=== PATIENT | female | born 1965 | race Caucasian/White ===

== ENCOUNTER → 2016-09-01 | Outpatient (CLI) | payer OTHER ==
[~2016-09-01] MED LIST: ACET-1047 PO; ACET-1256 PO; ATOR-22 PO; CLOP1TAB15; CLOP1TAB15 PO; DFL50 PO; FOLI1TAB7 PO; GLIM2TAB2 PO; GLIP5TAB11 PO; LRT5 PO; MCTP EXT; METF500T PO; MRLP17X PO; MTR500 PO; NCDT21X TD; SENN-65 PO; ZNTT/150 PO
[2016-09-01 17:22] LABS: BASO % 0.6 %; BASO ABS # 0.06 K/uL (0-0.2); COMPLETE YES; EOS % 2.6 %; HEMATOCRIT 48.2 % (37-47); IG% 0.2 %; LYMPH % 37.5 %; LYMPH ABS # 3.86 K/uL (1.2-3.4); MEAN CELL VOLUME 101.9 fL (80-100); MEAN CORPUSCULAR HEMOGLOBIN 34.9 pg (25-34); MEAN CORPUSCULAR HGB CONC 34.2 g/dl (32-36); MONO % 4.6 %; NEUT % 54.5 %; PLATELET COUNT 287 K/uL (130-400); RED BLOOD COUNT 4.73 M/uL (4.2-5.4); WHITE BLOOD COUNT 10.29 K/uL (4.8-10.8)
[2016-09-01 17:44] LABS: ALT/SGPT 22 U/L (12-78); BLOOD UREA NITROGEN 5 mg/dl (7-18); CALCIUM 9.7 mg/dl (8.5-10.1); CARBON DIOXIDE 26 mmol/L (21-32); CHLORIDE 99 mmol/L (98-107); CHOLESTEROL 231 mg/dl (0-200); CREATININE 0.77 mg/dl (0.60-1.20); GLUCOSE 142 mg/dl (70-99); POTASSIUM 3.7 mmol/L (3.5-5.1); SODIUM 135 mmol/L (136-145)
[2016-09-01 17:47] LABS: ALB/GLOB RATIO 0.7 (0.9-2); ALKALINE PHOSPHATASE 154 U/L (45-117); AST/SGOT 26 U/L (15-37); CHOLESTEROL/HDL RATIO 5.5; HDL CHOLESTEROL 42 mg/dl; LDL CHOLESTEROL CALCULATED 149 mg/dl; TRIGLYCERIDES 198 mg/dl (0-150); VERY LOW DENSITY LIPOPROT CALC 40 mg/dl
[2016-09-02 07:44] LABS: ESTIMATED AVERAGE GLUCOSE 194 mg/dl; HA1C FLAG Normal (Normal)
== END | disposition home or self-care (01) ==
LOC: C.LAB1850 15:58
PROVIDERS: ATTEND Physician Assistant
DX: E11.9 Type 2 diabetes mellitus without complications (principal)

== ENCOUNTER 2016-10-28 14:24 | Inpatient (IN) | payer OTHER ==
[~2016-10-28] VITALS: Ht 167.6 cm; Wt 69.7 kg
[~2016-10-28 14:24] MED LIST changes: -ACET-1047 PO; -ACET-1256 PO; -ATOR-22 PO; -CLOP1TAB15 PO; -DFL50 PO; -FOLI1TAB7 PO; -GLIM2TAB2 PO; -GLIP5TAB11 PO; -MCTP EXT; -METF500T PO; -MRLP17X PO; -MTR500 PO; -SENN-65 PO; -ZNTT/150 PO
[2016-10-28] MEDS ORDERED: SODIUM CHLORIDE 0.9% 1000ML 1,000 ML IV SCH (15:33)
[2016-10-28] MEDS ORDERED: GLIM2TAB2 PO (15:37)
[2016-10-28] MEDS ORDERED: CLOP1TAB15 PO (15:37)
[2016-10-28] MEDS ORDERED: ACET-1256 PO (15:37)
[2016-10-28] MEDS ORDERED: ZNTT/150 PO (15:37)
[2016-10-28] MEDS ORDERED: HYDROCODONE/ACETAMOPHEN 5/325MG TAB PO STA ×2 (15:45→17:22)
--- NOTE | 2016-10-28 15:55 | DIAGNOSTIC IMAGING REPORT ---
CHEST ONE VIEW PORTABLE HISTORY: 51 years-old Female acute weakness COMPARISON: Chest radiograph 08/22/2012 TECHNIQUE: Portable upright AP view of the chest FINDINGS: Patient is slightly rotated to the left. Cardiomediastinal and hilar silhouettes are within normal limits. No pneumothorax, pleural effusion or focal airspace consolidation. The bones are grossly intact. IMPRESSION: No acute cardiopulmonary process. The above report was generated using voice recognition software. It may contain grammatical, syntax or spelling errors. Electronically signed by: Hudson Strange M.D. 10/28/2016 3:53 PM Dictated Date/Time: 10/28/2016 3:52 PM
--- NOTE | 2016-10-28 16:21 | EMERGENCY ROOM VISIT NOTE ---
History First contact with patient: 15:00 Chief Complaint: WEAKNESS Stated Complaint: FALL/ EVAL Nursing Triage Summary: increasing weakness over the last 2-3 weeks. she has had a very bad yeast infection, treated. has not been eating and drinking well due to not being able to get to the bathroom. and fell today. 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 History of Present Illness The patient is a 51 year old female who presents to the Emergency Room with complaints of "fall". The patient states that she has a history of CVA, 11 years ago. She states that over the past 2-3 weeks she has had increasing weakness, and not been eating well. Because she is unable to get up to the bathroom, she has been swelling herself. This has led to a yeast infection. She's been battling this with powder. She is also present with a male, identified as her boyfriend. This is also her health aide. She also has aphasia, but is able to comprehend. 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 She has a past medical history of diabetes. They state they have called the family doctor, [facility] have been directed here to the emergency department for potential admission so that she can care for her immediate health problems, and then follow-up for rehabilitation. She also requests that we remove the ring on her left ring finger is been stuck for the past 3 months. Review of Systems A complete 10-point Review of Systems was discussed with the patient, with pertinent positives and negatives listed in the History of Present Illness. All remaining Review of Systems questions can be considered negative unless otherwise specified. 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 Social History Smoking Status: Current Every Day Smoker Alcohol Use: heavy Drug Use: none Marital Status: Housing Status: lives with family Occupation Status: disabled Patient lives at home with boyfriend/crown and bridge dental lab technician. Current/Historical Medications Scheduled Clopidogrel (Plavix), 75 MG PO DAILY Glimepiride (Glimepiride), 2 MG PO DAILY Scheduled PRN Acetaminophen (Tylenol), 1,500 MG PO DAILY PRN for Pain Ranitidine (Zantac), 150 MG PO Q12 PRN for HEARTBURN Physical Exam Vital Signs Date Time Temp Pulse Resp B/P (MAP) Pulse Ox O2 Delivery O2 Flow Rate FiO2 10/28/16 18:30 62 16 145/81 10/28/16 17:27 64 18 158/84 10/28/16 15:47 99 Room Air 10/28/16 14:30 37.0 101 20 179/132 99 Room Air Physical Exam VITAL SIGNS - Vital signs and nursing notes were reviewed. Patient is afebrile , hypertensive at 139/132, nontachypneic cardiac and is saturating 99%. GENERAL -51-year-old female appearing her stated age who is in no acute distress. Patient does appear to be paralyzed on the right side. She communicates in partial sentences. Communicates well with provider and answers questions appropriately. SKIN - Without rashes. There is a well-healed surgical scar on the left medial knee. HEAD - NC/AT. EYES - Sclera anicteric. Palpebral conjunctiva pink and moist with no injection noted. EARS - No deformities of external structures noted on gross examination bilaterally. NOSE - Midline and without cyanosis. No epistaxis or purulent drainage noted. MOUTH/OROPHARYNX - Without perioral cyanosis. Buccal mucosa pink and moist and without leukoplakia. NECK - Neck with FROM. Supple to palpation. No lymphadenopathy noted. No nuchal rigidity. LUNGS - Chest wall symmetric without accessory muscle use, intercostals retractions, or central cyanosis. Normal vesicular breath sounds CTA B/L. No wheezes, rales, or rhonchi appreciated. CARDIAC - RRR with S1/S2. No murmur, rubs, or gallops appreciated. NEUROLOGIC - neurologic deficits appreciated upon the patient's right side. These appear to be chronic. PSYCH - A&O, and cooperates fully with examiner. Pt is very pleasant and interacts well with examiner. Medical Decision & Procedures ER Provider Diagnostic Interpretation: CHEST ONE VIEW PORTABLE HISTORY: 51 years-old Female acute weakness COMPARISON: Chest radiograph 08/22/2012 TECHNIQUE: Portable upright AP view of the chest FINDINGS: Patient is slightly rotated to the left. Cardiomediastinal and hilar silhouettes are within normal limits. No pneumothorax, pleural effusion or focal airspace consolidation. The bones are grossly intact. IMPRESSION: No acute cardiopulmonary process. The above report was generated using voice recognition software. It may contain grammatical, syntax or spelling errors. Electronically signed by: Hudson Strange M.D. 10/28/2016 3:53 PM Dictated Date/Time: 10/28/2016 3:52 PM HEAD WITHOUT CONTRAST (CT) CLINICAL HISTORY: 51 years-old Female presenting with Stroke, weakness for 2 to 3 weeks. TECHNIQUE: Multidetector CT imaging of the head was performed without the use of intravenous contrast. IV contrast: None. A dose lowering technique was used consistent with the principles of ALARA (as low as reasonably achievable). COMPARISON: 08/22/2012. CT DOSE (mGy.cm): The estimated cumulative dose is 537.48 mGy.cm. FINDINGS: Metallurgical Inspector topogram: Unremarkable. Proportional ventricular and sulcal prominence, likely age-related parenchymal volume loss. Periventricular and subcortical white matter hypoattenuation, nonspecific but likely indicative of chronic small vessel ischemic change. Old lacunar infarct noted in the right basal ganglia. Evidence of extensive chronic left MCA territory infarct unchanged in appearance as prior exam. No mass effect or midline shift. No extra-axial fluid collection. Paranasal sinuses and mastoid air cells clear. Calvarium intact. IMPRESSION: 1. No acute intracranial pathology. 2. Chronic left MCA territory infarct, old right basal ganglia infarct, and chronic small vessel ischemic change. Electronically signed by: Arcenio Todd M.D. 10/28/2016 4:54 PM Dictated Date/Time: 10/28/2016 4:51 PM Laboratory Results 10/28/16 16:10 Red Blood Count 4.88, Mean Corpuscular Volume 103.1, Mean Corpuscular Hemoglobin 34.4, Mean Corpuscular Hemoglobin Concent 33.4, Mean Platelet Volume 9.7, Neutrophils (%) (Auto) 59.8, Lymphocytes (%) (Auto) 32.5, Monocytes (%) ( Auto) 4.7, Eosinophils (%) (Auto) 2.3, Basophils (%) (Auto) 0.4, Neutrophils # ( Auto) 5.54, Lymphocytes # (Auto) 3.01, Monocytes # (Auto) 0.44, Eosinophils # ( Auto) 0.21, Basophils # (Auto) 0.04 10/28/16 16:10 Test 10/28/16 16:10 White Blood Count 9.27 K/uL (4.8-10.8) Red Blood Count 4.88 M/uL (4.2-5.4) Hemoglobin 16.8 g/dL (12.0-16.0) Hematocrit 50.3 % (37-47) Mean Corpuscular Volume 103.1 fL (80-100) Mean Corpuscular Hemoglobin 34.4 pg (25-34) Mean Corpuscular Hemoglobin Concent 33.4 g/dl (32-36) Platelet Count 412 K/uL (130-400) Mean Platelet Volume 9.7 fL (7.4-10.4) Neutrophils (%) (Auto) 59.8 % Lymphocytes (%) (Auto) 32.5 % Monocytes (%) (Auto) 4.7 % Eosinophils (%) (Auto) 2.3 % Basophils (%) (Auto) 0.4 % Neutrophils # (Auto) 5.54 K/uL (1.4-6.5) Lymphocytes # (Auto) 3.01 K/uL (1.2-3.4) Monocytes # (Auto) 0.44 K/uL (0.11-0.59) Eosinophils # (Auto) 0.21 K/uL (0-0.5) Basophils # (Auto) 0.04 K/uL (0-0.2) RDW Standard Deviation 52.0 fL (36.4-46.3) RDW Coefficient of Variation 13.9 % (11.5-14.5) Immature Granulocyte % (Auto) 0.3 % Immature Granulocyte # (Auto) 0.03 K/uL (0.00-0.02) Prothrombin Time 10.7 SECONDS (9.0-12.0) Prothromb Time International Ratio 1.0 (0.9-1.1) Activated Partial Thromboplast Time 27.8 SECONDS (21.0-31.0) Partial Thromboplastin Ratio 1.1 Anion Gap 9.0 mmol/L (3-11) Est Creatinine Clear Calc Drug Dose 78.8 ml/min Estimated GFR () 89.4 Estimated GFR (Non- 77.1 BUN/Creatinine Ratio 8.9 (10-20) Calcium Level 9.5 mg/dl (8.5-10.1) Total Creatine Kinase 40 U/L (26-192) Creatine Kinase MB < 0.5 ng/ml (0.5-3.6) Creatine Kinase MB Ratio (0-3.0) Troponin I < 0.015 ng/ml (0-0.045) Chemistry Specimen Hemolysis Medications Administered Medications (Trade) Dose Ordered Sig/Chato Route Start Time Stop Time Status Last Admin Dose Admin Sodium Chloride 1,000 ml @ 50 mls/hr Q20H IV 10/28/16 15:33 10/28/16 18:51 DC 10/28/16 17:32 50 MLS/HR Acetaminophen/ Hydrocodone Bitart ([place] 5/325 Tab) 1 tab NOW STAT PO 10/28/16 17:22 10/28/16 17:23 DC 10/28/16 17:35 1 TAB Acetaminophen/ Hydrocodone Bitart ([place] 5/325 Tab) 1 tab Q6H PRN PO 10/28/16 18:30 11/11/16 18:29 10/28/16 23:20 1 TAB Medical Decision Patient was seen and evaluated as above. After obtaining a thorough history and physical examination IV access was initiated, and the above workup was performed. Patient was at store today with essentially failure to thrive at home. Her crown and bridge dental lab technician notes he is doing everything he can for her, but feels as though he is unable to provide for her basic needs. She also has progressive weakness, 2 point were she cannot get to use the bathroom and is becoming incontinent because of such. She now has a yeast like infection around her genital region. There is no vaginal discharge. She requests that we cut her ring off, as she is unable to remove it and something for pain in regard to her left knee. She will be given [place]. CT of the head reveals old infarcts. Bedside EKG does appear to be worse compared to previous, but no evidence of an NE at this time. CBC reveals no leukocytosis, hemoglobin is high at 16. Coags unremarkable. Sodium low at 134, kidney function okay, troponin negative. Chest x-ray negative for acute process. At this time I believe the patient should be admitted to this facility to help with her failure to thrive, as well as to further management. Please refer to further documentation regarding her stay. In evaluation treatment this patient the following differential diagnoses were entertained: Failure to thrive, new CVA, infection, on others. Impression Primary Impression: Failure to thrive Departure Information Dispostion Admitted as an inpatient Condition POOR Referrals Pro,Ant Odell M.D. (PCP) Patient Instructions [facility]
[2016-10-28 16:22] LABS: BASO % 0.4 %; BASO ABS # 0.04 K/uL (0-0.2); COMPLETE YES; EOS % 2.3 %; HEMATOCRIT 50.3 % (37-47); IG% 0.3 %; LYMPH % 32.5 %; LYMPH ABS # 3.01 K/uL (1.2-3.4); MEAN CELL VOLUME 103.1 fL (80-100); MEAN CORPUSCULAR HEMOGLOBIN 34.4 pg (25-34); MEAN CORPUSCULAR HGB CONC 33.4 g/dl (32-36); MEAN PLATELET VOLUME 9.7 fL (7.4-10.4); MONO % 4.7 %; NEUT % 59.8 %; PLATELET COUNT 412 K/uL (130-400); RED BLOOD COUNT 4.88 M/uL (4.2-5.4); WHITE BLOOD COUNT 9.27 K/uL (4.8-10.8)
[2016-10-28 16:39] LABS: PARTIAL THROMBOPLASTIN RATIO 1.1; PROTHROMBIN TIME (PATIENT) 10.7 SECONDS (9.0-12.0)
[2016-10-28 16:42] LABS: BLOOD UREA NITROGEN 8 mg/dl (7-18); BUN/CREATININE RATIO 8.9 (10-20); CALCIUM 9.5 mg/dl (8.5-10.1); CARBON DIOXIDE 26 mmol/L (21-32); CHLORIDE 99 mmol/L (98-107); CREATININE 0.87 mg/dl (0.60-1.20); GLUCOSE 117 mg/dl (70-99); POTASSIUM 3.7 mmol/L (3.5-5.1); SODIUM 134 mmol/L (136-145)
--- NOTE | 2016-10-28 16:55 | DIAGNOSTIC IMAGING REPORT ---
HEAD WITHOUT CONTRAST (CT) CLINICAL HISTORY: 51 years-old Female presenting with Stroke, weakness for 2 to 3 weeks. TECHNIQUE: Multidetector CT imaging of the head was performed without the use of intravenous contrast. IV contrast: None. A dose lowering technique was used consistent with the principles of ALARA (as low as reasonably achievable). COMPARISON: 08/22/2012. CT DOSE (mGy.cm): The estimated cumulative dose is 537.48 mGy.cm. FINDINGS: Advertisement Distributor topogram: Unremarkable. Proportional ventricular and sulcal prominence, likely age-related parenchymal volume loss. Periventricular and subcortical white matter hypoattenuation, nonspecific but likely indicative of chronic small vessel ischemic change. Old lacunar infarct noted in the right basal ganglia. Evidence of extensive chronic left MCA territory infarct unchanged in appearance as prior exam. No mass effect or midline shift. No extra-axial fluid collection. Paranasal sinuses and mastoid air cells clear. Calvarium intact. IMPRESSION: 1. No acute intracranial pathology. 2. Chronic left MCA territory infarct, old right basal ganglia infarct, and chronic small vessel ischemic change. Electronically signed by: Arcenio Todd M.D. 10/28/2016 4:54 PM Dictated Date/Time: 10/28/2016 4:51 PM
[2016-10-28] MEDS ORDERED: RANITIDINE HCL 150 MG TAB PO PRN (18:30)
[2016-10-28] MEDS ORDERED: ONDANSETRON INJ 2 MG/ML 2 ML VIAL IV PRN (18:30)
[2016-10-28] MEDS ORDERED: ALUMINUM/MAGNESIUM/SIMETH (MAALOX MAX) 30 ML UDC PO PRN (18:30)
[2016-10-28] MEDS ORDERED: MAGNESIUM HYDROXIDE SUSP 30 ML UDC PO PRN (18:30)
--- NOTE | 2016-10-28 18:53 | History and Physical ---
History & Physical Date & Time of Service: Oct 28, 2016 at 18:36 Chief Complaint: Fall/ Eval Primary Care Physician: Ant Sprague M.D. History of Present Illness Source: patient, caregiver, clinic records, hospital records Patient is a pleasant 51 y/o female, with 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 Per cyber legal advisor/boyfriend, him and patient would like patient to go to [facility] for acute rehab. Patient has been there in the past with great success. The boyfriend has spoken to [facility], but they will not take patient with yeast infection. Patient has been battling vaginal yeast infection x2 months now- being treated with Nystatin powder. However, the patient is incontinent of urine and she has become so weak she cannot get up to change herself, worsening the infection. Engine Manager states she will lay in a wet diaper for hours. Patient just hasn't been feeling like being active lately, which has led to a progression of weakness, now at that point that she cannot get out of bed. Boyfriend/cyber legal advisor states he can no longer care for her at this point. At baseline, patient is able to change herself and bathe herself. She has been eating/drinking very little due to fear of urinating and worsening vaginal symptoms. Additionally, patient has chronic knee pain which has led to decreased mobility. Per cyber legal advisor, no one will operate on her knees due to her young age. +vaginal itchiness. Patient denies any fever, chills, sweats, lightheadedness, dizziness, vision changes, CP, palpitations, edema, SOB, wheezing, cough, abdominal pain, nausea, vomiting, diarrhea, urinary symptoms, melena, numbness/tingling, muscle/joint pain, anxiety/depression, active bleeding, or new skin discoloration/changes. Past Medical/Surgical History Medical Problems: CVA T2DM GERD Chronic knee pain h/o tobacco abuse Social History Smoking Status: Current Every Day Smoker Drug Use: none Marital Status: Housing status: lives with family Occupational Status: disabled Immunizations History of Influenza Vaccine: No History of Tetanus Vaccine?: UTD History of Pneumococcal: No History of Hepatitis B Vaccine: Unknown Multi-Drug Resistant Organisms History of MDRO: No Allergies Coded Allergies: No Known Allergies (Verified , 02/01/06) Home Medications Scheduled Clopidogrel (Plavix), 75 MG PO DAILY Glimepiride (Glimepiride), 2 MG PO DAILY Scheduled PRN Acetaminophen (Tylenol), 1,500 MG PO DAILY PRN for Pain Ranitidine (Zantac), 150 MG PO Q12 PRN for HEARTBURN Physical Exam Vital Signs Date Time Temp Pulse Resp B/P (MAP) Pulse Ox O2 Delivery O2 Flow Rate FiO2 10/28/16 17:27 64 18 158/84 10/28/16 15:47 99 Room Air 10/28/16 14:30 37.0 101 20 179/132 99 Room Air Diagnostics Laboratory Results Results Past 24 Hours Test 10/28/16 16:10 Range/Units White Blood Count 9.27 4.8-10.8 K/uL Red Blood Count 4.88 4.2-5.4 M/uL Hemoglobin 16.8 12.0-16.0 g/dL Hematocrit 50.3 37-47 % Mean Corpuscular Volume 103.1 80-100 fL Mean Corpuscular Hemoglobin 34.4 25-34 pg Mean Corpuscular Hemoglobin Concent 33.4 32-36 g/dl Platelet Count 412 130-400 K/uL Mean Platelet Volume 9.7 7.4-10.4 fL Neutrophils (%) (Auto) 59.8 % Lymphocytes (%) (Auto) 32.5 % Monocytes (%) (Auto) 4.7 % Eosinophils (%) (Auto) 2.3 % Basophils (%) (Auto) 0.4 % Neutrophils # (Auto) 5.54 1.4-6.5 K/uL Lymphocytes # (Auto) 3.01 1.2-3.4 K/uL Monocytes # (Auto) 0.44 0.11-0.59 K/uL Eosinophils # (Auto) 0.21 0-0.5 K/uL Basophils # (Auto) 0.04 0-0.2 K/uL RDW Standard Deviation 52.0 36.4-46.3 fL RDW Coefficient of Variation 13.9 11.5-14.5 % Immature Granulocyte % (Auto) 0.3 % Immature Granulocyte # (Auto) 0.03 0.00-0.02 K/uL Prothrombin Time 10.7 9.0-12.0 SECONDS Prothromb Time International Ratio 1.0 0.9-1.1 Activated Partial Thromboplast Time 27.8 21.0-31.0 SECONDS Partial Thromboplastin Ratio 1.1 Sodium Level 134 136-145 mmol/L Potassium Level 3.7 3.5-5.1 mmol/L Chloride Level 99 98-107 mmol/L Carbon Dioxide Level 26 21-32 mmol/L Anion Gap 9.0 3-11 mmol/L Blood Urea Nitrogen 8 7-18 mg/dl Creatinine 0.87 0.60-1.20 mg/dl Est Creatinine Clear Calc Drug Dose 78.8 ml/min Estimated GFR () 89.4 Estimated GFR (Non- 77.1 BUN/Creatinine Ratio 8.9 10-20 Random Glucose 117 70-99 mg/dl Calcium Level 9.5 8.5-10.1 mg/dl Total Creatine Kinase 40 26-192 U/L Creatine Kinase MB < 0.5 0.5-3.6 ng/ml Creatine Kinase MB Ratio 0-3.0 Troponin I < 0.015 0-0.045 ng/ml Chemistry Specimen Hemolysis Diagnostic Radiology HEAD WITHOUT CONTRAST (CT) CLINICAL HISTORY: 51 years-old Female presenting with Stroke, weakness for 2 to 3 weeks. TECHNIQUE: Multidetector CT imaging of the head was performed without the use of intravenous contrast. IV contrast: None. A dose lowering technique was used consistent with the principles of ALARA (as low as reasonably achievable). COMPARISON: 08/22/2012. CT DOSE (mGy.cm): The estimated cumulative dose is 537.48 mGy.cm. FINDINGS: Senior Research Scientist topogram: Unremarkable. Proportional ventricular and sulcal prominence, likely age-related parenchymal volume loss. Periventricular and subcortical white matter hypoattenuation, nonspecific but likely indicative of chronic small vessel ischemic change. Old lacunar infarct noted in the right basal ganglia. Evidence of extensive chronic left MCA territory infarct unchanged in appearance as prior exam. No mass effect or midline shift. No extra-axial fluid collection. Paranasal sinuses and mastoid air cells clear. Calvarium intact. IMPRESSION: 1. No acute intracranial pathology. 2. Chronic left MCA territory infarct, old right basal ganglia infarct, and chronic small vessel ischemic change. Electronically signed by: Arcenio Todd M.D. 10/28/2016 4:54 PM Dictated Date/Time: 10/28/2016 4:51 PM The status of this report is Signed. Draft = Not yet reviewed or approved by Radiologist. Signed = Reviewed and approved by Radiologist. CHEST ONE VIEW PORTABLE HISTORY: 51 years-old Female acute weakness COMPARISON: Chest radiograph 08/22/2012 TECHNIQUE: Portable upright AP view of the chest FINDINGS: Patient is slightly rotated to the left. Cardiomediastinal and hilar silhouettes are within normal limits. No pneumothorax, pleural effusion or focal airspace consolidation. The bones are grossly intact. IMPRESSION: No acute cardiopulmonary process. The above report was generated using voice recognition software. It may contain grammatical, syntax or spelling errors. Electronically signed by: Hudson Strange M.D. 10/28/2016 3:53 PM Dictated Date/Time: 10/28/2016 3:52 PM The status of this report is Signed. Draft = Not yet reviewed or approved by Radiologist. Signed = Reviewed and approved by Radiologist. EKG DARCI JACOBSON ID:[id number] 28-OCT-2016 15:58:14 [facility] Poor data quality, interpretation may be adversely affected Normal sinus rhythm Nonspecific T wave abnormality Abnormal ECG When compared with ECG of 01-FEB-2006 16:44, Nonspecific T wave abnormality, worse in Inferior leads Nonspecific T wave abnormality now evident in Lateral leads 25mm/s 10mm/mV 150Hz 8.0 SP2 12SL 241 [place]: 10 Referred by: Ant Sprague Unconfirmed Vent. 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 Progressive weakness: - Admit to med/surg - PT/OT - Patient/boyfriend hoping for placement at [facility] Vaginal yeast infection: - Continue Nystatin powder BID - Encouraged cleanliness and keeping area dry h/o CVA w/ residual right-sided paralysis and asphasia: Continue Plavix 75 mg daily T2DM: - Hold Glimepiride 2 mg daily - BSG ACHS and sliding insulin scale Tobacco abuse- smoke 1-1.5 ppd: - Smoking cessation counselling - Denies need for nicotine patch Chronic knee pain: [place] q6 PRN for management GERD: Zantac 150 mg BID DVT prophylaxis: Lovenox SQ Dispo: From home, lives w/ cyber legal advisor/boyfriend- PT/OT and social service consultation for hopeful placement to [facility] i personally examined pt and verified all gay points w T Murarik PAC weak. boyfriend notes taht due to pain from skin/yeast she was not eating in the hopes she wouldn't have BM then she got weaker from there. now can't take care of her notes that this has happened before similar situations and with nutrition support and PT/OT she's done better. notes [facility] "works miracles' but also notes that after one [facility] stay she was then transitioned to [facility] and they would not at all want to go back there. vitals noted nad breathing unlabored no pallor or icterus failure to thrive -suspect boyfriend's dx that poor PO intake led to worsenign decline and now she 's too weak to care for herself is correct -PT/OT -nutritional support -anticipate [facility] placement skin yeast infection -local skin care otherwise as above Level of Care Med/Surg Resuscitation Status FULL RESUSCITATION VTE Prophylaxis VTE Risk Assessment Done? Y/N: Yes Risk Level: Moderate Given or contraindicated: Enoxaparin (Lovenox)SQ, T.E.D. Stockings, SCD's
[2016-10-28 18:59] VITALS: BMI 26.4
[2016-10-28] MEDS ORDERED: GLUCAGON FOR INJ 1 MG VIAL SQ PRN (19:00)
[2016-10-28] MEDS ORDERED: GLUCOSE 40% GEL 15 GM TUBE PO PRN (19:00)
[2016-10-28] MEDS ORDERED: POLYETHYLENE (MIRALAX) 17 GM PACK PO PRN (19:00)
[2016-10-28] MEDS ORDERED: GLUCOSE 10 TABS/TUBE PO PRN (19:00)
[2016-10-28] MEDS ORDERED: DEXTROSE 50% 50 ML SYR IV PRN (19:00)
[2016-10-28 20:49] VITALS: BP 135/91; PULSE 88; TEMP 36.6; O2SAT 98
[2016-10-28] MEDS: INSULIN ASPART 100 UNITS/ML 3 ML PEN SC SCH (21:00)
[2016-10-28] MEDS: NYSTATIN POWDER 15GM BTL EXT SCH (21:44)
[2016-10-28 23:20] VITALS: BP 117/68; PULSE 77; TEMP 36.7; O2SAT 97
[2016-10-28] MEDS: HYDROCODONE/ACETAMOPHEN 5/325MG TAB PO PRN (23:20)
[2016-10-28] MEDS ORDERED: PNEUMOCOCCAL POLYSACCHARIDES 25 MCG/0.5 ML VIAL/SYR IM. ONE (23:30)
[2016-10-28] MEDS ORDERED: PNEUMOCOCCAL ADMINISTRATION CHARGE ONE (23:30)
[2016-10-28] MEDS ORDERED: IV FLUIDS COMPLETED PRN (23:30)
[2016-10-29] MEDS: ACETAMINOPHEN 325 MG TAB PO PRN ×2 (02:52→20:49)
[2016-10-29 06:21] LABS: HEMATOCRIT 41.7 % (37-47); MEAN CELL VOLUME 103.7 fL (80-100); MEAN CORPUSCULAR HEMOGLOBIN 35.1 pg (25-34); MEAN CORPUSCULAR HGB CONC 33.8 g/dl (32-36); MEAN PLATELET VOLUME 9.6 fL (7.4-10.4); PLATELET COUNT 353 K/uL (130-400); RED BLOOD COUNT 4.02 M/uL (4.2-5.4)
[2016-10-29 06:54] LABS: BUN/CREATININE RATIO 12.2 (10-20); CALCIUM 8.6 mg/dl (8.5-10.1); CREATININE 0.57 mg/dl (0.60-1.20); POTASSIUM 3.1 mmol/L (3.5-5.1)
[2016-10-29 07:19] VITALS: BP 126/87; PULSE 78; TEMP 36.5; O2SAT 97
[2016-10-29 07:45] VITALS: O2SAT 97
[2016-10-29] MEDS: NYSTATIN POWDER 15GM BTL EXT SCH ×2 (07:53→20:52)
[2016-10-29] MEDS: CLOPIDOGREL BISULFATE 75 MG TAB PO SCH (07:53)
[2016-10-29] MEDS: ENOXAPARIN 40 MG/0.4 ML SYR SQ SCH (07:55)
[2016-10-29] MEDS: HYDROCODONE/ACETAMOPHEN 5/325MG TAB PO PRN ×3 (08:00→23:32)
[2016-10-29] MEDS: INSULIN ASPART 100 UNITS/ML 3 ML PEN SC SCH ×4 (08:01→20:47)
[2016-10-29] MEDS ORDERED: BOOST VANILLA PO SCH ×2 (09:00)
[2016-10-29 14:07] VITALS: BP 126/80
[2016-10-29] MEDS ORDERED: NURSING VERBAL MED ORDER ONE (14:30)
[2016-10-29] MEDS ORDERED: MICONAZOLE NITRATE POWDER 43 GM EXT PRN (14:45)
[2016-10-29 16:00] VITALS: O2SAT 97
[2016-10-29 16:22] VITALS: BP 108/67; PULSE 75; TEMP 36.8; O2SAT 99
[2016-10-29 16:42] VITALS: Ht 167.6 cm; Wt 69.7 kg
[2016-10-29] MEDS: BOOST GLUCOSE CONTROL PO SCH (16:42)
[2016-10-29 23:37] VITALS: BP 113/73; PULSE 67; TEMP 36.7; O2SAT 96
--- NOTE | 2016-10-30 03:10 | Hospitalist Progress Note ---
Hospitalist Progress Note Date of Service Oct 29, 2016. Subjective Pt evaluation today including: conversation w/ patient patient with no complaints Objective Vital Signs Date Time Temp Pulse Resp B/P (MAP) Pulse Ox O2 Delivery O2 Flow Rate FiO2 10/30/16 00:00 Room Air 10/29/16 23:37 36.7 67 18 113/73 (86) 96 Room Air 10/29/16 16:22 36.8 75 20 108/67 (81) 99 Room Air 10/29/16 16:00 97 Room Air 10/29/16 07:45 97 Room Air 10/29/16 07:19 36.5 78 18 126/87 (100) 97 Room Air Physical Exam General Appearance: no apparent distress Eyes: normal inspection ENT: hearing grossly normal Neck: trachea midline Respiratory/Chest: lungs clear Cardiovascular: regular rate, rhythm Abdomen: normal bowel sounds Neurologic/Psychiatric: alert Laboratory Results Last 24 Hours Test 10/29/16 05:54 10/29/16 08:00 10/29/16 11:32 10/29/16 16:37 White Blood Count 8.20 K/uL Red Blood Count 4.02 M/uL Hemoglobin 14.1 g/dL Hematocrit 41.7 % Mean Corpuscular Volume 103.7 fL Mean Corpuscular Hemoglobin 35.1 pg Mean Corpuscular Hemoglobin Concent 33.8 g/dl RDW Standard Deviation 51.7 fL RDW Coefficient of Variation 13.7 % Platelet Count 353 K/uL Mean Platelet Volume 9.6 fL Sodium Level 136 mmol/L Potassium Level 3.1 mmol/L Chloride Level 104 mmol/L Carbon Dioxide Level 24 mmol/L Anion Gap 8.0 mmol/L Blood Urea Nitrogen 7 mg/dl Creatinine 0.57 mg/dl Est Creatinine Clear Calc Drug Dose 120.3 ml/min Estimated GFR () 124.4 Estimated GFR (Non- 107.3 BUN/Creatinine Ratio 12.2 Random Glucose 59 mg/dl Calcium Level 8.6 mg/dl Bedside Glucose 80 mg/dl 172 mg/dl 76 mg/dl Test 10/29/16 20:32 Bedside Glucose 102 mg/dl Assessment and Plan Patient is a pleasant 51 y/o female, with 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 1. Progressive weakness: - Admit to med/surg - PT/OT Working on possible str 2. Vaginal yeast infection: - Continue Nystatin powder BID - Encouraged cleanliness and keeping area dry 3. 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 T2DM: - Hold Glimepiride 2 mg daily - BSG ACHS and sliding insulin scale 5. Tobacco abuse- smoke 1-1.5 ppd: - Smoking cessation counselling - Denies need for nicotine patch 6. Chronic knee pain: [place] q6 PRN for management 7. GERD: Zantac 150 mg BID 8. DVT prophylaxis: Lovenox SQ Discharge planning: uncertain
[2016-10-30] MEDS: HYDROCODONE/ACETAMOPHEN 5/325MG TAB PO PRN ×3 (05:55→20:45)
[2016-10-30] MEDS: INSULIN ASPART 100 UNITS/ML 3 ML PEN SC SCH ×4 (06:30→20:45)
[2016-10-30 07:10] VITALS: BP 138/88; PULSE 63; TEMP 36.8; O2SAT 96
[2016-10-30] MEDS: BOOST GLUCOSE CONTROL PO SCH ×2 (08:00→12:00)
[2016-10-30] MEDS: NYSTATIN POWDER 15GM BTL EXT SCH ×2 (09:09→20:45)
[2016-10-30] MEDS: ENOXAPARIN 40 MG/0.4 ML SYR SQ SCH (09:10)
[2016-10-30] MEDS: CLOPIDOGREL BISULFATE 75 MG TAB PO SCH (09:10)
[2016-10-30 14:54] VITALS: BP 127/67; PULSE 68; TEMP 36.7; O2SAT 99
[2016-10-30 16:00] VITALS: O2SAT 99
[2016-10-30 23:04] VITALS: BP 119/76; PULSE 76; TEMP 36.6; O2SAT 96
--- NOTE | 2016-10-31 00:59 | Hospitalist Progress Note ---
Hospitalist Progress Note Date of Service Oct 30, 2016. Subjective Pt evaluation today including: conversation w/ patient patient with no complaints Objective Vital Signs Date Time Temp Pulse Resp B/P (MAP) Pulse Ox O2 Delivery O2 Flow Rate FiO2 10/30/16 00:00 Room Air 10/29/16 23:37 36.7 67 18 113/73 (86) 96 Room Air 10/29/16 16:22 36.8 75 20 108/67 (81) 99 Room Air 10/29/16 16:00 97 Room Air 10/29/16 07:45 97 Room Air 10/29/16 07:19 36.5 78 18 126/87 (100) 97 Room Air Physical Exam General Appearance: no apparent distress Eyes: normal inspection ENT: hearing grossly normal Neck: trachea midline Respiratory/Chest: lungs clear Cardiovascular: regular rate, rhythm Abdomen: normal bowel sounds Extremities: no calf tenderness Neurologic/Psychiatric: alert Laboratory Results Last 24 Hours Test 10/29/16 05:54 10/29/16 08:00 10/29/16 11:32 10/29/16 16:37 White Blood Count 8.20 K/uL Red Blood Count 4.02 M/uL Hemoglobin 14.1 g/dL Hematocrit 41.7 % Mean Corpuscular Volume 103.7 fL Mean Corpuscular Hemoglobin 35.1 pg Mean Corpuscular Hemoglobin Concent 33.8 g/dl RDW Standard Deviation 51.7 fL RDW Coefficient of Variation 13.7 % Platelet Count 353 K/uL Mean Platelet Volume 9.6 fL Sodium Level 136 mmol/L Potassium Level 3.1 mmol/L Chloride Level 104 mmol/L Carbon Dioxide Level 24 mmol/L Anion Gap 8.0 mmol/L Blood Urea Nitrogen 7 mg/dl Creatinine 0.57 mg/dl Est Creatinine Clear Calc Drug Dose 120.3 ml/min Estimated GFR () 124.4 Estimated GFR (Non- 107.3 BUN/Creatinine Ratio 12.2 Random Glucose 59 mg/dl Calcium Level 8.6 mg/dl Bedside Glucose 80 mg/dl 172 mg/dl 76 mg/dl Test 10/29/16 20:32 Bedside Glucose 102 mg/dl Assessment and Plan Patient is a pleasant 51 y/o female, with 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 1. Progressive weakness: - Admit to med/surg - PT/OT Working on possible str 2. Vaginal yeast infection: - Continue Nystatin powder BID - Encouraged cleanliness and keeping area dry 3. 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 T2DM: - Hold Glimepiride 2 mg daily - BSG ACHS and sliding insulin scale 5. Tobacco abuse- smoke 1-1.5 ppd: - Smoking cessation counselling - Denies need for nicotine patch discussed in detail the need to quit 6. Chronic knee pain: [place] q6 PRN for management 7. GERD: Zantac 150 mg BID 8. DVT prophylaxis: Lovenox SQ
[2016-10-31] MEDS: HYDROCODONE/ACETAMOPHEN 5/325MG TAB PO PRN ×3 (05:58→18:13)
[2016-10-31] MEDS: INSULIN ASPART 100 UNITS/ML 3 ML PEN SC SCH ×4 (06:30→21:00)
[2016-10-31 07:47] VITALS: BP 130/82; PULSE 64; TEMP 36.6; O2SAT 99
[2016-10-31] MEDS: BOOST GLUCOSE CONTROL PO SCH ×3 (07:54→18:11)
[2016-10-31 08:17] LABS: MEAN CELL VOLUME 105.7 fL (80-100); MEAN CORPUSCULAR HEMOGLOBIN 35.1 pg (25-34); MEAN CORPUSCULAR HGB CONC 33.3 g/dl (32-36); MEAN PLATELET VOLUME 9.6 fL (7.4-10.4); PLATELET COUNT 361 K/uL (130-400); RED BLOOD COUNT 4.07 M/uL (4.2-5.4); WHITE BLOOD COUNT 6.58 K/uL (4.8-10.8)
[2016-10-31] MEDS: CLOPIDOGREL BISULFATE 75 MG TAB PO SCH (08:22)
[2016-10-31] MEDS: ENOXAPARIN 40 MG/0.4 ML SYR SQ SCH (08:22)
[2016-10-31] MEDS: NYSTATIN POWDER 15GM BTL EXT SCH ×2 (08:22→21:08)
[2016-10-31 08:43] LABS: BUN/CREATININE RATIO 13.8 (10-20); CALCIUM 9.1 mg/dl (8.5-10.1); CREATININE 0.61 mg/dl (0.60-1.20); POTASSIUM 4.3 mmol/L (3.5-5.1)
[2016-10-31 15:57] VITALS: BP 131/84; PULSE 70; TEMP 36.6; O2SAT 97
[2016-10-31 23:47] VITALS: BP 128/82; PULSE 84; TEMP 36.5; O2SAT 96
[2016-11-01] MEDS: HYDROCODONE/ACETAMOPHEN 5/325MG TAB PO PRN ×4 (00:07→21:13)
--- NOTE | 2016-11-01 01:34 | Hospitalist Progress Note ---
Hospitalist Progress Note Date of Service Oct 31, 2016. Subjective Pt evaluation today including: conversation w/ patient Patient with no complaints today looking better encouraged to quit smoking Objective Vital Signs Date Time Temp Pulse Resp B/P (MAP) Pulse Ox O2 Delivery O2 Flow Rate FiO2 10/30/16 23:04 36.6 76 18 119/76 (90) 96 Room Air 10/30/16 16:00 99 Room Air 10/30/16 14:54 36.7 68 16 127/67 (87) 99 Room Air 10/30/16 08:00 Room Air 10/30/16 07:10 36.8 63 18 138/88 (105) 96 Room Air 10/30/16 04:00 Room Air Physical Exam Eyes: normal inspection ENT: hearing grossly normal Neck: supple Respiratory/Chest: lungs clear Cardiovascular: regular rate, rhythm Laboratory Results Last 24 Hours Test 10/30/16 07:29 10/30/16 11:11 10/30/16 16:27 10/30/16 20:10 Bedside Glucose 110 mg/dl 125 mg/dl 108 mg/dl 110 mg/dl Assessment and Plan Patient is a pleasant 51 y/o female, with 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 1. Progressive weakness: - Admit to med/surg - PT/OT Working on possible str 2. Vaginal yeast infection: - Continue Nystatin powder BID - Encouraged cleanliness and keeping area dry 3. 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 T2DM: - Hold Glimepiride 2 mg daily - BSG ACHS and sliding insulin scale 5. Tobacco abuse- smoke 1-1.5 ppd: - Smoking cessation counselling - Denies need for nicotine patch 6. Chronic knee pain: [place] q6 PRN for management 7. GERD: Zantac 150 mg BID 8. DVT prophylaxis: Lovenox SQ Discharge planning: senior living facility
[2016-11-01 07:59] VITALS: BP 139/90; PULSE 76; TEMP 36.7; O2SAT 100
[2016-11-01] MEDS: INSULIN ASPART 100 UNITS/ML 3 ML PEN SC SCH ×4 (07:59→21:00)
[2016-11-01] MEDS: NYSTATIN POWDER 15GM BTL EXT SCH ×2 (08:00→21:13)
[2016-11-01] MEDS: BOOST GLUCOSE CONTROL PO SCH ×3 (08:00→17:00)
[2016-11-01] MEDS: ENOXAPARIN 40 MG/0.4 ML SYR SQ SCH (08:01)
[2016-11-01] MEDS: CLOPIDOGREL BISULFATE 75 MG TAB PO SCH (08:01)
[2016-11-01 13:47] VITALS: BP 160/92; PULSE 85; O2SAT 96
[2016-11-01 14:48] VITALS: BP 132/81; PULSE 71; TEMP 36.9; O2SAT 97
--- NOTE | 2016-11-01 20:16 | Progress Note ---
Subjective Date of Service: Nov 01, 2016. Subjective Pt evaluation today including: conversation w/ patient, physical exam, chart review, lab review, review of inpatient medication list Review of Systems Constitutional: No see HPI, No fever, No chills, No sweats, No weight loss, No weakness, No fatigue, No problem reported Eyes: No see HPI, No worsening of vision, No eye pain, No redness, No discharge , No diplopia, No problem reported ENT: No see HPI, No hearing loss, No unusual epistaxis, No nasal symptoms, No sore throat, No tinnitus, No dental problems, No trouble swallowing, No problem reported Respiratory: No see HPI, No cough, No sputum, No wheezing, No shortness of breath, No dyspnea on exertion, No dyspnea at rest, No hemoptysis, No problem reported Cardiac: No see HPI, No chest pain, No orthopnea, No PND, No edema, No claudication, No palpitations, No problem reported Abdomen: + pain, No see HPI, No nausea, No vomiting, No diarrhea, No constipation, No GI bleeding, No problem reported Musculoskeletal: No see HPI, No joint pain, No muscle pain, No swelling, No calf pain, No problem reported Neurologic: No see HPI, No memory loss, No paralysis, No weakness, No numbness/ tingling, No vertigo, No balance problems, No problem reported Psychiatric: No see HPI, No depression symptoms, No anhedonism, No anxiety, No insomnia, No substance abuse, No problem reported Heme: No see HPI, No abnormal bleeding/bruising, No clotting problems, No swollen lymph nodes, No night sweats, No problem reported Endo: No see HPI, No fatigue, No excessive thirst, No excessive urination, No problem reported Skin: No see HPI, No rash, No itch, No new/changing skin lesions, No color change, No bleeding, No problem reported aphasia but was able to answer simple questions Objective Vital Signs Date Time Temp Pulse Resp B/P (MAP) Pulse Ox O2 Delivery O2 Flow Rate FiO2 11/01/16 16:00 Room Air 11/01/16 14:48 36.9 71 16 132/81 (98) 97 Room Air 11/01/16 13:47 85 96 11/01/16 07:59 36.7 76 18 139/90 (106) 100 Room Air 10/31/16 23:47 36.5 84 18 128/82 (97) 96 Room Air Physical Exam General Appearance: WD/WN, no apparent distress Eyes: normal inspection, PERRL ENT: normal ENT inspection, hearing grossly normal Neck: supple Respiratory/Chest: chest non-tender, lungs clear, normal breath sounds, no respiratory distress Cardiovascular: regular rate, rhythm, no edema, no gallop, no JVD, no murmur Abdomen: normal bowel sounds, soft, + tenderness Extremities: non-tender, no pedal edema 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 also had smelly vaginal discharge failed nystatin, constipation and abdominal pain. Progressive weakness: continue PT/OT consider correction placement Vaginitis , possible bacterial or resistant fungal fluconazole 150mg po Q 3 days X 3 doses flagyl 500mg po BID x 7 days Continue Nystatin powder BID Constipation; bisacodylt sup, miralax, sennakot h/o CVA w/ residual right-sided paralysis and asphasia: Continue Plavix 75 mg daily T2DM: continue sliding insulin scale Tobacco abuse- smoke 1-1.5 ppd: Smoking cessation counselling Chronic knee pain: [place] q6 PRN for management GERD: Zantac 150 mg BID DVT prophylaxis: Lovenox SQ [facility] discharge [facility]
[2016-11-01] MEDS: METRONIDAZOLE 500 MG TAB PO SCH (21:15)
[2016-11-01] MEDS: FLUCONAZOLE 50 MG TAB PO SCH (21:15)
[2016-11-01 23:41] VITALS: BP 99/64; PULSE 75; TEMP 36.6; O2SAT 98
[2016-11-02] MEDS: ACETAMINOPHEN 325 MG TAB PO PRN ×2 (00:13→09:16)
[2016-11-02] MEDS: HYDROCODONE/ACETAMOPHEN 5/325MG TAB PO PRN (05:18)
[2016-11-02 07:46] LABS: HEMATOCRIT 41.5 % (37-47); MEAN CELL VOLUME 104.5 fL (80-100); MEAN CORPUSCULAR HEMOGLOBIN 35.5 pg (25-34); MEAN PLATELET VOLUME 9.7 fL (7.4-10.4); PLATELET COUNT 333 K/uL (130-400); RED BLOOD COUNT 3.97 M/uL (4.2-5.4); WHITE BLOOD COUNT 5.41 K/uL (4.8-10.8)
[2016-11-02 08:09] VITALS: BP 117/80; PULSE 69; TEMP 36.5; O2SAT 96
[2016-11-02 08:22] LABS: ALB/GLOB RATIO 0.7 (0.9-2); BUN/CREATININE RATIO 15.6 (10-20); CALCIUM 9.1 mg/dl (8.5-10.1); CREATININE 0.57 mg/dl (0.60-1.20); MAGNESIUM 1.9 mg/dl (1.8-2.4)
[2016-11-02 08:23] LABS: POTASSIUM 3.4 mmol/L (3.5-5.1)
[2016-11-02] MEDS: INSULIN ASPART 100 UNITS/ML 3 ML PEN SC SCH ×2 (09:00→12:41)
[2016-11-02] MEDS: BOOST GLUCOSE CONTROL PO SCH ×2 (09:22→11:26)
[2016-11-02] MEDS: CLOPIDOGREL BISULFATE 75 MG TAB PO SCH (09:22)
[2016-11-02] MEDS: NYSTATIN POWDER 15GM BTL EXT SCH (09:22)
[2016-11-02] MEDS: METRONIDAZOLE 500 MG TAB PO SCH (09:23)
[2016-11-02] MEDS: FLUCONAZOLE 50 MG TAB PO SCH (09:23)
[2016-11-02] MEDS: ENOXAPARIN 40 MG/0.4 ML SYR SQ SCH (09:23)
[2016-11-02 09:37] LABS: CHOLESTEROL/HDL RATIO 5.7
[2016-11-02 09:38] LABS: ESTIMATED AVERAGE GLUCOSE 114 mg/dl; HA1C FLAG Normal (Normal)
[2016-11-02] MEDS ORDERED: AZITHROMYCIN 250 MG TAB PO STA (09:44)
[2016-11-02] MEDS ORDERED: CEFTRIAXONE SOD 350MG/ML 1 GM VIAL IM STA (09:44)
[2016-11-02] MEDS ORDERED: MCTP EXT (10:39)
[2016-11-02] MEDS ORDERED: GLIP5TAB11 PO (10:39)
[2016-11-02] MEDS ORDERED: MRLP17X PO (10:39)
[2016-11-02] MEDS ORDERED: MTR500 PO (10:39)
[2016-11-02] MEDS ORDERED: ACET-1047 PO (10:39)
[2016-11-02] MEDS ORDERED: METF500T PO (10:39)
[2016-11-02] MEDS ORDERED: DFL50 PO (10:39)
[2016-11-02 11:04] LABS: BASO % 0.7 %; BASO ABS # 0.04 K/uL (0-0.2); COMPLETE YES; EOS % 4.6 %; IG% 0.2 %; LYMPH % 52.1 %; LYMPH ABS # 2.82 K/uL (1.2-3.4); MONO % 7.2 %; NEUT % 35.2 %
[2016-11-02] MEDS ORDERED: FOLI1TAB7 PO (11:14)
[2016-11-02] MEDS ORDERED: ATOR-22 PO (11:14)
[2016-11-02] MEDS ORDERED: SENN-65 PO (11:14)
[2016-11-02] MEDS ORDERED: CEFTRIAXONE SOD IM 500 MG in SYRINGE 0 ML IM SCH (11:30)
[2016-11-02 13:25] VITALS: BP 117/80; PULSE 69; TEMP 36.5; O2SAT 96
--- NOTE | 2016-11-02 21:46 | Discharge Summary ---
Discharge Summary Date of Service Nov 02, 2016. Discharge Summary Admission Date: Nov 01, 2016 at 21:27 Discharge Date: Nov 02, 2016 [facility] Principal Diagnosis: severe vaginitis Problems/Secondary Diagnoses: History of CVA, diabetes mellitus currently controlled on glimepiride with hemoglobin A1c less than 6, dyslipidemia, constipation Immunizations: Have You Had Influenza Vaccine: No History of Tetanus Vaccine?: UTD History of Pneumococcal: No History of Hepatitis B Vaccine: Unknown Medication Reconciliation New Medications: Atorvastatin (Lipitor) 20 Mg Tab 1 TAB PO DAILY for 30 Days, #30 TAB 5 Refills Folic Acid (Folvite) 1 Mg Tab 1 TAB PO DAILY for 90 Days, #90 TAB 1 Refill Senna/Docusate Sod (Senokot S) 1 Tab Tab 1 TAB PO BID for 30 Days, #60 TAB Acetaminophen (Mapap) 325 Mg Tab 500 MG PO Q6H PRN for Pain or Fever, #30 TAB Fluconazole (Fluconazole) 50 Mg Tab 150 MG PO DIRECTED for 2 Days, #2 TAB every 3 days starting 11/04 Metronidazole (Metronidazole) 500 Mg Tab 500 MG PO BID for 7 Days, #14 TAB Miconazole Nitrate (Desenex Shake Powder) 43 Appln/43 Gm Powd 1 APPLN EXT BID PRN for Affected Skin Folds for 7 Days, #60 GM Polyethylene (Miralax) 17 Gm Pow 17 GM PO DAILY PRN for Constipation for 30 Days, #30 PKT Continued Medications: Clopidogrel (Plavix) 75 Mg Tab 75 MG PO DAILY Glimepiride (Glimepiride) 2 Mg Tab 2 MG PO DAILY Ranitidine (Zantac) 150 Mg Tab 150 MG PO Q12 PRN for HEARTBURN Discontinued Medications: Acetaminophen (Tylenol) 500 Mg Tab 1500 MG PO DAILY PRN for Pain Discharge Exam Review of Systems: Constitutional: No fever, No chills, No sweats, No weight loss, No weakness , No fatigue, No problem reported Eyes: No worsening of vision, No eye pain, No redness, No discharge, No diplopia, No problem reported ENT: No hearing loss, No unusual epistaxis, No nasal symptoms, No sore throat, No tinnitus, No dental problems, No trouble swallowing, No problem reported Respiratory: No cough, No sputum, No wheezing, No shortness of breath, No dyspnea on exertion, No dyspnea at rest, No hemoptysis, No problem reported Cardiovascular: No chest pain, No orthopnea, No PND, No edema, No claudication, No palpitations, No problem reported Abdomen: No pain, No nausea, No vomiting, No diarrhea, No constipation, No GI bleeding, No problem reported Musculoskeletal: No joint pain, No muscle pain, No swelling, No calf pain, No problem reported Neurologic: No memory loss, No paralysis, No weakness, No numbness/tingling , No vertigo, No balance problems, No problem reported Psychiatric: No depression symptoms, No anhedonism, No anxiety, No insomnia , No substance abuse, No problem reported Endocrine: No fatigue, No excessive thirst, No excessive urination, No problem reported Hematologic / Lymphatic: No abnormal bleeding/bruising, No clotting problems , No swollen lymph nodes, No night sweats, No problem reported Integumentary: No rash, No itch, No new/changing skin lesions, No color change, No bleeding, No problem reported Physical Exam: General Appearance: WD/WN, no apparent distress Eyes: normal inspection, EOMI ENT: normal ENT inspection, hearing grossly normal Neck: supple Respiratory/Chest: chest non-tender, lungs clear, normal breath sounds, no respiratory distress, no accessory muscle use Cardiovascular: regular rate, rhythm, no edema, no gallop, no JVD, no murmur , normal peripheral pulses Abdomen / GI: normal bowel sounds, non tender, soft, no organomegaly, no pulsatile mass, normal rectal exam Extremities: normal inspection, no calf tenderness, normal capillary refill , no pedal edema Neurologic/Psychiatric: + pertinent finding (moves all extremities but does have aphasia and lower extremity weakness as a baseline since cva) Skin: normal color, warm/dry, no rash Hospital Course 51 y/o female, with 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 also had smelly vaginal discharge failed nystatin, constipation and abdominal pain. for her Progressive weakness: She was seen by PT/OT There recommended [facility] placement For her severe Vaginitis , she failed to become a statin, possible bacterial or resistant fungal or sexually transmitted diseases, due to her aphasia obtaining history is very challenging She was given fluconazole 150mg po Q 3 days X 3 doses to cover any resistant fungal vaginitis Also was given flagyl 500mg po BID x 7 days for bacterial vaginosis and trichomonas Continued Nystatin powder BID GC/Chlamydia NAAT was sent, empirically she received ceftriaxone IM and 1 dose of azithromycin to cover both Currently appears stable for discharge shelter facility discharge Total Time Spent: Greater than 30 minutes This includes examination of the patient, discharge planning, medication reconciliation, and communication with other providers. Discharge Instructions Please refer to the electronic Patient Visit Report (Discharge Instructions) for additional information.
[2016-11-04 00:34] LABS: CHLAMYDIA TRACH RNA*** NOT DETECTED (NOT DETECTED); GC (NEIS GONORRHOEAE)RNA** NOT DETECTED (NOT DETECTED)
== END 2016-11-02 14:25 | DRG 758 ==
LOC: EDBD 14:24 → C.EDC 14:30 → C.MS2W 18:36 → ENRESERV 19:29 → OBSVTOIN 11-01 21:27
PROVIDERS: ADMIT Family Medicine; ATTEND Internal Medicine
DX: B37.3 Candidiasis of vulva and vagina (principal); I69.351 Hemiplegia and hemiparesis following cerebral infarction affecting right dominant side; R62.7 Adult failure to thrive; I69.320 Aphasia following cerebral infarction; E11.9 Type 2 diabetes mellitus without complications; I10 Essential (primary) hypertension; K21.9 Gastro-esophageal reflux disease without esophagitis; M25.569 Pain in unspecified knee; G89.29 Other chronic pain; K59.00 Constipation, unspecified; F17.200 Nicotine dependence, unspecified, uncomplicated; Z79.02 Long term (current) use of antithrombotics/antiplatelets; Z79.899 Other long term (current) drug therapy

== ENCOUNTER 2017-07-20 12:53 | Inpatient (IN) | payer OTHER ==
[~2017-07-20] VITALS: Ht 167.6 cm; Wt 63.5 kg
[~2017-07-20 12:53] MED LIST changes: +ACET-1047 PO; +ATOR-22 PO; -CLOP1TAB15; +CLOP1TAB15 PO; +DFL50 PO; +FOLI1TAB8 PO; +GLIM2TAB2 PO; -LRT5 PO; +MCTP EXT; +MRLP17X PO; +MTR500 PO; -NCDT21X TD; +RANI150T85 PO
[2017-07-20] MEDS ORDERED: SODIUM CHLORIDE 0.9% 500ML 500 ML IV STA (13:37)
--- NOTE | 2017-07-20 13:54 | DIAGNOSTIC IMAGING REPORT ---
CHEST ONE VIEW PORTABLE CLINICAL HISTORY: Acute change in mental status COMPARISON STUDY: 10/28/2016 FINDINGS: The cardiac and mediastinal contours are normal. There is no evidence of focal pulmonary consolidation. There is no evidence of failure. No pleural effusions are visualized.[ IMPRESSION: No active disease in the chest. Electronically signed by: Néstor Arango M.D. 07/20/2017 1:53 PM Dictated Date/Time: 07/20/2017 1:53 PM
[2017-07-20 14:47] LABS: BASO % 0.7 %; BASO ABS # 0.05 K/uL (0-0.2); EOS % 4.3 %; HEMATOCRIT 44.3 % (37-47); HEMOGLOBIN 15.7 g/dL (12.0-16.0); IG# 0.01 K/uL (0.00-0.02); LYMPH % 42.7 %; LYMPH ABS # 2.99 K/uL (1.2-3.4); MEAN CELL VOLUME 95.3 fL (80-100); MEAN CORPUSCULAR HEMOGLOBIN 33.8 pg (25-34); MEAN CORPUSCULAR HGB CONC 35.4 g/dl (32-36); MEAN PLATELET VOLUME 9.5 fL (7.4-10.4); MONO % 7.1 %; NEUT % 45.1 %; NEUT ABS # 3.16 K/uL (1.4-6.5); PLATELET COUNT 318 K/uL (130-400); RED CELL DISTRIBUTION WIDTH CV 12.8 % (11.5-14.5); RED CELL DISTRIBUTION WIDTH SD 44.4 fL (36.4-46.3); WHITE BLOOD COUNT 7.01 K/uL (4.8-10.8)
[2017-07-20 14:57] LABS: PTT PATIENT 26.9 SECONDS (21.0-31.0)
[2017-07-20 15:06] LABS: ALBUMIN 2.4 gm/dl (3.4-5.0); ALKALINE PHOSPHATASE 185 U/L (45-117); ALT/SGPT 20 U/L (12-78); AST/SGOT 35 U/L (15-37); BLOOD UREA NITROGEN 6 mg/dl (7-18); CALCIUM 8.7 mg/dl (8.5-10.1); CARBON DIOXIDE 26 mmol/L (21-32); CREATININE 0.64 mg/dl (0.60-1.20); GLUCOSE 73 mg/dl (70-99); POTASSIUM 2.7 mmol/L (3.5-5.1); SODIUM 135 mmol/L (136-145); TOTAL PROTEIN 7.1 gm/dl (6.4-8.2)
[2017-07-20] MEDS ORDERED: CEFTRIAXONE SOD INJ 1 GM ADDVIAL IV STA (15:13)
[2017-07-20] MEDS ORDERED: POTASSIUM CHLORIDE 10 MEQ TABCR PO STA (15:14)
[2017-07-20] MEDS ORDERED: RANITIDINE HCL 150 MG TAB PO PRN (17:15)
[2017-07-20] MEDS ORDERED: ONDANSETRON INJ 2 MG/ML 2 ML VIAL IV PRN (17:15)
[2017-07-20] MEDS ORDERED: ACETAMINOPHEN 325 MG TAB PO PRN (17:15)
[2017-07-20] MEDS ORDERED: POLYETHYLENE (MIRALAX) 17 GM PACK PO PRN (17:15)
[2017-07-20] MEDS ORDERED: ALUMINUM/MAGNESIUM/SIMETH (MAALOX MAX) 30 ML UDC PO PRN (17:15)
[2017-07-20] MEDS ORDERED: HydrALAZINE HCL 20 MG/ML VIAL IV. PRN (17:15)
[2017-07-20] MEDS ORDERED: LORAZEPAM 2 MG/ML 1 ML VIAL IV PRN (17:30)
--- NOTE | 2017-07-20 17:34 | History and Physical ---
History & Physical Date & Time of Service: July 20, 2017 at 17:17 Chief Complaint: Weakness Primary Care Physician: Ant Sprague M.D. 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 History is limited due to no family/ friends present and patient unable to provide much. Patient states she has been feeling fatigued and generally weak for the past couple of days. She notes she has been eating very little. Per ED record, she has been eating/drinking little because she is weak and cannot make it to the bathroom. She denies any urinary symptoms. Boyfriend stated he is unable to take patient home due to her weakness. Limited ROS: Denies any significant pain, chest pain, SOB, abdominal pain, urinary symptoms. 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 T2DM tobacco abuse GERD h/o alcohol use chronic knee pain Family History No pertinent family history Social History Smoking Status: Current Every Day Smoker Alcohol Use: per records, h/o abuse- unsure of how often/much Drug Use: none Marital Status: Housing status: lives with family Occupational Status: disabled Immunizations History of Influenza Vaccine: No History of Tetanus Vaccine?: UTD History of Pneumococcal: No History of Hepatitis B Vaccine: Unknown Allergies Coded Allergies: No Known Allergies (Verified , 02/01/06) Home Medications Scheduled Atorvastatin (Lipitor), 1 TAB PO DAILY Clopidogrel (Plavix), 75 MG PO DAILY Fluconazole (Fluconazole), 150 MG PO DIRECTED Folic Acid (Folvite), 1 TAB PO DAILY Glimepiride (Glimepiride), 2 MG PO DAILY Metronidazole (Metronidazole), 500 MG PO BID Scheduled PRN Acetaminophen (Mapap), 500 MG PO Q6H PRN for Pain or Fever Miconazole Nitrate (Desenex Shake Powder), 1 APPLN EXT BID PRN for Affected Skin Folds Polyethylene (Miralax), 17 GM PO DAILY PRN for Constipation Ranitidine (Zantac), 150 MG PO Q12 PRN for HEARTBURN Physical Exam Vital Signs Date Time Temp Pulse Resp B/P (MAP) Pulse Ox O2 Delivery O2 Flow Rate FiO2 07/20/17 16:01 141/114 07/20/17 15:31 158/119 07/20/17 15:28 103 16 100 07/20/17 15:23 106 27 100 07/20/17 15:01 148/103 07/20/17 14:53 94 18 99 07/20/17 14:31 147/98 07/20/17 14:23 102 17 98 07/20/17 14:18 94 18 100 07/20/17 14:13 110 24 100 07/20/17 14:08 99 16 100 07/20/17 14:03 104 29 100 07/20/17 14:01 140/107 07/20/17 13:58 99 15 100 07/20/17 13:53 103 11 100 07/20/17 13:48 101 22 99 07/20/17 13:43 107 25 100 07/20/17 13:38 103 22 100 07/20/17 13:33 106 17 99 07/20/17 13:31 143/97 07/20/17 13:28 112 15 100 07/20/17 13:23 103 16 100 07/20/17 13:18 108 07/20/17 13:16 115/91 07/20/17 13:04 36.1 106 18 159/103 98 Room Air General Appearance: no apparent distress Head: normocephalic, atraumatic Eyes: normal inspection, PERRL ENT: hearing grossly normal Neck: supple Respiratory/Chest: lungs clear, no respiratory distress, no accessory muscle use Cardiovascular: regular rate, rhythm Abdomen/GI: normal bowel sounds, non tender, soft Back: normal inspection, no CVA tenderness Extremities/Musculoskelatal: no calf tenderness, no pedal edema Neurologic/Psych: alert, + motor weakness (R-sided, chronic) Skin: normal color, warm/dry, no rash Diagnostics Laboratory Results Results Past 24 Hours Test 07/20/17 14:00 07/20/17 14:25 Range/Units Urine Color ORANGE Urine Appearance TURBID CLEAR Urine pH 7.0 4.5-7.5 Urine Specific [place] 1.018 1.000-1.030 Urine Protein NEG NEG Urine Glucose (UA) NEG NEG Urine Ketones TRACE NEG Urine Occult Blood NEG NEG Urine Nitrite POS NEG Urine Bilirubin NEG NEG Urine Urobilinogen NEG NEG Urine Leukocyte Esterase MODERATE NEG Urine WBC (Auto) 10-30 0-5 /hpf Urine RBC (Auto) 0-4 0-4 /hpf Urine Hyaline Casts (Auto) 1-5 0-5 /lpf Urine Epithelial Cells (Auto) 0-5 0-5 /lpf Urine Bacteria (Auto) 4+ NEG White Blood Count 7.01 4.8-10.8 K/uL Red Blood Count 4.65 4.2-5.4 M/uL Hemoglobin 15.7 12.0-16.0 g/dL Hematocrit 44.3 37-47 % Mean Corpuscular Volume 95.3 80-100 fL Mean Corpuscular Hemoglobin 33.8 25-34 pg Mean Corpuscular Hemoglobin Concent 35.4 32-36 g/dl Platelet Count 318 130-400 K/uL Mean Platelet Volume 9.5 7.4-10.4 fL Neutrophils (%) (Auto) 45.1 % Lymphocytes (%) (Auto) 42.7 % Monocytes (%) (Auto) 7.1 % Eosinophils (%) (Auto) 4.3 % Basophils (%) (Auto) 0.7 % Neutrophils # (Auto) 3.16 1.4-6.5 K/uL Lymphocytes # (Auto) 2.99 1.2-3.4 K/uL Monocytes # (Auto) 0.50 0.11-0.59 K/uL Eosinophils # (Auto) 0.30 0-0.5 K/uL Basophils # (Auto) 0.05 0-0.2 K/uL RDW Standard Deviation 44.4 36.4-46.3 fL RDW Coefficient of Variation 12.8 11.5-14.5 % Immature Granulocyte % (Auto) 0.1 % Immature Granulocyte # (Auto) 0.01 0.00-0.02 K/uL Prothrombin Time 10.0 9.0-12.0 SECONDS Prothromb Time International Ratio 1.0 0.9-1.1 Activated Partial Thromboplast Time 26.9 21.0-31.0 SECONDS Partial Thromboplastin Ratio 1.0 Sodium Level 135 136-145 mmol/L Potassium Level 2.7 3.5-5.1 mmol/L Chloride Level 100 98-107 mmol/L Carbon Dioxide Level 26 21-32 mmol/L Anion Gap 9.0 3-11 mmol/L Blood Urea Nitrogen 6 7-18 mg/dl Creatinine 0.64 0.60-1.20 mg/dl Est Creatinine Clear Calc Drug Dose 97.3 ml/min Estimated GFR () 119.7 Estimated GFR (Non- 103.3 BUN/Creatinine Ratio 9.0 10-20 Random Glucose 73 70-99 mg/dl Calcium Level 8.7 8.5-10.1 mg/dl Total Bilirubin 1.2 0.2-1 mg/dl Direct Bilirubin 0.5 0-0.2 mg/dl Aspartate Amino Transf (AST/SGOT) 35 15-37 U/L Alanine Aminotransferase (ALT/SGPT) 20 12-78 U/L Alkaline Phosphatase 185 45-117 U/L Troponin I < 0.015 0-0.045 ng/ml Total Protein 7.1 6.4-8.2 gm/dl Albumin 2.4 3.4-5.0 gm/dl Microbiology Results 07/20/17 Urine Culture, Received Pending Diagnostic Radiology CHEST ONE VIEW PORTABLE CLINICAL HISTORY: Acute change in mental status COMPARISON STUDY: 10/28/2016 FINDINGS: The cardiac and mediastinal contours are normal. There is no evidence of focal pulmonary consolidation. There is no evidence of failure. No pleural effusions are visualized.[ IMPRESSION: No active disease in the chest. Electronically signed by: Néstor Arango M.D. 07/20/2017 1:53 PM Dictated Date/Time: 07/20/2017 1:53 PM The status of this report is Signed. Draft = Not yet reviewed or approved by Radiologist. Signed = Reviewed and approved by Radiologist. EKG DARCI JACOBSON ID:[id number] 20-JUL-2017 14:09:30 [facility] Normal sinus rhythm Nonspecific T wave abnormality Abnormal ECG When compared with ECG of 28-OCT-2016 15:58, No significant change was found Confirmed by BRENDA SPARROW MD ([id number]) on 07/20/2017 5:14:46 PM 25mm/s 10mm/mV 150Hz 8.0 SP2 12SL 241 [place]: 0 Referred by: Referred Self Confirmed By: MD KYARA GUTIERREZ Vent. 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: Continue Plavix 75 mg daily T2DM: - Hold Glimepiride 2 mg daily while inpatient - BSG ACHS and ISS Tobacco abuse: - Smoking cessation counselling - Nicotine patch provided Alcohol abuse- unsure of how much/how often: - Continue Folic acid - Check b12/folate - Alcohol withdrawal protocol- IV Ativan PRN Chronic knee pain: Tylenol PRN GERD: Zantac 150 mg BID DVT prophylaxis: Lovenox SQ Code status: LEVEL I, FULL- as per past records- would discuss again w/ patient once family present Dispo: From home, lives w/ authorization representative/boyfriend- PT/OT and CM consulted Resident Physician Supervision Note: I was present with Stephan FERREIRA during the history and exam. I discussed the case with the PA and agree with the findings and plan as documented in the note. Any exceptions or clarifications are listed here: 51 y/o F Hx CVA w/residual right-sided paralysis and asphasia, DM II, tobacco abuse, possible ETOH abuse, GERD w/progressive weakness/fatigue - partner states he is unable to care for her in this state apparently. UA is (+) The pt is unable to voice complaints OE AAO - dysphasia is chronic S1,2 R CTA NT, ND No CCE R hemiparalysis is chronic P: Pt will be provided with IVF and Abx as this has happened in the pat - meaning a decrease in her functional status with infection It may be that she will need placement if there is no improvement Documented By: Souleymane Jeter Resuscitation Status LEVEL I, FULL VTE Prophylaxis Will order VTE Prophylaxis: Yes
[2017-07-20] MEDS ORDERED: GLUCOSE 40% GEL 15 GM TUBE PO PRN (18:00)
[2017-07-20] MEDS ORDERED: GLUCAGON FOR INJ 1 MG VIAL IM PRN (18:00)
[2017-07-20] MEDS ORDERED: DEXTROSE 50% 50 ML SYR IV PRN (18:00)
[2017-07-20] MEDS ORDERED: GLUCOSE 10 TABS/TUBE PO PRN (18:00)
[2017-07-20 18:25] VITALS: BP 155/97; PULSE 95; TEMP 36.5; O2SAT 99
--- NOTE | 2017-07-20 18:26 | EMERGENCY ROOM VISIT NOTE ---
History Report prepared by Nick: Luan Fallon Under the Supervision of: Dr. Wayne Dias D.O. First contact with patient: 13:30 Chief Complaint: OTHER COMPLAINT Stated Complaint: WEAKNESS History of Present Illness The patient is a 51 year old female who presents to the Emergency Room with complaints of worsening weakness over the past week. Per the patient's full- time caregiver, the patient has chronic left knee pain, but it has become so bad recently that she cannot walk. The patient does not want to use a diaper, so she has been refusing food. The patient's caregiver states that it was the hardest it has ever been to give her a shower yesterday, and he needs help taking care of her. The patient had a stroke 12 years ago which has left her unable to talk, but she is able to comprehend conversation. The patient denies any headaches, chest pain, or abdominal pain. Significant other notes that she has not been eating because she does not want to go the bathroom in her diaper. He thinks that this is the reason why she is so weak. Source of History: patient, caregiver Onset: Over past week Position: other (global) Symptom Intensity: refusing food and drink because does not want to use diaper Quality: other (weakness) Timing: worsening Associated Symptoms: + fatigue, No headache, No chest pain, No abdominal pain Note: Associated symptoms: Left knee pain worsening. Review of Systems See HPI for pertinent positives & negatives. A total of 10 systems reviewed and were otherwise negative. Past Medical & Surgical Medical Problems: (1) ALCOHOL ABUSE-UNSPEC (2) CEREBRAL ART OCCLUSION NOS W CEREBRAL INFARCTION (3) DEFICIENCY ANEMIA NOS (4) DIAB RONNY WO COMPL, TYPE II OR UNSPEC TYPE, NOT UNCNTRLD (5) Failure to thrive (6) HYPERTENSION NOS (7) PERSONAL HX OF TIA,& CEREBRAL INFARCTION W/OUT RES DEFICITS (8) UNSPEC HEMIPLEGIA & HEMIPARESIS UNSPEC SIDE (9) UTI (urinary tract infection) (10) Vaginitis (11) Weakness Family History No pertinent family history Social History Smoking Status: Unknown if Ever Smoked Alcohol Use: heavy Drug Use: none Marital Status: Housing Status: lives with family Occupation Status: disabled Current/Historical Medications Scheduled Atorvastatin (Lipitor), 1 TAB PO DAILY Clopidogrel (Plavix), 75 MG PO DAILY Fluconazole (Fluconazole), 150 MG PO DIRECTED Folic Acid (Folvite), 1 TAB PO DAILY Glimepiride (Glimepiride), 2 MG PO DAILY Metronidazole (Metronidazole), 500 MG PO BID Scheduled PRN Acetaminophen (Mapap), 500 MG PO Q6H PRN for Pain or Fever Miconazole Nitrate (Desenex Shake Powder), 1 APPLN EXT BID PRN for Affected Skin Folds Polyethylene (Miralax), 17 GM PO DAILY PRN for Constipation Ranitidine (Zantac), 150 MG PO Q12 PRN for HEARTBURN Allergies Coded Allergies: No Known Allergies (Verified , 02/01/06) Physical Exam Vital Signs Date Time Temp Pulse Resp B/P (MAP) Pulse Ox O2 Delivery O2 Flow Rate FiO2 07/20/17 17:56 36.1 89 18 130/86 100 07/20/17 17:31 89 130/86 100 07/20/17 17:01 149/113 07/20/17 16:30 90 18 150/98 100 07/20/17 16:01 141/114 07/20/17 15:31 158/119 07/20/17 15:28 103 16 100 07/20/17 15:23 106 27 100 07/20/17 15:01 148/103 07/20/17 14:53 94 18 99 07/20/17 14:31 147/98 07/20/17 14:23 102 17 98 07/20/17 14:18 94 18 100 07/20/17 14:13 110 24 100 07/20/17 14:08 99 16 100 07/20/17 14:03 104 29 100 07/20/17 14:01 140/107 07/20/17 13:58 99 15 100 07/20/17 13:53 103 11 100 07/20/17 13:48 101 22 99 07/20/17 13:43 107 25 100 07/20/17 13:38 103 22 100 07/20/17 13:33 106 17 99 07/20/17 13:31 143/97 07/20/17 13:28 112 15 100 07/20/17 13:23 103 16 100 07/20/17 13:18 108 07/20/17 13:16 115/91 07/20/17 13:04 36.1 106 18 159/103 98 Room Air Physical Exam GENERAL: Sitting up in bed, shaking head yes and no, disheveled, nontoxic. EYE EXAM: normal conjunctiva. PERRL and EOM's intact. OROPHARYNX: no exudate, no erythema, lips, buccal mucosa, and tongue normal and mucous membranes are moist NECK: supple, no nuchal rigidity, no adenopathy, non-tender LUNGS: Clear to auscultation. Normal chest wall mechanics HEART: no murmurs, S1 normal and S2 normal ABDOMEN: abdomen soft, non-tender, normo-active bowel sounds, no masses, no rebound or guarding. BACK: Back is symmetrical on inspection and there is no deformity, no midline tenderness, no CVA tenderness. SKIN: no rashes and no bruising UPPER EXTREMITIES: upper extremities are grossly normal. LOWER EXTREMITIES: Multiple old incisions over bilateral knees, no erythema or swelling. NEURO EXAM: Able to answer yes or no questions. Right upper extremity with contracture. No focal weakness in the lower extremities. Medical Decision & Procedures ER Provider Diagnostic Interpretation: X-ray results as stated below per my review and the radiologist's interpretation : CHEST ONE VIEW PORTABLE CLINICAL HISTORY: Acute change in mental status COMPARISON STUDY: 10/28/2016 FINDINGS: The cardiac and mediastinal contours are normal. There is no evidence of focal pulmonary consolidation. There is no evidence of failure. No pleural effusions are visualized.[ IMPRESSION: No active disease in the chest. Electronically signed by: Néstor Arango M.D. 07/20/2017 1:53 PM Dictated Date/Time: 07/20/2017 1:53 PM Laboratory Results 07/20/17 14:25 Red Blood Count 4.65, Mean Corpuscular Volume 95.3, Mean Corpuscular Hemoglobin 33.8, Mean Corpuscular Hemoglobin Concent 35.4, Mean Platelet Volume 9.5, Neutrophils (%) (Auto) 45.1, Lymphocytes (%) (Auto) 42.7, Monocytes (%) (Auto) 7.1, Eosinophils (%) (Auto) 4.3, Basophils (%) (Auto) 0.7, Neutrophils # (Auto) 3.16, Lymphocytes # (Auto) 2.99, Monocytes # (Auto) 0.50, Eosinophils # (Auto) 0.30, Basophils # (Auto) 0.05 07/20/17 14:25 Test 07/20/17 14:00 07/20/17 14:25 Urine Color ORANGE Urine Appearance TURBID (CLEAR) Urine pH 7.0 (4.5-7.5) Urine Specific [place] 1.018 (1.000-1.030) Urine Protein NEG (NEG) Urine Glucose (UA) NEG (NEG) Urine Ketones TRACE (NEG) Urine Occult Blood NEG (NEG) Urine Nitrite POS (NEG) Urine Bilirubin NEG (NEG) Urine Urobilinogen NEG (NEG) Urine Leukocyte Esterase MODERATE (NEG) Urine WBC (Auto) 10-30 /hpf (0-5) Urine RBC (Auto) 0-4 /hpf (0-4) Urine Hyaline Casts (Auto) 1-5 /lpf (0-5) Urine Epithelial Cells (Auto) 0-5 /lpf (0-5) Urine Bacteria (Auto) 4+ (NEG) White Blood Count 7.01 K/uL (4.8-10.8) Red Blood Count 4.65 M/uL (4.2-5.4) Hemoglobin 15.7 g/dL (12.0-16.0) Hematocrit 44.3 % (37-47) Mean Corpuscular Volume 95.3 fL (80-100) Mean Corpuscular Hemoglobin 33.8 pg (25-34) Mean Corpuscular Hemoglobin Concent 35.4 g/dl (32-36) Platelet Count 318 K/uL (130-400) Mean Platelet Volume 9.5 fL (7.4-10.4) Neutrophils (%) (Auto) 45.1 % Lymphocytes (%) (Auto) 42.7 % Monocytes (%) (Auto) 7.1 % Eosinophils (%) (Auto) 4.3 % Basophils (%) (Auto) 0.7 % Neutrophils # (Auto) 3.16 K/uL (1.4-6.5) Lymphocytes # (Auto) 2.99 K/uL (1.2-3.4) Monocytes # (Auto) 0.50 K/uL (0.11-0.59) Eosinophils # (Auto) 0.30 K/uL (0-0.5) Basophils # (Auto) 0.05 K/uL (0-0.2) RDW Standard Deviation 44.4 fL (36.4-46.3) RDW Coefficient of Variation 12.8 % (11.5-14.5) Immature Granulocyte % (Auto) 0.1 % Immature Granulocyte # (Auto) 0.01 K/uL (0.00-0.02) Prothrombin Time 10.0 SECONDS (9.0-12.0) Prothromb Time International Ratio 1.0 (0.9-1.1) Activated Partial Thromboplast Time 26.9 SECONDS (21.0-31.0) Partial Thromboplastin Ratio 1.0 Anion Gap 9.0 mmol/L (3-11) Est Creatinine Clear Calc Drug Dose 97.3 ml/min Estimated GFR () 119.7 Estimated GFR (Non- 103.3 BUN/Creatinine Ratio 9.0 (10-20) Calcium Level 8.7 mg/dl (8.5-10.1) Total Bilirubin 1.2 mg/dl (0.2-1) Direct Bilirubin 0.5 mg/dl (0-0.2) Aspartate Amino Transf (AST/SGOT) 35 U/L (15-37) Alanine Aminotransferase (ALT/SGPT) 20 U/L (12-78) Alkaline Phosphatase 185 U/L (45-117) Troponin I < 0.015 ng/ml (0-0.045) Total Protein 7.1 gm/dl (6.4-8.2) Albumin 2.4 gm/dl (3.4-5.0) Laboratory results per my review. Medications Administered Medications (Trade) Dose Ordered Sig/[place] Route Start Time Stop Time Status Last Admin Dose Admin Sodium Chloride 500 ml @ 999 mls/hr Q31M STAT IV 07/20/17 13:37 07/20/17 14:07 DC 07/20/17 13:37 999 MLS/HR Ceftriaxone Sodium (Rocephin Inj) 1 gm NOW STAT IV 07/20/17 15:13 07/20/17 15:14 DC 07/20/17 15:33 1 GM Potassium Chloride (Klor-Con M10) 40 meq NOW STAT PO 07/20/17 15:14 07/20/17 15:15 DC 07/20/17 15:34 40 MEQ ECG Per My Interpretation Indication: weakness Rate (beats per minute): 95 Rhythm: sinus rhythm Findings: no ectopy, other (normal axis) ED Course ED COURSE: Vital signs were reviewed and showed tachycardic vitals. The patients medical record was reviewed The above diagnostic studies were performed and reviewed. ED treatments and interventions as stated above. 1331: The patient was evaluated in room B7. A complete history and physical examination was performed. 1337: NSS 500 ml @ 999 mls/hr IV. 1513: Rocephin Inj 1 gm IV. 1514: Klor-Con M10 40 meq PO. 1515: Upon reevaluation, the patient is resting. I discussed my findings with the patient and she understands and agrees with the treatment plan. Based on the patients age, coexisting illnesses, exam and lab findings the decision to treat as an inpatient was made. The patient remained stable while under my care. The patient will be evaluated for further management. 1600: I talked to Froylan, the patient's significant other. He says that he can't take care of her at home. 1633: I reviewed the patient's case with Dr. Corona BERNAL evaporator operator molasses. He will evaluate the patient for further management. Medical Decision Differential Diagnosis includes but is not limited to dehydration, stroke, anemia, hypoglycemia, hyponatremia, hypernatremia, urinary tract infection, pneumonia, bronchitis, sepsis, gastroenteritis, additional abdominal pathology, metabolic abnormalities and infections. Patient is a 51-year-old female that presents the ER with past medical history of a stroke for diffuse weakness as she is not eating or drinking. Significant other notes that he is unable to care for her at home anymore and she is too weak. CBC was unremarkable. BMP with a potassium of 2.7. LFTs bilirubin were fairly unremarkable. Troponin was negative. UA does show UTI. She was given IV Rocephin and fluids. Discussed case with internal medicine and they will observe her overnight. She was also given oral potassium Medication Reconcilliation Current Medication List: was personally reviewed by me Blood Pressure Screening Patient's blood pressure: Normal blood pressure Consults Time Called: 1630 Consulting Physician: Dr. Corona BERNAL evaporator operator molasses Returned Call: [phone] I reviewed the patient's case with Dr. Corona BERNAL evaporator operator molasses. He will evaluate the patient for further management. Impression Primary Impression: UTI (urinary tract infection) Additional Impression: Weakness Scribe Attestation The scribe's documentation has been prepared under my direction and personally reviewed by me in its entirety. I confirm that the note above accurately reflects all work, treatment, procedures, and medical decision making performed by me. Departure Information Dispostion Being Evaluated By Hospitalist Referrals Pro,Ant Odell M.D. (PCP) Patient Instructions My [facility] Problem Qualifiers Primary Impression: UTI (urinary tract infection) Urinary tract infection type: acute cystitis Hematuria presence: without hematuria Qualified Codes: N30.00 - Acute cystitis without hematuria
[2017-07-20 19:00] VITALS: BP 155/97; PULSE 95; TEMP 36.5; O2SAT 99; BMI 22.6
[2017-07-20] MEDS: NSS + 20MEQ KCL 1000ML 1,000 ML IV SCH (19:40)
[2017-07-20] MEDS: INSULIN ASPART 100 UNITS/ML 3 ML PEN SC SCH (21:00)
[2017-07-20] MEDS: ENOXAPARIN 40 MG/0.4 ML SYR SQ SCH (21:13)
[2017-07-20 23:45] VITALS: BP 118/79; PULSE 99; TEMP 36.5; O2SAT 98
[2017-07-21 06:59] VITALS: BP 111/73; PULSE 99; TEMP 36.5; O2SAT 97
[2017-07-21 07:30] LABS: CALCIUM 7.6 mg/dl (8.5-10.1); CREATININE 0.53 mg/dl (0.60-1.20); POTASSIUM 3.9 mmol/L (3.5-5.1)
--- NOTE | 2017-07-21 08:28 | Hospitalist Progress Note ---
Hospitalist Progress Note Date of Service July 21, 2017. (Lauren Turner PA-C) Subjective Pt evaluation today including: conversation w/ patient, physical exam, chart review, lab review, review of studies Pain: None PO Intake: Fair Voiding: no voiding problems The patient was seen and examined this morning. Pt has difficulty with ROS and explanations due to expressive aphasia. Overall no acute complaints, doing well, no pain. Repeats herself and continues to say " you know, yea" repetitively. She can say small sentences with boyfriend present. RE-Visted at 13:30: Boyfriend, Froylan, present at bedside. They are looking for short term rehab to have her physical strength increased. Pt notes increased weakness over the past few weeks. He notes she is very noncompliant with leg brace in the past for foot drop, and does not do therapy regimen on her own. They also think that she has decreased strength due to poor appetite. Pt has lost 15lbs since her last admission here October 2016. They have recently tried ensure supplementation at home but pt does not like them. She is agreeable to trial of boost. Pt also chronically has L sided knee pain from osteoarthritis, and since her stroke affecting the R side, she is unable to walk at all. Normally she is able to participated in ADLs such as dressing, feeding, pivot transfer however was not able to in the past 2 days. ROS: As above. (Lauren Turner PA-C) Objective Vital Signs Date Time Temp Pulse Resp B/P (MAP) Pulse Ox O2 Delivery O2 Flow Rate FiO2 07/21/17 06:59 36.5 99 20 111/73 (86) 97 Room Air 07/21/17 00:00 Room Air 07/20/17 23:45 36.5 99 20 118/79 (92) 98 Room Air 07/20/17 19:00 36.5 95 20 155/97 99 Room Air 07/20/17 18:25 36.5 95 20 155/97 (116) 99 Room Air 07/20/17 17:56 36.1 89 18 130/86 100 07/20/17 17:31 89 130/86 100 07/20/17 17:01 149/113 07/20/17 16:30 90 18 150/98 100 07/20/17 16:01 141/114 07/20/17 15:31 158/119 07/20/17 15:28 103 16 100 07/20/17 15:23 106 27 100 07/20/17 15:01 148/103 07/20/17 14:53 94 18 99 07/20/17 14:31 147/98 07/20/17 14:23 102 17 98 07/20/17 14:18 94 18 100 07/20/17 14:13 110 24 100 07/20/17 14:08 99 16 100 07/20/17 14:03 104 29 100 07/20/17 14:01 140/107 07/20/17 13:58 99 15 100 07/20/17 13:53 103 11 100 07/20/17 13:48 101 22 99 07/20/17 13:43 107 25 100 07/20/17 13:38 103 22 100 07/20/17 13:33 106 17 99 07/20/17 13:31 143/97 07/20/17 13:28 112 15 100 07/20/17 13:23 103 16 100 07/20/17 13:18 108 07/20/17 13:16 115/91 07/20/17 13:04 36.1 106 18 159/103 98 Room Air (Lauren Turner PA-C) Physical Exam General Appearance: WD/WN, no apparent distress, + pertinent finding (smells of smoke) Eyes: PERRL, EOMI ENT: hearing grossly normal, + pertinent finding (poor dentition, multiple missing teeth, pharynx normal, MMM) Neck: supple, no JVD Respiratory/Chest: lungs clear, no respiratory distress, no accessory muscle use Cardiovascular: regular rate, rhythm, no murmur Abdomen: normal bowel sounds, non tender, soft Extremities: non-tender, no pedal edema, no calf tenderness, + pertinent finding (L knee edema, + surgical scar present. + excoriation over inner thighs and buttocks) Neurologic/Psychiatric: alert, normal mood/affect, oriented x 3, + pertinent finding (R sided motor weakness) Skin: normal color, warm/dry, + rash (inner thighs bilaterally) (Lauren Turner PA-C) Laboratory Results Last 24 Hours Test 07/20/17 14:00 07/20/17 14:25 07/20/17 20:56 07/21/17 06:40 Urine Color ORANGE Urine Appearance TURBID Urine pH 7.0 Urine Specific [place] 1.018 Urine Protein NEG Urine Glucose (UA) NEG Urine Ketones TRACE Urine Occult Blood NEG Urine Nitrite POS Urine Bilirubin NEG Urine Urobilinogen NEG Urine Leukocyte Esterase MODERATE Urine WBC (Auto) 10-30 /hpf Urine RBC (Auto) 0-4 /hpf Urine Hyaline Casts (Auto) 1-5 /lpf Urine Epithelial Cells (Auto) 0-5 /lpf Urine Bacteria (Auto) 4+ White Blood Count 7.01 K/uL Red Blood Count 4.65 M/uL Hemoglobin 15.7 g/dL Hematocrit 44.3 % Mean Corpuscular Volume 95.3 fL Mean Corpuscular Hemoglobin 33.8 pg Mean Corpuscular Hemoglobin Concent 35.4 g/dl Platelet Count 318 K/uL Mean Platelet Volume 9.5 fL Neutrophils (%) (Auto) 45.1 % Lymphocytes (%) (Auto) 42.7 % Monocytes (%) (Auto) 7.1 % Eosinophils (%) (Auto) 4.3 % Basophils (%) (Auto) 0.7 % Neutrophils # (Auto) 3.16 K/uL Lymphocytes # (Auto) 2.99 K/uL Monocytes # (Auto) 0.50 K/uL Eosinophils # (Auto) 0.30 K/uL Basophils # (Auto) 0.05 K/uL RDW Standard Deviation 44.4 fL RDW Coefficient of Variation 12.8 % Immature Granulocyte % (Auto) 0.1 % Immature Granulocyte # (Auto) 0.01 K/uL Prothrombin Time 10.0 SECONDS Prothromb Time International Ratio 1.0 Activated Partial Thromboplast Time 26.9 SECONDS Partial Thromboplastin Ratio 1.0 Sodium Level 135 mmol/L 141 mmol/L Potassium Level 2.7 mmol/L 3.9 mmol/L Chloride Level 100 mmol/L 111 mmol/L Carbon Dioxide Level 26 mmol/L 23 mmol/L Anion Gap 9.0 mmol/L 7.0 mmol/L Blood Urea Nitrogen 6 mg/dl 5 mg/dl Creatinine 0.64 mg/dl 0.53 mg/dl Est Creatinine Clear Calc Drug Dose 97.3 ml/min 117.5 ml/min Estimated GFR () 119.7 127.4 Estimated GFR (Non- 103.3 109.9 BUN/Creatinine Ratio 9.0 10.0 Random Glucose 73 mg/dl 68 mg/dl Calcium Level 8.7 mg/dl 7.6 mg/dl Total Bilirubin 1.2 mg/dl Direct Bilirubin 0.5 mg/dl Aspartate Amino Transf (AST/SGOT) 35 U/L Alanine Aminotransferase (ALT/SGPT) 20 U/L Alkaline Phosphatase 185 U/L Troponin I < 0.015 ng/ml Total Protein 7.1 gm/dl Albumin 2.4 gm/dl Bedside Glucose 91 mg/dl Vitamin B12 Level 681 pg/mL Folate 10.73 ng/mL Test 07/21/17 07:34 Bedside Glucose 76 mg/dl (Lauren Turner, ROQUE) Assessment and Plan Patient is a pleasant 51 y/o female, with 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 UTI/ Metabolic encephalopathy Generalized weakness/fatigue - IV Rocephin pending UCx - will follow - Gentle IVF hydration - PT/OT consulted - CM to assist with discharge planning regarding possible placement - family interested in short term PT/OT placement with goal to return home. Hypokalemia: resolved - K+ 3.9 this morning - IVF + KCL supplement provided - Follow PRP and replace PRN HTN: IV Hydralazine PRN h/o CVA w/ residual right-sided paralysis and expressive asphasia: Spastic RLE Ambulatory dysfunction - Continue Plavix 75 mg daily - PT/OT evals - Pt is requesting rehab T2DM: - Hold Glimepiride 2 mg daily while inpatient - Check A1C with am labs - BSG ACHS and ISS - Start boost glucose control Severe Protein Malnutrition Failure to thrive? - Weight loss of 15 lbs in past 8 months. Albumin 2.4 upon admission - B12 and folate wnl - Will start boost supplementation as above Tobacco abuse: - Smoking cessation counselling - patient has smoked 1.5 ppd for > 20 years. Pts significant other smells strongly of smoke at bedside. - Nicotine patch dose increased to 21mcg Alcohol abuse/ dependence - Pt drinks 1/4 to 1/2 a 5th of peppermint schnapps daily when available to her. Per boyfriend, her last drink was 10 days ago. She has had many years of alcohol abuse but has been unresponsive to counseling or treatment as an outpatient. - Folic acid, b12 WNL : continue supplementation with history - Withdrawal protocol initially ordered, unlikely that she will need it if hx is correct. Monitor. - Appears alk phos and bilirubin initially elevated - follow LFTs tomorrow morning. INR stable at 1.0. Likely has a component of liver disease. Chronic L knee pain: - Multiple surgeries in the past, ~ 5. Notes worse pending weather being raining , like it has been for a week. - Will scheduled Tylenol 650 mg Q4wa - would avoid narcotics at this time unless severe pain. GERD: Zantac 150 mg BID DVT prophylaxis: Lovenox SQ Code status: LEVEL I, FULL- as per past records- would discuss again w/ patient once family present Dispo: From home, lives w/ block hand/boyfriend, PT/OT for rehab, and CM consulted (Lauren Turner, PADago) PA Physician Supervision Note: I interviewed and examined the patient. Discussed with Lauren Turner PAC and agree with findings and plan as documented in the note. Any exceptions or clarifications are listed here: None This patient is awake alert she does have limited speech given her previous CVA and right-sided hemiparesis. She is here for consideration of acute or subacute rehab as she recently has had a decline in her performance. She is supported as an outpatient by her boyfriend of many years she does have a problem with alcohol use daily but has quit over 10 days ago Temperature 36 5 pulse 99 respiration rate 20 BP 111/93 O2 sat 97% she is awake alert and alert she responds appropriately to questioning her heart is regular without murmurs her lungs are clear Patient had initially presented with clinical dehydration and diminished interaction however she is return of her baseline after hydration will now attempt to have her place for rehabilitation we are currently treating urinary tract infection present on admission but formal sensitivities have not returned Documented By: Chris Cole (Chris Cole M.D.)
[2017-07-21] MEDS: INSULIN ASPART 100 UNITS/ML 3 ML PEN SC SCH ×4 (08:29→21:00)
[2017-07-21] MEDS: NSS + 20MEQ KCL 1000ML 1,000 ML IV SCH ×2 (08:30→20:25)
[2017-07-21] MEDS: ATORVASTATIN 20 MG TAB PO SCH (08:31)
[2017-07-21] MEDS: CLOPIDOGREL BISULFATE 75 MG TAB PO SCH (08:31)
[2017-07-21] MEDS ORDERED: NICOTINE 7 MG/24 HR TDSY TD SCH (09:00)
[2017-07-21 14:01] VITALS: Ht 167.6 cm; Wt 63.5 kg
[2017-07-21 14:32] VITALS: BP 117/90; PULSE 91; TEMP 36.8; O2SAT 100
[2017-07-21] MEDS: ACETAMINOPHEN 325 MG TAB PO SCH ×2 (14:54→20:24)
[2017-07-21] MEDS ORDERED: CEFTRIAXONE SOD INJ 1 GM in DEXTROSE 5% ADD-VANTAGE 50ML 50 ML IV SCH (16:00)
[2017-07-21] MEDS: BOOST GLUCOSE CONTROL PO SCH (17:00)
[2017-07-21] MEDS ORDERED: BOOST GLUCOSE CONTROL PO SCH (21:00)
[2017-07-21] MEDS: NYSTATIN POWDER 15GM BTL EXT SCH (22:01)
[2017-07-21] MEDS: ENOXAPARIN 40 MG/0.4 ML SYR SQ SCH (22:01)
[2017-07-22 01:26] VITALS: BP 144/96; PULSE 86; TEMP 36.6; O2SAT 97
[2017-07-22 06:11] LABS: HEMATOCRIT 38.1 % (37-47); HEMOGLOBIN 12.8 g/dL (12.0-16.0); MEAN CELL VOLUME 99.2 fL (80-100); MEAN CORPUSCULAR HEMOGLOBIN 33.3 pg (25-34); MEAN CORPUSCULAR HGB CONC 33.6 g/dl (32-36); MEAN PLATELET VOLUME 9.5 fL (7.4-10.4); PLATELET COUNT 267 K/uL (130-400); RED CELL DISTRIBUTION WIDTH CV 13.1 % (11.5-14.5); RED CELL DISTRIBUTION WIDTH SD 47.4 fL (36.4-46.3); WHITE BLOOD COUNT 4.37 K/uL (4.8-10.8)
[2017-07-22 06:34] LABS: ALBUMIN 1.7 gm/dl (3.4-5.0); CALCIUM 7.7 mg/dl (8.5-10.1); CREATININE 0.6 mg/dl (0.60-1.20); POTASSIUM 4.6 mmol/L (3.5-5.1); TOTAL PROTEIN 5.4 gm/dl (6.4-8.2)
[2017-07-22 07:04] VITALS: BP 142/98; PULSE 86; TEMP 36.6; O2SAT 99
--- NOTE | 2017-07-22 08:27 | Progress Note ---
Subjective Date of Service: July 22, 2017. Subjective pt is looking better each day, she is denied stay by insurance not clear what that means to plans for rehab? Pt has some increased knee pain not relieved by tylenol. Review of Systems Constitutional: + weakness, No fever, No chills, No fatigue Respiratory: No cough, No shortness of breath Cardiac: No chest pain, No orthopnea, No edema Abdomen: No pain, No nausea Neurologic: + memory loss, + paralysis, + weakness, + balance problems Psychiatric: No depression symptoms, No anhedonism Objective Vital Signs Date Time Temp Pulse Resp B/P (MAP) Pulse Ox O2 Delivery O2 Flow Rate FiO2 07/22/17 07:04 36.6 86 18 142/98 (113) 99 Room Air 07/22/17 01:26 36.6 86 20 144/96 (112) 97 Room Air 07/22/17 00:45 Room Air 07/21/17 16:00 Room Air 07/21/17 14:32 36.8 91 20 117/90 (99) 100 07/21/17 09:07 Room Air Physical Exam General Appearance: + mild distress, + thin Eyes: normal inspection, sclerae normal Respiratory/Chest: chest non-tender, lungs clear, normal breath sounds Cardiovascular: regular rate, rhythm, no murmur Abdomen: normal bowel sounds, non tender, soft Extremities: no pedal edema, no calf tenderness Neurologic/Psychiatric: alert, oriented x 3, + pertinent finding (right sided weakness and some speech issues that is her baseline) Laboratory Results Last 24 Hours Test 07/21/17 11:25 07/21/17 16:39 07/21/17 20:19 07/22/17 05:35 Bedside Glucose 100 mg/dl 90 mg/dl 87 mg/dl White Blood Count 4.37 K/uL Red Blood Count 3.84 M/uL Hemoglobin 12.8 g/dL Hematocrit 38.1 % Mean Corpuscular Volume 99.2 fL Mean Corpuscular Hemoglobin 33.3 pg Mean Corpuscular Hemoglobin Concent 33.6 g/dl RDW Standard Deviation 47.4 fL RDW Coefficient of Variation 13.1 % Platelet Count 267 K/uL Mean Platelet Volume 9.5 fL Sodium Level 142 mmol/L Potassium Level 4.6 mmol/L Chloride Level 114 mmol/L Carbon Dioxide Level 21 mmol/L Anion Gap 7.0 mmol/L Blood Urea Nitrogen 5 mg/dl Creatinine 0.60 mg/dl Est Creatinine Clear Calc Drug Dose 103.8 ml/min Estimated GFR () 122.3 Estimated GFR (Non- 105.5 BUN/Creatinine Ratio 7.8 Random Glucose 80 mg/dl Calcium Level 7.7 mg/dl Total Bilirubin 0.7 mg/dl Direct Bilirubin 0.3 mg/dl Aspartate Amino Transf (AST/SGOT) 34 U/L Alanine Aminotransferase (ALT/SGPT) 18 U/L Alkaline Phosphatase 126 U/L Total Protein 5.4 gm/dl Albumin 1.7 gm/dl Test 07/22/17 07:35 Bedside Glucose 82 mg/dl Assessment and Plan Patient is a pleasant 51 y/o female, with 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 UTI/ Metabolic encephalopathy, E Coli kelley sensitive - IV Rocephin transition to po cipro - PT/OT consulted - CM to assist with discharge planning regarding possible placement - family interested in short term PT/OT placement with goal to return home. Hypokalemia: resolved HTN: control secondary risk prevention h/o CVA w/ residual right-sided paralysis and expressive asphasia: Spastic RLE, Ambulatory dysfunction - Continue Plavix 75 mg daily - PT/OT evals - Pt is requesting rehab T2DM: initially held Glimepiride will restart - Check A1C with am labs - BSG ACHS and ISS - Start boost glucose control Severe Protein Malnutrition boost supplementation as above Tobacco abuse:- Smoking cessation counselling - patient has smoked 1.5 ppd for > 20 years. - Nicotine patch 21mcg Alcohol abuse/ dependence, stopped more than a week before admission, should be past withdrawal Chronic L knee pain: - Multiple surgeries in the past, scheduled Tylenol 650 mg Q4wa, adding voltaren gel to try to help GERD: Zantac 150 mg BID DVT prophylaxis: Lovenox SQ Code status: LEVEL I, FULL- Dispo: From home, lives w/ salesforce specialist/boyfriend, PT/OT for rehab, and CM consulted
[2017-07-22] MEDS: BOOST GLUCOSE CONTROL PO SCH ×2 (08:58→17:00)
[2017-07-22] MEDS: INSULIN ASPART 100 UNITS/ML 3 ML PEN SC SCH ×4 (08:58→20:50)
[2017-07-22] MEDS: ACETAMINOPHEN 325 MG TAB PO SCH ×4 (09:04→20:49)
[2017-07-22] MEDS: ATORVASTATIN 20 MG TAB PO SCH (09:04)
[2017-07-22] MEDS: THIAMINE HCL 100 MG TAB PO SCH (09:05)
[2017-07-22] MEDS: CLOPIDOGREL BISULFATE 75 MG TAB PO SCH (09:05)
[2017-07-22] MEDS: CEROVITE ADV FORMULA TAB PO SCH (09:05)
[2017-07-22] MEDS: NICOTINE 21 MG/24 HR TDSY TD SCH (09:07)
[2017-07-22] MEDS: NYSTATIN POWDER 15GM BTL EXT SCH ×2 (09:15→20:52)
[2017-07-22] MEDS: GLIMEPIRIDE 2 MG TAB PO SCH (09:52)
[2017-07-22] MEDS: FoLIC ACID TAB 400 MCG TAB PO SCH (09:52)
[2017-07-22] MEDS: CIPROFLOXACIN 500 MG TAB PO SCH ×2 (09:52→20:51)
[2017-07-22 12:57] LABS: HEMOGLOBIN A1C < 4.0 % (4.5-5.6)
[2017-07-22 14:40] VITALS: BP 160/113; PULSE 86; TEMP 36.4; O2SAT 100
[2017-07-22] MEDS: DICLOFENAC SOD 1% GEL 100 GM TUBE EXT SCH ×2 (15:56→23:33)
[2017-07-22] MEDS: CARBOHYDRATES FOR HYPOGLYCEMIA PO PRN ×4 (16:21→17:18)
[2017-07-22] MEDS: ENOXAPARIN 40 MG/0.4 ML SYR SQ SCH (20:51)
[2017-07-22 22:56] VITALS: BP 150/100; PULSE 93; TEMP 36.6; O2SAT 99
[2017-07-23] MEDS ORDERED: LOPERAMIDE HCL 2 MG CAP PO STA (00:03)
[2017-07-23 07:33] VITALS: BP 128/95; PULSE 93; TEMP 36.5; O2SAT 100
[2017-07-23] MEDS: CARBOHYDRATES FOR HYPOGLYCEMIA PO PRN (07:48)
[2017-07-23] MEDS: CEROVITE ADV FORMULA TAB PO SCH (07:49)
[2017-07-23] MEDS: CLOPIDOGREL BISULFATE 75 MG TAB PO SCH (07:49)
[2017-07-23] MEDS: FoLIC ACID TAB 400 MCG TAB PO SCH (07:49)
[2017-07-23] MEDS: CIPROFLOXACIN 500 MG TAB PO SCH ×2 (07:49→20:41)
[2017-07-23] MEDS: ATORVASTATIN 20 MG TAB PO SCH (07:49)
[2017-07-23] MEDS: THIAMINE HCL 100 MG TAB PO SCH (07:49)
[2017-07-23] MEDS: ACETAMINOPHEN 325 MG TAB PO SCH ×5 (07:50→23:20)
[2017-07-23] MEDS: GLIMEPIRIDE 2 MG TAB PO SCH (07:51)
[2017-07-23] MEDS: BOOST GLUCOSE CONTROL PO SCH ×2 (07:51→16:54)
[2017-07-23] MEDS: NICOTINE 21 MG/24 HR TDSY TD SCH (07:51)
[2017-07-23] MEDS: INSULIN ASPART 100 UNITS/ML 3 ML PEN SC SCH ×4 (08:15→20:07)
[2017-07-23] MEDS: NYSTATIN POWDER 15GM BTL EXT SCH ×2 (09:00→20:41)
[2017-07-23] MEDS: DICLOFENAC SOD 1% GEL 100 GM TUBE EXT SCH ×2 (10:00→17:50)
--- NOTE | 2017-07-23 13:00 | Progress Note ---
Subjective Date of Service: July 23, 2017. Subjective pt has no further complaints of knee pain, she is improved with voltaren, disposition continues to move toward rehab Review of Systems Constitutional: No fever, No chills, No weakness Respiratory: No cough, No sputum, No wheezing Abdomen: No pain, No nausea, No vomiting Neurologic: No memory loss, No paralysis, No weakness Psychiatric: No depression symptoms, No anhedonism, No anxiety Objective Vital Signs Date Time Temp Pulse Resp B/P (MAP) Pulse Ox O2 Delivery O2 Flow Rate FiO2 07/23/17 08:58 Room Air 07/23/17 07:33 36.5 93 16 128/95 (106) 100 Room Air 07/23/17 00:00 Room Air 07/22/17 22:56 36.6 93 16 150/100 (117) 99 Room Air 07/22/17 20:00 Room Air 07/22/17 16:00 Room Air 07/22/17 14:40 36.4 86 20 160/113 (129) 100 Physical Exam General Appearance: WD/WN, + mild distress Eyes: normal inspection, sclerae normal Neck: supple, no JVD Respiratory/Chest: chest non-tender, lungs clear, normal breath sounds Cardiovascular: regular rate, rhythm, no murmur Abdomen: non tender, soft Extremities: no pedal edema, no calf tenderness Laboratory Results Last 24 Hours Test 07/22/17 16:17 07/22/17 16:34 07/22/17 16:56 07/22/17 17:16 Bedside Glucose 55 mg/dl 56 mg/dl 66 mg/dl 67 mg/dl Test 07/22/17 17:39 07/22/17 19:53 07/22/17 20:27 07/22/17 20:57 Bedside Glucose 75 mg/dl 59 mg/dl 54 mg/dl 187 mg/dl Test 07/23/17 07:41 07/23/17 07:42 07/23/17 08:10 07/23/17 11:26 Bedside Glucose 62 mg/dl 59 mg/dl 82 mg/dl 64 mg/dl Test 07/23/17 11:27 Bedside Glucose 67 mg/dl Assessment and Plan Patient is a pleasant 51 y/o female, with 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 UTI/ Metabolic encephalopathy, E Coli kelley sensitive - po cipro, PT/OT consulted - CM to assist with discharge planning regarding possible placement - family interested in short term PT/OT placement with goal to return home. Hypokalemia: resolved HTN: control secondary risk prevention h/o CVA w/ residual right-sided paralysis and expressive asphasia: Spastic RLE, Ambulatory dysfunction - Continue Plavix 75 mg daily - PT/OT evals - Pt is requesting rehab T2DM: initially held Glimepiride did restart and did have lower glucose will stop again and limit diet - Start boost glucose control Severe Protein Malnutrition boost supplementation as above Tobacco abuse:- Smoking cessation counselling - patient has smoked 1.5 ppd for > 20 years. - Nicotine patch 21mcg Alcohol abuse/ dependence, stopped more than a week before admission, should be past withdrawal Chronic L knee pain: - Multiple surgeries in the past, scheduled Tylenol 650 mg Q4wa, adding voltaren gel to try to help GERD: Zantac 150 mg BID DVT prophylaxis: Lovenox SQ Code status: LEVEL I, FULL- Dispo: From home, lives w/ insulation blower/boyfriend, PT/OT for rehab, and CM consulted
[2017-07-23 15:42] VITALS: BP 125/84; PULSE 82; TEMP 36.5; O2SAT 100
[2017-07-23] MEDS: ENOXAPARIN 40 MG/0.4 ML SYR SQ SCH (20:41)
[2017-07-23 23:21] VITALS: BP 145/99; PULSE 65; TEMP 36.3; O2SAT 98
[2017-07-24] MEDS: DICLOFENAC SOD 1% GEL 100 GM TUBE EXT SCH ×2 (00:04→08:10)
[2017-07-24 07:16] VITALS: BP 107/81; PULSE 96; TEMP 36.8; O2SAT 98
[2017-07-24 07:38] LABS: HEMATOCRIT 42.1 % (37-47); HEMOGLOBIN 14.4 g/dL (12.0-16.0); MEAN CELL VOLUME 98.6 fL (80-100); MEAN CORPUSCULAR HEMOGLOBIN 33.7 pg (25-34); MEAN CORPUSCULAR HGB CONC 34.2 g/dl (32-36); MEAN PLATELET VOLUME 9.4 fL (7.4-10.4); PLATELET COUNT 297 K/uL (130-400); RED CELL DISTRIBUTION WIDTH CV 13.1 % (11.5-14.5); RED CELL DISTRIBUTION WIDTH SD 46.9 fL (36.4-46.3); WHITE BLOOD COUNT 4.56 K/uL (4.8-10.8)
[2017-07-24] MEDS: INSULIN ASPART 100 UNITS/ML 3 ML PEN SC SCH ×2 (08:08→11:44)
[2017-07-24] MEDS: CLOPIDOGREL BISULFATE 75 MG TAB PO SCH (08:11)
[2017-07-24] MEDS: FoLIC ACID TAB 400 MCG TAB PO SCH (08:11)
[2017-07-24] MEDS: BOOST GLUCOSE CONTROL PO SCH (08:11)
[2017-07-24] MEDS: ATORVASTATIN 20 MG TAB PO SCH (08:11)
[2017-07-24] MEDS: THIAMINE HCL 100 MG TAB PO SCH (08:12)
[2017-07-24] MEDS: CEROVITE ADV FORMULA TAB PO SCH (08:12)
[2017-07-24] MEDS: CIPROFLOXACIN 500 MG TAB PO SCH (08:13)
[2017-07-24] MEDS: NYSTATIN POWDER 15GM BTL EXT SCH (08:14)
[2017-07-24] MEDS: ACETAMINOPHEN 325 MG TAB PO SCH ×2 (08:14→11:43)
[2017-07-24 08:15] LABS: CALCIUM 8.6 mg/dl (8.5-10.1); CREATININE 0.59 mg/dl (0.60-1.20)
[2017-07-24] MEDS: NICOTINE 21 MG/24 HR TDSY TD SCH (08:21)
[2017-07-24] MEDS ORDERED: NICO21DI4 TD (10:23)
[2017-07-24] MEDS ORDERED: CPR500 PO (10:23)
[2017-07-24] MEDS ORDERED: ACET-1256 PO (10:23)
[2017-07-24] MEDS ORDERED: CLB100 PO (10:23)
[2017-07-24] MEDS ORDERED: NVLGIPEN SC (10:23)
--- NOTE | 2017-07-24 10:26 | Discharge Instructions ---
Discharge Instructions Date of Service July 24, 2017. Admission Reason for Admission: Uti, Weakness Discharge Discharge Diagnosis / Problem: uti poa with encephalopathy Discharge Goals Goal(s): Diagnostic testing, Therapeutic intervention Activity Recommendations Activity Level: Assistance Required Therapies: Physical Therapy, Occupational Therapy, Speech Therapy . 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 UTI/ Metabolic encephalopathy, E Coli kelley sensitive - po cipro, PT/OT consulted placement with goal to return home. Hypokalemia: resolved HTN: control secondary risk prevention h/o CVA w/ residual right-sided paralysis and expressive asphasia: Spastic RLE, Ambulatory dysfunction - Continue Plavix 75 mg daily, statin T2DM: initially held Glimepiride did restart and did have lower glucose will stop again and limit diet have ssi for incase but pt may not need meds if follows diet boost glucose control Severe Protein Malnutrition boost supplementation as above Tobacco abuse:- Smoking cessation counselling - patient has smoked 1.5 ppd for > 20 years. - Nicotine patch 21mcg Alcohol abuse/ dependence, stopped more than a week before admission, should be past withdrawal Chronic L knee pain: - Multiple surgeries in the past, scheduled Tylenol and adding celebrex, voltaren gel with minimal affect GERD: Zantac 150 mg BID Code status: LEVEL I, FULL- Dispo: From home, lives w/ telesales representative/boyfriend, PT/OT for rehab, Boyfriend wants her to eventually return home Current Hospital Diet Patient's current hospital diet: Diabetes Type 2 Diet Discharge Diet Recommended Diet: Diabetes Type 2 Diet Pending Studies Studies pending at discharge: no Laboratory Results Hemoglobin A1c Test 07/22/17 05:35 Range/Units Estimated Average Glucose 68 mg/dl Hemoglobin A1c < 4.0 L 4.5-5.6 % Medical Emergencies . Who to Call and When: Medical Emergencies: If at any time you feel your situation is an emergency, please call 911 immediately. . Non-Emergent Contact Non-Emergency issues call your: Primary Care Provider Call Non-Emergent contact if: temperature is above 101 . . "Provider Documentation" section prepared by Chris Cole. . Core Measure Problem Core Measures: None
--- NOTE | 2017-07-24 10:27 | Discharge Summary ---
Discharge Summary Date of Service July 24, 2017. Discharge Summary Admission Date: July 20, 2017 at 17:17 Discharge Date: July 24, 2017 Discharge Disposition: Rehab Principal Diagnosis: metabolic encephalopathy from uti poa, previous stroke with hemiparesis Immunizations: Have You Had Influenza Vaccine: No History of Tetanus Vaccine?: UTD History of Pneumococcal: No History of Hepatitis B Vaccine: Unknown Medication Reconciliation New Medications: Acetaminophen (Tylenol) 500 Mg Tab 1000 MG PO TID, #90 TAB Celecoxib (Celebrex) 100 Mg Cap 1 CAP PO BID for 30 Days, #60 CAP 3 Refills Ciprofloxacin (Ciprofloxacin HCl) 500 Mg Tab 500 MG PO BID, #10 TAB Insulin Aspart (Novolog Flexpen) 100 Units/Ml Inj 0 UNITS SC ACHS, #1 PEN Nicotine (Nicoderm Cq) 21 Mg/24 Hr Dis 1 PATCH TD QAM, #14 PATCH Continued Medications: Atorvastatin (Lipitor) 20 Mg Tab 1 TAB PO DAILY for 30 Days, #30 TAB 5 Refills Clopidogrel (Plavix) 75 Mg Tab 75 MG PO DAILY Folic Acid (Folvite) 1 Mg Tab 1 TAB PO DAILY for 90 Days, #90 TAB 1 Refill Miconazole Nitrate (Desenex Shake Powder) 43 Appln/43 Gm Powd 1 APPLN EXT BID PRN for Affected Skin Folds for 7 Days, #60 GM Polyethylene (Miralax) 17 Gm Pow 17 GM PO DAILY PRN for Constipation for 30 Days, #30 PKT Ranitidine (Zantac) 150 Mg Tab 150 MG PO Q12 PRN for HEARTBURN Discontinued Medications: Acetaminophen (Mapap) 325 Mg Tab 500 MG PO Q6H PRN for Pain or Fever, #30 TAB Fluconazole (Fluconazole) 50 Mg Tab 150 MG PO DIRECTED for 2 Days, #2 TAB every 3 days starting 11/04 Glimepiride (Glimepiride) 2 Mg Tab 2 MG PO DAILY Metronidazole (Metronidazole) 500 Mg Tab 500 MG PO BID for 7 Days, #14 TAB Discharge Exam Review of Systems: Constitutional: + weakness, + fatigue, No fever, No chills Abdomen: No pain, No nausea, No vomiting Physical Exam: General Appearance: WD/WN, + mild distress Respiratory/Chest: chest non-tender, lungs clear, normal breath sounds Cardiovascular: regular rate, rhythm, no murmur Hospital Course Patient is a pleasant 51 y/o female, with 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 UTI/ Metabolic encephalopathy, E Coli kelley sensitive - po cipro, PT/OT consulted placement with goal to return home. Hypokalemia: resolved HTN: control secondary risk prevention h/o CVA w/ residual right-sided paralysis and expressive asphasia: Spastic RLE, Ambulatory dysfunction - Continue Plavix 75 mg daily, statin T2DM: initially held Glimepiride did restart and did have lower glucose will stop again and limit diet have ssi for incase but pt may not need meds if follows diet boost glucose control Severe Protein Malnutrition boost supplementation as above Tobacco abuse:- Smoking cessation counselling - patient has smoked 1.5 ppd for > 20 years. - Nicotine patch 21mcg Alcohol abuse/ dependence, stopped more than a week before admission, should be past withdrawal Chronic L knee pain: - Multiple surgeries in the past, scheduled Tylenol and adding celebrex, voltaren gel with minimal affect GERD: Zantac 150 mg BID Code status: LEVEL I, FULL- Dispo: From home, lives w/ fpga engineer/boyfriend, PT/OT for rehab, Boyfriend wants her to eventually return home Total Time Spent: Greater than 30 minutes This includes examination of the patient, discharge planning, medication reconciliation, and communication with other providers. Discharge Instructions Please refer to the electronic Patient Visit Report (Discharge Instructions) for additional information.
[2017-07-24 11:25] VITALS: BP 107/81; PULSE 96; TEMP 36.8; O2SAT 98
== END 2017-07-24 13:00 | DRG 689 ==
LOC: C.EDB 12:53 → EDBD 12:53 → C.MS2W 17:17 → ENRESERV 17:32
PROVIDERS: ADMIT Internal Medicine; ATTEND Internal Medicine
DX: N39.0 Urinary tract infection, site not specified (principal); G93.41 Metabolic encephalopathy; E43 Unspecified severe protein-calorie malnutrition; I69.351 Hemiplegia and hemiparesis following cerebral infarction affecting right dominant side; I69.320 Aphasia following cerebral infarction; B96.20 Unspecified Escherichia coli [E. coli] as the cause of diseases classified elsewhere; E11.9 Type 2 diabetes mellitus without complications; I10 Essential (primary) hypertension; E87.6 Hypokalemia; K21.9 Gastro-esophageal reflux disease without esophagitis; M25.562 Pain in left knee; G89.29 Other chronic pain; E86.0 Dehydration; Z68.22 Body mass index [BMI] 22.0-22.9, adult; Z79.02 Long term (current) use of antithrombotics/antiplatelets; Z79.899 Other long term (current) drug therapy

== ENCOUNTER 2018-08-07 21:52 | Inpatient (IN) ==
--- OUTSIDE RECORDS SUMMARY | 2018-08-07 21:57 | External Medical Summary | Continuity of Care Document ---
:1965 Author Name Viry Garcia, Provider Address Unavailable Unavailable , Care Team Providers Name Role Phone Gita Bustamante PA-C Unavailable [email or web address] Cass Sprague M.D. Unavailable [email or web address] Romain NEVAREZ Unavailable [email or web address] PRO Radha, W Unavailable Unavailable Unavailable Unavailable Unavailable Problems Hypokalemia (276.8) (E87.6) Rash (782.1) (R21) Vaginal candidiasis (112.1) (B37.3) Vitamin B12 deficiency (266.2) (E53.8) Anemia (285.9) (D64.9) Type 2 diabetes mellitus (250.00) (E11.9) Urine frequency (788.41) (R35.0) Skin lesion (709.9) (L98.9) Alcohol abuse (305.00) (F10.10) Febrile (780.60) (R50.9) Hematuria (599.70) (R31.9) History of tobacco use (V15.82) (Z87.891) Lump or mass in breast (611.72) (N63.0) Screening for thyroid disorder (V77.0) (Z13.29) Hemiplegia of dominant side, late effect of cerebrovascular disease (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 11) (I69.920) Ataxic gait (781.2) (R26.0) Hyperlipidemia (272.4) (E78.5) Joint pain, knee (719.46) (M25.569) Dyspepsia (536.8) (R10.13) Ingrowing toenail (703.0) (L60.0) Dysuria (788.1) (R30.0) Acquired deformity of clavicle (738.8) (M95.8) Nicotine dependence (305.1) (F17.200) Allergies and Adverse Reactions No Known Drug Allergies (Allergy) Medications Clopidogrel Bisulfate 75 MG Oral Tablet; TAKE 1 TABLET DAILY. Radha Sprague Quantity: 30 Refills: 5 methylPREDNISolone 4 MG Oral Tablet Therapy Pack; 1 pa ck as directed ROQUE Hoyos Start: 21-Feb-2018 Quantity: 1 21 Tablet Pack Refills: 0 Nystatin-Triamcinolone 127747-2.1 UNIT/G M-% External Cream; APPLY SPARINGLY TO AFFECTED AREA(S) 3 TIMES A DAY Radha Sprague Start: 29-Nov-2017 Quantity: 1 60 GM Tube Refills: 3 Mupirocin 2 % External Ointment; APPLY S PARINGLY TO AFFECTED AREA(S) TWICE DAILY Radha Sprague Start: 11-Aug-2017 Quantity: 1 22 GM Tube Refills: 3 Tolterodine Tartrate 2 MG Oral Tablet; TAKE 1 TABLET A T BEDTIME. Radha Sprague Start: 21-Mar-2017 Quantity: 30 Refills: 1 Nystatin 580411 UNIT/GM External Powder; APPLY TOPICALLY TO AFFECTED AREA 2 TIMES DAILY to affected area ROQUE Hoyos Start: 11-Aug-2016 Quantity: 1 60 GM Bottle Refills: 1 Potassium Chloride Lore ER 20 MEQ Oral T ablet Extended Release; TAKE 1 TABLET BY MOUTH TWICE DAILY ROQUE Hoyos Start: 02-Mar-2018 Quantity: 180 Refills: 0 hydrOXYzine HCl - 25 MG Oral Tablet; TAKE 1 TABLET Every 6 h ours PRN Start: 15-Feb-2018 Refills: 0 Benadryl Itch Stopping 1-0.1 % External Cream; APPLY SPARINGLY TO AFFECTED AREA(S) 3 TIMES A DAY Start: 15-Feb-2018 Refills: 0 28.3 GM Tube Folic Acid 1 MG Oral Tablet; Take 1 tablet daily with breakfast ROQUE Hoyos Start: 24-Nov-2016 Quantity: 90 Refills: 3 Prevail Breezers Medium; Use 2 pulls up dailys as need ed for incontinence. ROQUE Bustamante Gita ACa Start: 25-Dec-2012 Quantity: 180 Refills: 0 raNITIdine HCl - 150 MG Oral Tablet; Jose A e one (1) tablet(s) EVERY 12 HOURS asneeded. Radha Sprague Start: 30-Nov-2011 Quantity: 60 Refills: 5 Procedures History of Hysterectomy Status: Complete d History of Knee Surgery Status: Complete d History of Oral Surgery Tooth Extraction Status: Completed Immunizations Immunizations not documented Family History natural daughter Family history of Cholecystectomy Status: Active Social History - Smoking Status Smoker. current status unknown Plan of Treatment Planned Observations Planned Goals not documented Results No Known Results Results not documented Encounters Appointment; Jacinta Hoyos PA-C 21-Feb-2018 13:00 Encounter Diagnosis: Problem not documented Appointment; Ant Sprague M.D. 10-Aug-2017 16:00 Encounter Diagnosis: Problem not documented Appointment; Ant Sprague M.D. 21-Mar-2017 16:30 Encounter Diagnosis: Problem not documented Appointment; Jacinta Hoyos PA-C 01-Dec-2016 14:00 Encounter Diagnosis: Problem not documented Appointment; Jacinta Hoyos PA-C 01-Sep-2016 15:30 Encounter Diagnosis: Problem not documented Appointment; Jacinta Hoyos PA-C 11-Aug-2016 15:15 Encounter Diagnosis: Problem not documented
[2018-08-07] MEDS ORDERED: SODIUM CHLORIDE 0.9% 500 ML IV SCH (22:30)
[2018-08-07 23:47] LABS: Basophils # (auto) 0.02 K/uL (0-0.2); Basophils % (auto) 0.2 %; Eosinophils # (auto) 0.12 K/uL (0-0.5); Eosinophils % (auto) 1.4 %; Hematocrit (blood only) 38.3 % (37-47); Hemoglobin 13.5 g/dL (12.0-16.0); Immature Granulocytes # (auto) 0.01 K/uL (0.00-0.02); Immature Granulocytes % (auto) 0.1 %; Lymphocytes # (auto) 3.77 K/uL (1.2-3.4); Mean Corpuscular Hgb Conc 35.2 g/dL (32-36); Mean Corpuscular Volume 93.4 fL (80-100); Mean Platelet Volume 8.9 fL (7.4-10.4); Monocytes # (auto) 0.54 K/uL (0.11-0.59); Monocytes % (auto) 6.3 %; Platelet Count 332 K/uL (130-400); RDW Coefficient of Variation 14.4 % (11.5-14.5); RDW Standard Deviation 47.3 fL (36.4-46.3); White Blood Count 8.56 K/uL (4.8-10.8)
[2018-08-07 23:52] LABS: Appearance Urine Cloudy (Clear); Bacteria Urine Automated 3+ (Negative); Bilirubin Urine Negative (Negative); Blood Urine Negative (Negative); Color Urine Orange; Epithelial Cell Urine Auto 20-30 /lpf (0-5); Glucose Urine UA Negative (Negative); Ketones Urine Negative (Negative); Leukocyte Esterase Urine 2+ (Negative); Nitrite Urine Positive (Negative); Protein Urine Negative (Negative); RBC Urine Automated 0-4 /hpf (0-4); Urobilinogen Urine Negative (Negative); pH Urine 5.5 (4.5-7.5)
[2018-08-07 23:56] LABS: INR 1.1 (0.9-1.1); Prothrombin Time 10.8 Seconds (9.0-12.0)
[2018-08-08 00:26] LABS: Alanine Aminotransferase 20 U/L (12-78); Albumin Globulin Ratio 0.7 (0.9-2); Albumin Level 2.2 gm/dl (3.4-5.0); Alkaline Phosphatase 158 U/L (45-117); Aspartate Aminotransferase 32 U/L (15-37); BUN Creatinine Ratio 22.6 (10-20); Bilirubin Direct 0.4 mg/dl (0-0.2); Bilirubin,Total 0.9 mg/dl (0.2-1); Blood Urea Nitrogen 9 mg/dl (7-18); Calcium 8.2 mg/dl (8.5-10.1); Carbon Dioxide 33 mmol/L (21-32); Chloride 97 mmol/L (98-107); Creatinine Clr Calc Pharmacy 117.7 ml/min; Est GFR (African American) 138.8; Est GFR (Non-African American) 119.8; Globulin 3.2 gm/dl (2.5-4.0); Glucose 91 mg/dl (70-99); Magnesium 1.5 mg/dl (1.8-2.4); Phosphorus 2.9 mg/dl (2.5-4.9); Potassium 2.2 mmol/L (3.5-5.1); Sodium 139 mmol/L (136-145); Total Protein 5.4 gm/dl (6.4-8.2); Troponin I < 0.015 ng/ml (0-0.045)
[2018-08-08] MEDS ORDERED: OPTIRAY 320 125ml IV PRN (01:26)
[2018-08-08] MEDS ORDERED: POTASSIUM CHLORIDE / WTR 10 MEQ/100 ML PLCT IV STA ×2 (01:31→03:21)
[2018-08-08] MEDS ORDERED: POTASSIUM CHLORIDE PWD 20 MEQ PACK PO STA (01:31)
[2018-08-08] MEDS ORDERED: cefTRIAXone SODIUM 1,000 MG/50 ML BAG IV STA (01:34)
[2018-08-08] MEDS ORDERED: ACETAMINOPHEN 500 MG TAB ONE (02:11)
[2018-08-08] MEDS: MAGNESIUM SULFATE / D5W 1 GM/100 ML BAG IV SCH ×2 (02:16→03:17)
[2018-08-08] MEDS ORDERED: ACETAMINOPHEN 500 MG TAB PO STA (02:22)
--- NOTE | 2018-08-08 03:00 | Emergency Department Note ---
Entered by Portia Nelson acting as a scribe for Preet Butts MD History of Present Illness General Chief complaint: Weakness Time Seen by Provider: 08/07/18 22:26 Source: patient and other (significant other) Limitations: no limitations History of Present Illness Onset (ago): day(s) 2 Location: upper extremity (left) Pain Consistency: + constant Maximum Pain Intensity: 6 Quality: + other (weakness) Associated symptoms: + loss of appetite and + rash The patient is a 52 year old female who presents to the ED complaining of constant weakness in the left upper extremity that began 2 days ago. Her si gnificant other, at bedside, reports that she has been dropping objects and has "no control of the left arm." The patient's significant other complains that she has a rash on her buttocks and decreased appetite. The significant other notes that she had a stroke a few years ago, and "her entire right side doesn't work since that episode." Home Medications Home Medications Medication Instructions Recorded Confirmed Type clopidogrel 75 mg PO DAILY 11/18/17 08/07/18 History nystatin 1 applic TOPICAL BID 11/18/17 08/07/18 History ranitidine HCl 150 mg PO BID 11/18/17 08/07/18 History triamcinolone acetonide 1 applic EXT TID #15 g 02/08/18 08/07/18 Rx Allergies Allergy/AdvReac Type Severity Reaction Status Date / Time No Known Allergies Allergy Unknown Verified 08/07/18 23:16 Past Med/Surg History Medical History GERD (gastroesophageal reflux disease) CVA (cerebral vascular accident) Expressive aphasia Family History Other No pertinent family history in first degree relatives Social History Preferred Language: Guinean Communication Ability: Effective Communication Ability Comment: expressive aphasia, 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 and A total of 10 systems reviewed and were otherwise negative Physical Exam Vital Signs Vital Signs - 24 hr 08/07/18 23:41 08/08/18 01:19 08/08/18 02:30 Pulse Rate [Apical] 96 H 86 92 H Respiratory Rate 18 18 18 Respiratory Effort / Characteristics Non-Labored Spontaneous Non-Labored Spontaneous Non-Labored Spontaneous Respiratory Depth Normal Normal Normal Respiratory Pattern Regular Regular Regular Blood Pressure [Left Arm] 119/91 109/92 139/82 Blood Pressure Mean [Left Arm] 100 97 101 Blood Pressure Position [Left Arm] Sitting Lying Sitting Pulse Oximetry 100 99 99 Oxygen Delivery Method Room Air Room Air Room Air GENERAL: Awake, alert, chronically ill-appearing, in no distress. HENT: Normocephalic, atraumatic. Oropharynx with dry mucous membranes and otherwise unremarkable. EYES: Normal conjunctiva. Sclera non-icteric. NECK: Supple. No nuchal rigidity. FROM. No JVD. RESPIRATORY: CTAB. CARDIAC: Regular rate, normal rhythm. Extremities warm and well perfused. Pulses equal. ABDOMEN: Soft, non-distended. No tenderness to palpation. No rebound or guarding. No masses. RECTAL: Deferred. MUSCULOSKELETAL: Chest examination reveals no tenderness. The back is symmetrical on inspection without obvious abnormality. There is no CVA tenderness to palpation. No joint edema. LOWER EXTREMITIES: Calves are equal size bilaterally and non-tender. No edema. No discoloration. NEURO: Nonverbal at baseline. 3/5 strength in the right upper and lower extremities. 4/5 strength in the left upper and left lower extremities. SKIN: No jaundice noted. Diffuse beefy red moist erythematous rash bilateral buttocks and perianal region. Course 2334: The patient was evaluated in room A11B. A complete history and physical exam was performed. 0134: I spoke with Dr. Ana Yap, [facility] hospitalist, about the patients case. She will further evaluate the patient. Administered Medications Clopidogrel Bisulfate (Plavix) 75 mg PO DAILY MACHO Stop: 09/07/18 08:59 Last Admin: 08/08/18 09:14 Dose: 75 mg Documented by: [id number] Enoxaparin Sodium (Lovenox) 40 mg SQ Q24H MACHO Stop: 09/07/18 08:59 Last Admin: 08/08/18 09:13 Dose: 40 mg Documented by: [id number] Folic Acid (Folvite) 1 mg PO QAM [facility]ACHO Stop: 09/07/18 13:59 Last Admin: 08/08/18 13:57 Dose: 1 mg Documented by: [id number] Potassium Chloride/Sodium Chloride (Normal Saline W/20 Meq Kcl) 20 meq in 1,000 mls @ 75 mls/hr IV .[id number] MACHO Stop: 08/09/18 03:19 Last Admin: 08/08/18 13:58 Dose: 75 mls/hr Documented by: [id number] Lactobacillus Acidophilus (Floranex) 4 tab PO TIDM [facility]ACHO Stop: 09/07/18 16:59 Last Admin: 08/08/18 18:17 Dose: 4 tab Documented by: [id number] Nystatin (Mycostatin) 1 appln EXT BID [facility] Stop: 09/07/18 08:59 Last Admin: 08/08/18 20:51 Dose: 1 appln Documented by: [id number] Admin: 08/08/18 09:14 Dose: 1 appln Documented by: [id number] Potassium Chloride (Klor-Con M10) 10 meq PO BID MACHO Stop: 09/07/18 13:59 Last Admin: 08/08/18 20:51 Dose: 10 meq Documented by: [id number] Admin: 08/08/18 13:57 Dose: 10 meq Documented by: [id number] Ranitidine HCl (Zantac) 150 mg PO BID [facility] Stop: 09/07/18 08:59 Last Admin: 08/08/18 20:51 Dose: 150 mg Documented by: [id number] Admin: 08/08/18 09:14 Dose: 150 mg Documented by: [id number] Triamcinolone Acetonide (Kenalog 0.1%) 1 appln EXT TID [facility] Stop: 09/07/18 08:59 Last Admin: 08/08/18 20:52 Dose: 1 appln Documented by: [id number] Admin: 08/08/18 13:57 Dose: 1 appln Documented by: [id number] Admin: 08/08/18 09:13 Dose: 1 appln Documented by: [id number] Discontinued Medications Acetaminophen (Tylenol) Confirm Administered Dose 1,000 mg .ROUTE .STK-MED ONE Stop: 08/08/18 02:12 Last Admin: 08/08/18 02:15 Dose: 1,000 mg Documented by: [id number] Acetaminophen (Tylenol) 1,000 mg PO NOW STA Stop: 08/08/18 02:23 Last Admin: 08/08/18 02:23 Dose: Not Given Documented by: [id number] Sodium Chloride (Nss) 500 mls @ 999 mls/hr IV .Q31M [facility]ACHO Stop: 08/07/18 23:00 Last Infusion: 08/08/18 00:10 Dose: 0 mls/hr Documented by: [id number] Admin: 08/07/18 23:39 Dose: 999 mls/hr Documented by: [id number] Potassium Chloride (K Kev / Wtr) 10 meq in 100 mls @ 100 mls/hr IV NOW STA Stop: 08/08/18 02:30 Last Infusion: 08/08/18 03:17 Dose: 0 mls/hr Documented by: [id number] Admin: 08/08/18 02:17 Dose: 100 mls/hr Documented by: [id number] Magnesium Sulfate/Dextrose (Magnesium Sulfate / D5w) 1 gm in 100 mls @ 100 mls/hr IV Q1H [facility]ACHO Stop: 08/08/18 03:44 Last Infusion: 08/08/18 04:26 Dose: 0 mls/hr Documented by: [id number] Admin: 08/08/18 03:17 Dose: 100 mls/hr Documented by: [id number] Infusion: 08/08/18 03:17 Dose: 0 mls/hr Documented by: [id number] Admin: 08/08/18 02:16 Dose: 100 mls/hr Documented by: [id number] Ceftriaxone Sodium (Rocephin) 1,000 mg in 50 mls @ 100 mls/hr IV NOW STA Stop: 08/08/18 02:03 Last Infusion: 08/08/18 02:14 Dose: 0 mls/hr Documented by: [id number] Admin: 08/08/18 01:44 Dose: 100 mls/hr Documented by: [id number] Potassium Chloride (K Kev / Wtr) 10 meq in 100 mls @ 100 mls/hr IV NOW STA Stop: 08/08/18 04:20 Last Infusion: 08/08/18 04:40 Dose: 0 mls/hr Documented by: [id number] Admin: 08/08/18 03:22 Dose: 100 mls/hr Documented by: [id number] Magnesium Sulfate/Dextrose (Magnesium Sulfate / D5w) 1 gm in 100 mls @ 100 mls/hr IV ONE ONE Stop: 08/08/18 05:29 Last Infusion: 08/08/18 05:50 Dose: 0 mls/hr Documented by: [id number] Admin: 08/08/18 04:38 Dose: 100 mls/hr Documented by: [id number] Ioversol (Optiray 320 125ml) 125 ml IV ONCE PRN PRN Reason: Interaction Checking Stop: 08/12/18 01:25 Last Admin: 08/08/18 01:26 Dose: 117 ml Documented by: [id number] Potassium Chloride (Klor-Con Pwd) 40 meq PO NOW STA Stop: 08/08/18 01:32 Last Admin: 08/08/18 02:04 Dose: 40 meq Documented by: [id number] Potassium Chloride (Klor-Con M20) 60 meq PO ONE ONE Stop: 08/08/18 04:31 Last Admin: 08/08/18 04:39 Dose: 60 meq Documented by: [id number] Medical Decision Making Differential Diagnosis Differential includes acute coronary syndrome, myocardial infarction, CVA, TIA, anemia, infection, pneumonia, UTI, pyelonephritis, poor nutrition, dehydration, electrolyte disturbance,hypoglycemia. Medical Records Attestation: I reviewed the patient's medical records. Home Medications Current Medication List: was personally reviewed by me Laboratory Data Attestation: I reviewed the patient's lab results. Result diagrams: 08/07/18 23:27 08/08/18 11:30 Lab Results 08/07/18 08/07/18 08/07/18 Range/Units 23:05 23:27 23:27 WBC 8.56 (4.8-10.8) K/uL RBC 4.10 L (4.2-5.4) M/uL Hgb 13.5 (12.0-16.0) g/dL Hct 38.3 (37-47) % MCV 93.4 (80-100) fL MCH 32.9 (25-34) pg MCHC 35.2 (32-36) g/dL RDW Std Deviation 47.3 H (36.4-46.3) fL RDW Coeff of Reece 14.4 (11.5-14.5) % Plt Count 332 (130-400) K/uL MPV 8.9 (7.4-10.4) fL Immature Gran % (Auto) 0.1 % Neut % (Auto) 48.0 % Lymph % (Auto) 44.0 % Pitkin % (Auto) 6.3 % Eos % (Auto) 1.4 % Baso % (Auto) 0.2 % Immature Gran # (Auto) 0.01 (0.00-0.02) K/uL Neut # (Auto) 4.10 (1.4-6.5) K/uL Lymph # (Auto) 3.77 H (1.2-3.4) K/uL Pitkin # (Auto) 0.54 (0.11-0.59) K/uL Eos # (Auto) 0.12 (0-0.5) K/uL Baso # (Auto) 0.02 (0-0.2) K/uL PT (9.0-12.0) Seconds INR (0.9-1.1) Sodium 139 (136-145) mmol/L Potassium 2.2 L* (3.5-5.1) mmol/L Chloride 97 L (98-107) mmol/L Carbon Dioxide 33 H (21-32) mmol/L Anion Gap 8.0 (3-11) BUN 9 (7-18) mg/dl Creatinine 0.40 L (0.6-1.2) mg/dl Est Cr Clr Drug Dosing 117.7 ml/min Est GFR ( Amer) 138.8 Est GFR (Non-Af Amer) 119.8 BUN/Creatinine Ratio 22.6 H (10-20) Glucose 91 (70-99) mg/dl Calcium 8.2 L (8.5-10.1) mg/dl Phosphorus 2.9 (2.5-4.9) mg/dl Magnesium 1.5 L (1.8-2.4) mg/dl Total Bilirubin 0.9 (0.2-1) mg/dl Direct Bilirubin 0.4 H (0-0.2) mg/dl AST 32 (15-37) U/L ALT 20 (12-78) U/L Alkaline Phosphatase 158 H (45-117) U/L Troponin I < 0.015 (0-0.045) ng/ml Total Protein 5.4 L (6.4-8.2) gm/dl Albumin 2.2 L (3.4-5.0) gm/dl Globulin 3.2 (2.5-4.0) gm/dl Albumin/Globulin Ratio 0.7 L (0.9-2) Lipase 96 (73-393) U/L TSH 3.300 (0.300-4.500) uIu/ml Urine Color [place] Urine Appearance Cloudy A (Clear) Urine pH 5.5 (4.5-7.5) Ur Specific [place] 1.010 (1.000-1.030) Urine Protein Negative (Negative) Urine Glucose (UA) Negative (Negative) Urine Ketones Negative (Negative) Urine Blood Negative (Negative) Urine Nitrite Positive A (Negative) Urine Bilirubin Negative (Negative) Urine Urobilinogen Negative (Negative) Ur Leukocyte Esterase 2+ H (Negative) Urine WBC (Auto) 10-30 H (0-5) /hpf Urine RBC (Auto) 0-4 (0-4) /hpf U Hyaline Cast (Auto) 1-5 (0-5) /lpf U Epithel Cells (Auto) 20-30 H (0-5) /lpf Urine Bacteria (Auto) 3+ H (Negative) 08/07/18 Range/Units 23:27 WBC (4.8-10.8) K/uL RBC (4.2-5.4) M/uL Hgb (12.0-16.0) g/dL Hct (37-47) % MCV (80-100) fL MCH (25-34) pg MCHC (32-36) g/dL RDW Std Deviation (36.4-46.3) fL RDW Coeff of Reece (11.5-14.5) % Plt Count (130-400) K/uL MPV (7.4-10.4) fL Immature Gran % (Auto) % Neut % (Auto) % Lymph % (Auto) % [place]kin % (Auto) % Eos % (Auto) % Baso % (Auto) % Immature Gran # (Auto) (0.00-0.02) K/uL Neut # (Auto) (1.4-6.5) K/uL Lymph # (Auto) (1.2-3.4) K/uL Pitkin # (Auto) (0.11-0.59) K/uL Eos # (Auto) (0-0.5) K/uL Baso # (Auto) (0-0.2) K/uL PT 10.8 (9.0-12.0) Seconds INR 1.1 (0.9-1.1) Sodium (136-145) mmol/L Potassium (3.5-5.1) mmol/L Chloride (98-107) mmol/L Carbon Dioxide (21-32) mmol/L Anion Gap (3-11) BUN (7-18) mg/dl Creatinine (0.6-1.2) mg/dl Est Cr Clr Drug Dosing ml/min Est GFR ( Amer) Est GFR (Non-Af Amer) BUN/Creatinine Ratio (10-20) Glucose (70-99) mg/dl Calcium (8.5-10.1) mg/dl Phosphorus (2.5-4.9) mg/dl Magnesium (1.8-2.4) mg/dl Total Bilirubin (0.2-1) mg/dl Direct Bilirubin (0-0.2) mg/dl AST (15-37) U/L ALT (12-78) U/L Alkaline Phosphatase (45-117) U/L Troponin I (0-0.045) ng/ml Total Protein (6.4-8.2) gm/dl Albumin (3.4-5.0) gm/dl Globulin (2.5-4.0) gm/dl Albumin/Globulin Ratio (0.9-2) Lipase (73-393) U/L TSH (0.300-4.500) uIu/ml Urine Color Urine Appearance (Clear) Urine pH (4.5-7.5) Ur Specific [place] (1.000-1.030) Urine Protein (Negative) Urine Glucose (UA) (Negative) Urine Ketones (Negative) Urine Blood (Negative) Urine Nitrite (Negative) Urine Bilirubin (Negative) Urine Urobilinogen (Negative) Ur Leukocyte Esterase (Negative) Urine WBC (Auto) (0-5) /hpf Urine RBC (Auto) (0-4) /hpf U Hyaline Cast (Auto) (0-5) /lpf U Epithel Cells (Auto) (0-5) /lpf Urine Bacteria (Auto) (Negative) Imaging Data Attestation: I personally reviewed and interpreted this imaging study as follows: My Impression: XR CHEST 1V: Normal mediastinum. No focal infiltrates. Radiologist's Impression: Radiology results as stated below per my review and the radiologist's interpretation: CTA HEAD: There appears to be occlusion of the anterior M2 branch of the left MCA, probably chronic, given the chronic left MCA territorial infarction. There is no other arterial stenosis or occlusion. Radiologist: Alton Loo MD Study ready at 01:33 and initial results transmitted at 01:41. CTA Neck: Negative. Radiologist: Alton Loo MD Study ready at 01:33 and initial results transmitted at 01:37. CT HEAD: Large chronic left MCA infarction. No acute findings. Radiologist: Alton Loo MD Study ready at 01:29 and initial results transmitted at 01:30. ECG Data Attestation: I personally reviewed and interpreted this ECG as follows: Indication: weakness Rate (beats per minute): 98 Rhythm: normal sinus Findings: + other (rightward axis, non specific ST and T wave abnormalities, no over acute ischemia) Blood Pressure Blood Pressure Findings: Normal blood pressure Blood Pressure Disposition: did not require urgent referral MDM Narrative The patient is a pleasant 52 y/o woman with a pmhx of large left MCA stroke with residual deficits including nonverbal and right-sided weakness who presents to the emergency department accompanied by her partner concerned from worsening generalized weakness and new weakness of her LUE per HPI. On arrival the patient is chronically-ill and cachectic appearing in NAD, AFVSS. Patient appears clinically dry. She has 4/5 of LUE and LLE extremity , whch the patient's partner reports is new but is unsure when this began. Diffuse beefy red moist erythematous rash bilateral buttocks and perianal region. EKG without evidence of acute ischemia. CXR negative. WBC, H/H, platelets wnl. Chemistry without acidosis. Potassium 2.2 and Magnesium 1.5, with repletion provided. Otherwise, LFTs and electrolytes unremarkable. UA c/w UTI with nitrite+, LE 2+ 10-20 WBC and 3+ bacteria. Tx initiated with CTX. CTA head and neck per preliminary [facility] report shows old left MCA CVA but no new acute findings. Case was discussed with Dr. Yap, [facility] hospitalist, who will evaluate the patient for admission. Impression & Plan UTI (urinary tract infection), Hypokalemia, Hypomagnesemia Discharge Plan Visit Data *Final* Discharge Date/Time: 08/08/18 03:32 Chief Complaint: Weakness ED Provider: Preet Butts Discharge Problem: UTI (urinary tract infection), Hypokalemia, Hypomagnesemia Patient Disposition: Admitted As Inpatient Discharge Instructions Interventions: ED Discharge Assessment Last Done: 08/08/18 03:32 Discharge Problem: UTI (urinary tract infection) Qualifiers: Urinary tract infection type: site unspecified Hematuria presence: without hematuria Qualified Code(s): N39.0 - Urinary tract infection, site not specified The scribe's documentation has been prepared under my direction and personally reviewed by me in its entirety. I confirm that the note above accurately reflects all work, treatment, procedures, and medical decision making performed by me.
--- NOTE | 2018-08-08 03:04 | History & Physical Report ---
Date of Service August 08, 2018 Assessment & Plan (1) Weakness: In setting of UTI and electrolyte abnormalities. Patient with baseline deficit from prior stroke -Correct electrolytes as below -Ceftriaxone daily for UTI -Encourage PO intake -PT/OT evaluation -Case management consult for possible placement needs Present on Admission?: Yes (2) UTI (urinary tract infection): Afebrile, hemodynamically stable -Follow culutres -Ceftriaxone 1gm IV daily Present on Admission?: Yes (3) Hypokalemia: K=2.2, may very well be contributing to weakness. Administered 50mEq K in ER. -KDur 60mEq -Repeat BMP in AM Present on Admission?: Yes (4) Hypomagnesemia: Mg-1.5 -Magnesium sulfate 2gm IV -Repeat Mg in AM Present on Admission?: Yes (5) GERD (gastroesophageal reflux disease): Chronic. Stable --Continue Ranitidine Present on Admission?: Yes (6) History of CVA (cerebrovascular accident): Chronic. Stable deficit. Imaging negative -Continue Plavix daily Present on Admission?: Yes (7) Fungal dermatitis: Nystatin ointment BID F/E/N - NSS at 80mL/hr x 1, monitor electrolytes after repletion, Heart healthy diet with aspiration precautions Ppx - Lovenox Code - Full Dispo - Admit to medical floor History of Present Illness Chief Complaint: weakness, ftt Primary Care Provider: Ant Sprague MD Nazia Boyce is a 52yo C female with remote history of CVA with right sided weakness and expressive aphasia presenting with failure to thrive, increased weakness. On arrival to the ER she was found to be afebrile, hemodynamically stable, electrolyte abnormalities to include hypokalemia (K=2.2) and hypomagnesemia (Mg=1.5). Patient with significant expressive aphasia and does not offer much in way of history. She denies pain, SOB. ER Course: Tylenol, Ceftriaxone, magnesium 1gm, KCL 50Meq, NSS 500mL Allergies Allergy/AdvReac Type Severity Reaction Status Date / Time No Known Allergies Allergy Unknown Verified 08/07/18 23:16 Home Medications Home Medications Medication Instructions Recorded Confirmed Type clopidogrel 75 mg PO DAILY 11/18/17 08/07/18 History nystatin 1 applic TOPICAL BID 11/18/17 08/07/18 History ranitidine HCl 150 mg PO BID 11/18/17 08/07/18 History triamcinolone acetonide 1 applic EXT TID #15 g 02/08/18 08/07/18 Rx Past Med/Surg History Medical History GERD (gastroesophageal reflux disease) CVA (cerebral vascular accident) Expressive aphasia Family History Other No pertinent family history in first degree relatives Social History Preferred Language: Kinyarwanda Communication Ability: Impaired Beliefs That Will Affect Care: None Current Living Situation: Significant Other Feels Safe at Home: Yes Smoking Status: Current every day smoker Tobacco Type: cigarettes Cigarettes Per Day: 30 Second Hand Exposure: No Hx Alcohol Use: Yes Hx Substance Use: No Review of Systems Review of Systems: All systems reviewed & are unremarkable except as noted in HPI & below Difficult to obtain accurate ROS due to patient's aphasia Physical Exam Physical Exam: General: patient resting comfortably, NAD, non-toxic in appearance Skin: warm, dry, intact, +fungal rash HEENT: NC/AT, PERRL, EOMI, anicteric sclera, conjunctiva without injection, external ear normal to inspection and nontender, nares patent, dry mucus membranes, dentition intact, no oropharyngeal lesions, neck supple, trachea midline, no LAD, no thyromegaly, no JVD Heart: +S1/S2, regular, no m/r/g Lungs: equal air entry bilaterally, no rales/rhonchi, wheezing throughout Abd: +BS, soft, NT/ND, no masses/organomegaly/ascites Ext: warm, 2+ pulses in UE/LE bilaterally, no clubbing/cyanosis or edema Neuro: expressive aphasia ,weakness in RUE/RLE Results & Data Vital Signs (Past 12 Hours) Vital Signs Temp Pulse Pulse Resp BP BP Pulse Ox 08/08/18 02:30 92 H 18 139/82 99 08/08/18 01:19 86 18 109/92 99 08/07/18 23:41 96 H 18 119/91 100 08/07/18 21:53 36.5 C 103 H 22 129/95 97 Laboratory Results Lab Results 08/07/18 08/07/1819 Range/Units 23:05 23:27 23:27 WBC 8.56 (4.8-10.8) K/uL RBC 4.10 L (4.2-5.4) M/uL Hgb 13.5 (12.0-16.0) g/dL Hct 38.3 (37-47) % MCV 93.4 (80-100) fL MCH 32.9 (25-34) pg MCHC 35.2 (32-36) g/dL RDW Std Deviation 47.3 H (36.4-46.3) fL RDW Coeff of Reece 14.4 (11.5-14.5) % Plt Count 332 (130-400) K/uL MPV 8.9 (7.4-10.4) fL Immature Gran % (Auto) 0.1 % Neut % (Auto) 48.0 % Lymph % (Auto) 44.0 % [place] % (Auto) 6.3 % Eos % (Auto) 1.4 % Baso % (Auto) 0.2 % Immature Gran # (Auto) 0.01 (0.00-0.02) K/uL Neut # (Auto) 4.10 (1.4-6.5) K/uL Lymph # (Auto) 3.77 H (1.2-3.4) K/uL [place] # (Auto) 0.54 (0.11-0.59) K/uL Eos # (Auto) 0.12 (0-0.5) K/uL Baso # (Auto) 0.02 (0-0.2) K/uL PT (9.0-12.0) Seconds INR (0.9-1.1) Sodium 139 (136-145) mmol/L Potassium 2.2 L* (3.5-5.1) mmol/L Chloride 97 L (98-107) mmol/L Carbon Dioxide 33 H (21-32) mmol/L Anion Gap 8.0 (3-11) BUN 9 (7-18) mg/dl Creatinine 0.40 L (0.6-1.2) mg/dl Est Cr Clr Drug Dosing 117.7 ml/min Est GFR ( Amer) 138.8 Est GFR (Non-Af Amer) 119.8 BUN/Creatinine Ratio 22.6 H (10-20) Glucose 91 (70-99) mg/dl Calcium 8.2 L (8.5-10.1) mg/dl Phosphorus 2.9 (2.5-4.9) mg/dl Magnesium 1.5 L (1.8-2.4) mg/dl Total Bilirubin 0.9 (0.2-1) mg/dl Direct Bilirubin 0.4 H (0-0.2) mg/dl AST 32 (15-37) U/L ALT 20 (12-78) U/L Alkaline Phosphatase 158 H (45-117) U/L Troponin I < 0.015 (0-0.045) ng/ml Total Protein 5.4 L (6.4-8.2) gm/dl Albumin 2.2 L (3.4-5.0) gm/dl Globulin 3.2 (2.5-4.0) gm/dl Albumin/Globulin Ratio 0.7 L (0.9-2) Lipase 96 (73-393) U/L TSH 3.300 (0.300-4.500) uIu/ml Urine Color [place] Urine Appearance Cloudy A (Clear) Urine pH 5.5 (4.5-7.5) Ur Specific [place] 1.010 (1.000-1.030) Urine Protein Negative (Negative) Urine Glucose (UA) Negative (Negative) Urine Ketones Negative (Negative) Urine Blood Negative (Negative) Urine Nitrite Positive A (Negative) Urine Bilirubin Negative (Negative) Urine Urobilinogen Negative (Negative) Ur Leukocyte Esterase 2+ H (Negative) Urine WBC (Auto) 10-30 H (0-5) /hpf Urine RBC (Auto) 0-4 (0-4) /hpf U Hyaline Cast (Auto) 1-5 (0-5) /lpf U Epithel Cells (Auto) 20-30 H (0-5) /lpf Urine Bacteria (Auto) 3+ H (Negative) 08/07/18 Range/Units 23:27 WBC (4.8-10.8) K/uL RBC (4.2-5.4) M/uL Hgb (12.0-16.0) g/dL Hct (37-47) % MCV (80-100) fL MCH (25-34) pg MCHC (32-36) g/dL RDW Std Deviation (36.4-46.3) fL RDW Coeff of Reece (11.5-14.5) % Plt Count (130-400) K/uL MPV (7.4-10.4) fL Immature Gran % (Auto) % Neut % (Auto) % Lymph % (Auto) % [place] % (Auto) % Eos % (Auto) % Baso % (Auto) % Immature Gran # (Auto) (0.00-0.02) K/uL Neut # (Auto) (1.4-6.5) K/uL Lymph # (Auto) (1.2-3.4) K/uL [place] # (Auto) (0.11-0.59) K/uL Eos # (Auto) (0-0.5) K/uL Baso # (Auto) (0-0.2) K/uL PT 10.8 (9.0-12.0) Seconds INR 1.1 (0.9-1.1) Sodium (136-145) mmol/L Potassium (3.5-5.1) mmol/L Chloride (98-107) mmol/L Carbon Dioxide (21-32) mmol/L Anion Gap (3-11) BUN (7-18) mg/dl Creatinine (0.6-1.2) mg/dl Est Cr Clr Drug Dosing ml/min Est GFR ( Amer) Est GFR (Non-Af Amer) BUN/Creatinine Ratio (10-20) Glucose (70-99) mg/dl Calcium (8.5-10.1) mg/dl Phosphorus (2.5-4.9) mg/dl Magnesium (1.8-2.4) mg/dl Total Bilirubin (0.2-1) mg/dl Direct Bilirubin (0-0.2) mg/dl AST (15-37) U/L ALT (12-78) U/L Alkaline Phosphatase (45-117) U/L Troponin I (0-0.045) ng/ml Total Protein (6.4-8.2) gm/dl Albumin (3.4-5.0) gm/dl Globulin (2.5-4.0) gm/dl Albumin/Globulin Ratio (0.9-2) Lipase (73-393) U/L TSH (0.300-4.500) uIu/ml Urine Color Urine Appearance (Clear) Urine pH (4.5-7.5) Ur Specific [place] (1.000-1.030) Urine Protein (Negative) Urine Glucose (UA) (Negative) Urine Ketones (Negative) Urine Blood (Negative) Urine Nitrite (Negative) Urine Bilirubin (Negative) Urine Urobilinogen (Negative) Ur Leukocyte Esterase (Negative) Urine WBC (Auto) (0-5) /hpf Urine RBC (Auto) (0-4) /hpf U Hyaline Cast (Auto) (0-5) /lpf U Epithel Cells (Auto) (0-5) /lpf Urine Bacteria (Auto) (Negative) Diagnostic Findings CTA Neck - negative per STAT-rad CTA Head - occlusion of anterior M2 branch of the left MCA, probably chronic, given the chronic left MCA territorial infarction. There is no other arterial stenosis or occlusion CT Head - large chronic left MCA infarction. No acute findings ECG Additional Comments: The study shows NSR at 98, right axis, ST-T wave abnormalities Code Status & VTE Plan Code Status FULL Critical Care Time Critical Care Time: No (1) UTI (urinary tract infection) Hematuria presence: without hematuria Urinary tract infection type: site unspecified Qualified Code(s): N39.0 - Urinary tract infection, site not specified (2) GERD (gastroesophageal reflux disease) Esophagitis presence: esophagitis presence not specified Qualified Code(s): K21.9 - Gastro-esophageal reflux disease without esophagitis
[2018-08-08] MEDS ORDERED: DOCUSATE SODIUM 100 MG CAP PO PRN (04:03)
[2018-08-08] MEDS ORDERED: ONDANSETRON INJ 2 MG/ML 2 ML VIAL IV PRN (04:03)
[2018-08-08] MEDS ORDERED: POTASSIUM CHLORIDE 20 MEQ TABCR PO ONE (04:30)
[2018-08-08] MEDS ORDERED: MAGNESIUM SULFATE / D5W 1 GM/100 ML BAG IV ONE (04:30)
[2018-08-08 04:50] LABS: Magnesium 2.9 mg/dl (1.8-2.4)
--- NOTE | 2018-08-08 06:46 | CT Scan Report ---
CT head/brain wo con CLINICAL HISTORY: 52 years-old Female with new left sided. Acute left-sided headache TECHNIQUE: Multiple axial CT images of the head were obtained without contrast. A dose lowering tech nique was utilized adhering to the principles of ALARA. COMPARISON: CTA head neck of same day, head CT 10/28/2016. FINDINGS: No acute intracranial hemorrhage, midline shift, intracranial mass, hydrocephalus, acute territorial ischemia or abnormal extra-axial collection. Encephalomalacia related to large left MCA distribution infarct redemonstrated with ex vacuo left lateral ventriculomegaly. Mild background age-related invol utional changes. The calvarium is intact. The paranasal sinuses, mastoid air cells, and middle ear cavities are clear . IMPRESSION: 1. No acute intracranial abnormality. 2. Encephalomalacia related to large left MCA distribution infarct redemonstrated. The above report was generated using voice recognition software. It may contain grammatical, syntax o r spelling errors. Electronically signed by: Hudson Strange M.D. 08/08/2018 6:44 AM
--- NOTE | 2018-08-08 06:53 | XRay Report ---
XR chest 1V portable CLINICAL HISTORY: 52 years-old Female presenting with Chest Pain, history of prior stroke. TECHNIQUE: Portable upright AP view of the chest was obtained. COMPARISON: 07/20/2017. FINDINGS: Cardiomediastinal silhouette normal. No focal opacity. No large effusion or pneumothorax. Several old lower right rib fractures suggested. Osteopenia may be present. Upper abdomen normal. IMPRESSION: 1. No acute cardiopulmonary disease. Electronically signed by: Arcenio Todd M.D. 08/08/2018 6:52 AM
--- NOTE | 2018-08-08 07:32 | CT Scan Report ---
CT ANGIOGRAM OF THE NECK CLINICAL HISTORY: Left-sided weakness. COMPARISON STUDY: MR angiogram of the neck dated 03/24/2006. TECHNIQUE: Following the IV administration of 117 of Optiray 320, CT angiogram of the neck was perfor med from the aortic arch to the skull base. Images are reviewed in the axial, sagittal, and coronal p lanes. 3-D MIPS images are created and assessed. IV contrast was administered without complication. A ll measurements were calculated based on NASCET criteria. A dose lowering technique was utilized adh ering to the principles of ALARA. CT DOSE: 992.97 mGy.cm FINDINGS: Thoracic aorta: Visualized portions of the thoracic aorta are normal in caliber. The aortic arch demo nstrates bovine variant anatomy. Right carotid arterial system: The right common carotid artery is widely patent. There is approximate ly 50% luminal narrowing at the origin of the right internal carotid artery secondary to soft and meghann cified plaque. Remainder of the right internal carotid artery is widely patent. The right external ca rotid artery is clear. Left carotid arterial system: The left common carotid artery is widely patent, as are the left sourcing intern al and external carotid arteries. Soft plaque causes less than 50% luminal narrowing of the carotid b ulb. Vertebral arteries: The vertebral arteries are patent bilaterally noting left-sided dominance. The ri ght vertebral artery is diminutive and terminates as the PICA. Subclavian arteries: The subclavian arteries are patent bilaterally. There is less than 50% focal shannan nosis of the left subclavian artery below the thoracic inlet. Extensive atherosclerotic plaque and ir regularity causes diffuse less than 50% narrowing of the right artery. Intracranial vasculature: The visualized intracranial vessels at the skull base are patent. The basil ar artery is diminutive. Jugular veins: Widely patent bilaterally. Brain parenchyma: There is left MCA territory encephalomalacia consistent with a remote infarct. Lung apices: Paraseptal emphysematous change is present in the upper lobes. Peribronchial thickening is observed. Secretions are noted in the trachea. Soft tissues: The visualized pharyngeal soft tissues are normal in appearance noting angiographic pha se technique. The oropharyngeal airway appears widely patent. A 4 mm low-attenuation nodule is seen i n the right thyroid lobe. The salivary glands are normal in appearance. No cervical lymphadenopathy i s seen. Skeletal structures: The visualized calvarium at the skull base appears intact. The imaged cervical s pine is within normal limits. Sinuses and mastoids: Mild mucosal thickening is seen in the right maxillary antrum. The remaining vi sualized paranasal sinuses are clear. The mastoid air cells are well pneumatized. IMPRESSION: 1. There is approximately 50% stenosis of the origin of the right internal carotid artery secondary s oft plaque. 2. No additional foci of high-grade stenosis are identified. 3. Diffuse atheromatous changes noted in the right subclavian artery. 4. Emphysema. 5. Additional findings as above. Electronically signed by: Ramses Lynch M.D. 08/08/2018 7:30 AM
--- NOTE | 2018-08-08 08:03 | CT Scan Report ---
CT angio head w con CLINICAL HISTORY: 52 years-old Female presenting with new left sided weakness. TECHNIQUE: Multidetector CT angiography of the head was performed after the administration of intrave nous contrast. 3-D volumetric and/or maximum intensity projection (MIP) images were subsequently darell nstructed for review. IV contrast: 1 17 mL of Optiray 320. One or more dose lowering techniques were used consistent with the principles of ALARA (as low as reasonably achievable), including automatic e xposure control, mA or kV adjustment to individual patient size, and/or use of iterative reconstructi on. COMPARISON: MRA head from 2013. CT DOSE (mGy.cm): The estimated cumulative dose is 992.97. FINDINGS: [place] topogram: Unremarkable. Anterior circulation: Atherosclerosis of the cavernous segments of the internal carotid arteries. Int racranial portions of the internal carotid arteries patent to the level of the termini. Anterior cere bral arteries patent. Middle cerebral arteries patent. Anterior communicating artery patent. Posterior circulation: Left dominant vertebral artery. Intradural portions of the vertebral arteries patent. Posterior inferior cerebellar arteries patent. Diminutive caliber basilar artery, which is ot herwise patent. Anterior inferior cerebellar arteries poorly visualized. Superior cerebellar arteries patent. origin of the bilateral posterior cerebellar arteries, which likely accounts for the d iminutive basilar artery. Posterior communicating arteries patent. Dural venous sinuses: Patent. Other: Redemonstration of the old left middle cerebellar artery territory infarct. Calvarium intact. IMPRESSION: 1. No evidence of aneurysm, focal vessel occlusion, or significant stenosis of the intracranial jose eduardo jos eg. 2. Old left MCA infarct. Electronically signed by: Arcenio Todd M.D. 08/08/2018 8:01 AM
[2018-08-08] MEDS: TRIAMCINOLONE ACET 0.1% CR 15 GM TUBE EXT SCH ×3 (09:13→20:52)
[2018-08-08] MEDS: ENOXAPARIN INJ 40 MG/0.4 ML SYR SQ SCH (09:13)
[2018-08-08] MEDS: NYSTATIN OINT 15 GM TUBE EXT SCH ×2 (09:14→20:51)
[2018-08-08] MEDS: CLOPIDOGREL BISULFATE 75 MG TAB PO SCH (09:14)
[2018-08-08 12:17] LABS: BUN Creatinine Ratio 11.8 (10-20); Calcium 8.1 mg/dl (8.5-10.1); Creatinine Clr Calc Pharmacy 119.3 ml/min; Est GFR (African American) 130.7; Est GFR (Non-African American) 112.8; Potassium 3.1 mmol/L (3.5-5.1)
[2018-08-08] MEDS: FOLIC ACID 1 MG TAB PO SCH (13:57)
[2018-08-08] MEDS: POTASSIUM CHLORIDE 10 MEQ TABCR PO SCH ×2 (13:57→20:51)
[2018-08-08] MEDS ORDERED: NSS + 20MEQ KCL 20 MEQ/1,000 ML BAG IV SCH (14:00)
[2018-08-08] MEDS: LACTOBACILLUS ACIDOPHILUS (FLORANEX) TAB PO SCH (18:17)
--- NOTE | 2018-08-08 20:00 | Hospitalist Progress Note ---
Date of Service August 08, 2018 Assessment & Plan (1) UTI (urinary tract infection): Cont rocephin, follow culture. Labs/clinical status -- stable. No sepsis. Present on Admission?: Yes (2) Weakness: In setting of UTI and electrolyte abnormalities. Abx for UTI. Fix low K and low mag. PT, OT. Present on Admission?: Yes (3) Hypokalemia: Severe. Likely due to poor oral intake. Repeat today still low. Replace; repeat BMP am. Present on Admission?: Yes (4) Hypomagnesemia: resolved. Present on Admission?: Yes (5) GERD (gastroesophageal reflux disease): Continue Ranitidine (6) History of CVA (cerebrovascular accident): Left MCA territory stroke in the past w/ resulting right-sided hemiparesis and aphasia. Continue Plavix daily for secondary prevention. PT, OT. (7) Fungal dermatitis: Nystatin ointment BID (8) Folate deficiency: repeat level today borderline low. folic acid 1mg po daily x 30 days. (9) DVT prophylaxis: lovenox daily Subjective patient gives 1-word answers to questions. communication is challenging. however, seems to be comfortable and denies any pain in any location. Review of Systems Respiratory: no dyspnea Cardiovascular: no chest pain Gastrointestinal: no abdominal pain Physical Exam Constitutional: + thin; no acute distress and no altered mental status significant expressive aphasia ENMT: Nose: + dry nasal mucous membranes Respiratory: normal respiratory effort, lungs clear to auscultation Cardiovascular: Rate/Rhythm: regular rate and regular rhythm Heart Sounds: normal S1 and normal S2; no murmur Vessels: posterior tibial pulses present and dorsalis pedis pulses present; no JVD Gastrointestinal (Abdomen): normal bowel sounds, soft, nontender, no hepatosplenomegaly stool RLQ?? Neurologic: right sided hemiparesis with right hand contracture Psychiatric: Orientation: alert Results & Data Vital Signs (Past 12 Hours) Vital Signs Temp Pulse Resp BP Pulse Ox 08/08/18 14:59 36.5 C 86 16 124/89 100 08/08/18 08:21 36.4 C L 74 20 126/89 100 Laboratory Results Laboratory Results - last 24 hr 08/07/18 08/07/18 08/07/18 23:05 23:27 23:27 WBC 8.56 RBC 4.10 L Hgb 13.5 Hct 38.3 MCV 93.4 MCH 32.9 MCHC 35.2 RDW Std Deviation 47.3 H RDW Coeff of Reece 14.4 Plt Count 332 MPV 8.9 Immature Gran % (Auto) 0.1 Neut % (Auto) 48.0 Lymph % (Auto) 44.0 [place] % (Auto) 6.3 Eos % (Auto) 1.4 Baso % (Auto) 0.2 Immature Gran # (Auto) 0.01 Neut # (Auto) 4.10 Lymph # (Auto) 3.77 H [place] # (Auto) 0.54 Eos # (Auto) 0.12 Baso # (Auto) 0.02 PT INR Sodium 139 Potassium 2.2 L* Chloride 97 L Carbon Dioxide 33 H Anion Gap 8.0 BUN 9 Creatinine 0.40 L Est Cr Clr Drug Dosing 117.7 Est GFR ( Amer) 138.8 Est GFR (Non-Af Amer) 119.8 BUN/Creatinine Ratio 22.6 H Glucose 91 Calcium 8.2 L Phosphorus 2.9 Magnesium 1.5 L Total Bilirubin 0.9 Direct Bilirubin 0.4 H AST 32 ALT 20 Alkaline Phosphatase 158 H Troponin I < 0.015 Total Protein 5.4 L Albumin 2.2 L Globulin 3.2 Albumin/Globulin Ratio 0.7 L Lipase 96 Folate TSH 3.300 Specimen Hemolysis Urine Color [place] Urine Appearance Cloudy A Urine pH 5.5 Ur Specific [place] 1.010 Urine Protein Negative Urine Glucose (UA) Negative Urine Ketones Negative Urine Blood Negative Urine Nitrite Positive A Urine Bilirubin Negative Urine Urobilinogen Negative Ur Leukocyte Esterase 2+ H Urine WBC (Auto) 10-30 H Urine RBC (Auto) 0-4 U Hyaline Cast (Auto) 1-5 U Epithel Cells (Auto) 20-30 H Urine Bacteria (Auto) 3+ H 08/07/18 08/08/18 08/08/18 23:27 04:17 11:30 WBC RBC Hgb Hct MCV MCH MCHC RDW Std Deviation RDW Coeff of Reece Plt Count MPV Immature Gran % (Auto) Neut % (Auto) Lymph % (Auto) [place] % (Auto) Eos % (Auto) Baso % (Auto) Immature Gran # (Auto) Neut # (Auto) Lymph # (Auto) [place] # (Auto) Eos # (Auto) Baso # (Auto) PT 10.8 INR 1.1 Sodium 139 Potassium 3.1 L D Chloride 99 Carbon Dioxide 33 H Anion Gap 7.0 BUN 6 L Creatinine 0.48 L Est Cr Clr Drug Dosing 119.3 Est GFR ( Amer) 130.7 Est GFR (Non-Af Amer) 112.8 BUN/Creatinine Ratio 11.8 Glucose 102 H Calcium 8.1 L Phosphorus Magnesium 2.9 H Total Bilirubin Direct Bilirubin AST ALT Alkaline Phosphatase Troponin I Total Protein Albumin Globulin Albumin/Globulin Ratio Lipase Folate TSH Specimen Hemolysis Urine Color Urine Appearance Urine pH Ur Specific [place] Urine Protein Urine Glucose (UA) Urine Ketones Urine Blood Urine Nitrite Urine Bilirubin Urine Urobilinogen Ur Leukocyte Esterase Urine WBC (Auto) Urine RBC (Auto) U Hyaline Cast (Auto) U Epithel Cells (Auto) Urine Bacteria (Auto) 08/08/18 11:30 WBC RBC Hgb Hct MCV MCH MCHC RDW Std Deviation RDW Coeff of Reece Plt Count MPV Immature Gran % (Auto) Neut % (Auto) Lymph % (Auto) [place] % (Auto) Eos % (Auto) Baso % (Auto) Immature Gran # (Auto) Neut # (Auto) Lymph # (Auto) [place] # (Auto) Eos # (Auto) Baso # (Auto) PT INR Sodium Potassium Chloride Carbon Dioxide Anion Gap BUN Creatinine Est Cr Clr Drug Dosing Est GFR ( Amer) Est GFR (Non-Af Amer) BUN/Creatinine Ratio Glucose Calcium Phosphorus Magnesium Total Bilirubin Direct Bilirubin AST ALT Alkaline Phosphatase Troponin I Total Protein Albumin Globulin Albumin/Globulin Ratio Lipase Folate 6.10 TSH Specimen Hemolysis Urine Color Urine Appearance Urine pH Ur Specific [place] Urine Protein Urine Glucose (UA) Urine Ketones Urine Blood Urine Nitrite Urine Bilirubin Urine Urobilinogen Ur Leukocyte Esterase Urine WBC (Auto) Urine RBC (Auto) U Hyaline Cast (Auto) U Epithel Cells (Auto) Urine Bacteria (Auto) (1) UTI (urinary tract infection) Hematuria presence: without hematuria Urinary tract infection type: site unspecified Qualified Code(s): N39.0 - Urinary tract infection, site not specified (2) GERD (gastroesophageal reflux disease) Esophagitis presence: esophagitis presence not specified Qualified Code(s): K21.9 - Gastro-esophageal reflux disease without esophagitis
[2018-08-09] MEDS: ACETAMINOPHEN 325 MG TAB PO PRN ×3 (00:13→21:16)
[2018-08-09] MEDS: cefTRIAXone SODIUM 1,000 MG in DEXTROSE 5% 50 ML IV SCH ×2 (00:14→23:57)
[2018-08-09 07:04] LABS: BUN Creatinine Ratio 10.3 (10-20); Calcium 7.9 mg/dl (8.5-10.1); Creatinine Clr Calc Pharmacy 168.4 ml/min; Est GFR (African American) 146.4; Est GFR (Non-African American) 126.3
[2018-08-09] MEDS: POTASSIUM CHLORIDE 10 MEQ TABCR PO SCH ×2 (08:16→21:12)
[2018-08-09] MEDS: ENOXAPARIN INJ 40 MG/0.4 ML SYR SQ SCH (08:16)
[2018-08-09] MEDS: FOLIC ACID 1 MG TAB PO SCH (08:17)
[2018-08-09] MEDS: TRIAMCINOLONE ACET 0.1% CR 15 GM TUBE EXT SCH ×3 (08:17→21:11)
[2018-08-09] MEDS: LACTOBACILLUS ACIDOPHILUS (FLORANEX) TAB PO SCH ×3 (08:17→18:34)
[2018-08-09] MEDS: NYSTATIN OINT 15 GM TUBE EXT SCH ×2 (08:18→21:11)
[2018-08-09] MEDS: CLOPIDOGREL BISULFATE 75 MG TAB PO SCH (08:18)
--- NOTE | 2018-08-09 20:22 | Hospitalist Progress Note ---
Date of Service August 09, 2018 Assessment & Plan (1) UTI (urinary tract infection): Culture showing e.coli -- sensitivities pending. Cont rocephin, follow final culture result. Labs/clinical status -- stable. No sepsis. (2) Weakness: In setting of UTI and electrolyte abnormalities along with chronic deconditioning. Abx for UTI. low K and low mag resolved. improve her nutrition. PT, OT. Needs placement. (3) Hypokalemia: Severe. Likely due to poor oral intake. resolved. (4) Hypomagnesemia: resolved. (5) GERD (gastroesophageal reflux disease): Continue Ranitidine (6) History of CVA (cerebrovascular accident): Left MCA territory stroke in the past w/ resulting right-sided hemiparesis and aphasia. Continue Plavix daily for secondary prevention. PT, OT. (7) Fungal dermatitis: Nystatin ointment BID (8) Folate deficiency: repeat level borderline low. folic acid 1mg po daily x 30 days. (9) Severe protein-calorie malnutrition: add boost BID add MVI she may have depression - added remeron cannot rule out underlying occult malignancy, etc (10) Depression: start remeron 7.5mg HS this may help appetite as well (11) DVT prophylaxis: lovenox daily left message for Forylan - contact - on 08/09/18 dispo planning for placement Subjective patient awake/alert during the visit she asked for the head of her bed to be raised when asked how she was doing she said "ok" we talked about depression - when asked if she was depressed she shook her head yes she could not tell me how long it has been going on case management spoke with Froylan, significant other. he reports failure to thrive for long time. poor eating. overall just not doing well. I attempted to call Froylan today - no answer, left message. Review of Systems Respiratory: no dyspnea Cardiovascular: no chest pain Gastrointestinal: no abdominal pain, no nausea and no vomiting Physical Exam Constitutional: + thin, + cachectic and + frail appearing; no acute distress and no altered mental status ENMT: external ear and nose normal, oropharynx normal angular cheilitis around corners mouth Respiratory: normal respiratory effort, lungs clear to auscultation Cardiovascular: Rate/Rhythm: regular rate and regular rhythm Heart Sounds: normal S1 and normal S2; no murmur Vessels: posterior tibial pulses present and dorsalis pedis pulses present; no JVD Gastrointestinal (Abdomen): normal bowel sounds, soft, nontender, no h epatosplenomegaly Neurologic: right sided hemiparesis; facial droop - right; expressive aphasia - mild/moderate Psychiatric: Orientation: alert Results & Data Vital Signs (Past 12 Hours) Vital Signs Temp Pulse Resp Pulse Ox 08/09/18 15:21 36.7 C 89 16 99 Laboratory Results Laboratory Results - last 24 hr 08/09/18 06:04 Sodium 141 Potassium 4.0 D Chloride 108 H Carbon Dioxide 27 Anion Gap 6.0 BUN 4 L Creatinine 0.34 L Est Cr Clr Drug Dosing 168.4 Est GFR ( Amer) 146.4 Est GFR (Non-Af Amer) 126.3 BUN/Creatinine Ratio 10.3 Glucose 76 Calcium 7.9 L (1) UTI (urinary tract infection) Hematuria presence: without hematuria Urinary tract infection type: site unspecified Qualified Code(s): N39.0 - Urinary tract infection, site not specified (2) GERD (gastroesophageal reflux disease) Esophagitis presence: esophagitis presence not specified Qualified Code(s): K21.9 - Gastro-esophageal reflux disease without esophagitis (3) Depression Depression Type: unspecified Qualified Code(s): F32.9 - Major depressive disorder, single episode, unspecified
[2018-08-09] MEDS ORDERED: MIRTAZAPINE TAB 15 MG TAB PO SCH (21:00)
[2018-08-09] MEDS ORDERED: SODIUM CHLORIDE 0.9% 500 ML IV ONE (22:16)
[2018-08-10] MEDS: ACETAMINOPHEN 325 MG TAB PO PRN ×2 (06:44→15:24)
[2018-08-10] MEDS: TRIAMCINOLONE ACET 0.1% CR 15 GM TUBE EXT SCH ×2 (08:25→13:13)
[2018-08-10] MEDS: LACTOBACILLUS ACIDOPHILUS (FLORANEX) TAB PO SCH ×2 (08:26→12:12)
[2018-08-10] MEDS: CLOPIDOGREL BISULFATE 75 MG TAB PO SCH (08:26)
[2018-08-10] MEDS: ENOXAPARIN INJ 40 MG/0.4 ML SYR SQ SCH (08:26)
[2018-08-10] MEDS: POTASSIUM CHLORIDE 10 MEQ TABCR PO SCH (08:26)
[2018-08-10] MEDS: FOLIC ACID 1 MG TAB PO SCH (08:26)
[2018-08-10] MEDS: NYSTATIN OINT 15 GM TUBE EXT SCH (08:26)
[2018-08-10] MEDS ORDERED: CEROVITE ADV FORMULA TAB PO SCH (09:00)
[2018-08-10] MEDS ORDERED: cephALEXin 500 MG CAP PO SCH (21:00)
--- NOTE | 2018-08-16 22:38 | Discharge Summary ---
Date of Service date of admission - August 08, 2018 date of discharge - August 10, 2018 Admission HPI Per Admitting Provider Nazia Boyce is a 52yo female with remote history of CVA with right sided weakness and expressive aphasia presenting with failure to thrive and increased weakness. On arrival to the ER she was found to be afebrile, hemodynamically stable, and with electrolyte abnormalities including hypokalemia (K=2.2) and hypomagnesemia (Mg=1.5). Patient with significant expressive aphasia and does not offer much in way of history. She denies pain, SOB. ER Course: Tylenol, Ceftriaxone, magnesium 1gm, KCL 50Meq, NSS 500mL Principal Diagnosis e.coli UTI Discharge Exam Constitutional + thin, + cachectic and + frail appearing; no acute distress and no altered mental status ENMT external ear and nose normal, oropharynx normal Respiratory normal respiratory effort, lungs clear to auscultation Cardiovascular Rate/Rhythm: regular rate and regular rhythm Heart Sounds: normal S1 and normal S2; no murmur Vessels: posterior tibial pulses present and dorsalis pedis pulses present; no JVD Gastrointestinal (Abdomen) normal bowel sounds, soft, nontender, no hepatosplenomegaly Neurologic right-sided hemiplegia; expressive aphasia (mod-severe); mild right-sided facial droop Psychiatric Orientation: alert Discharge Data Allergies Allergy/AdvReac Type Severity Reaction Status Date / Time No Known Allergies Allergy Unknown Verified 08/07/18 23:16 Consultations PT, OT Speech therapy Ordered Studies 1. CT head - IMPRESSION: 1. No acute intracranial abnormality. 2. Encephalomalacia related to large left MCA distribution infarct re demonstrated. 2. CTA head - IMPRESSION: 1. No evidence of aneurysm, focal vessel occlusion, or significant stenosis of the intracranial arteries. 2. Old left MCA infarct. 3. CTA neck - IMPRESSION: 1. There is approximately 50% stenosis of the origin of the right internal carotid artery secondary soft plaque. 2. No additional foci of high-grade stenosis are identified. 3. Diffuse atheromatous changes noted in the right subclavian artery. 4. Emphysema. Hospital Course (1) UTI (urinary tract infection): 2nd to e.coli. Initially received IV rocephin and was transitioned to oral keflex later in the stay to complete 7 days in total of treatment. Never had evidence of sepsis. (2) Weakness: In setting of UTI and electrolyte abnormalities along with chronic deconditioning. Low K and low mag resolved with appropriate replacement. UTI was treated. Attempts to enhance nutrition were done with use of boost, multivitamin, etc. Received PT/OT and rehab was recommended for after discharge. (3) Hypokalemia: Severe. Likely due to poor oral intake prior to the hospital stay. Resolved with IV/PO replacement. (4) Hypomagnesemia: resolved with IV/PO replacement. (5) GERD (gastroesophageal reflux disease): Continue Ranitidine (6) History of CVA (cerebrovascular accident): Left MCA territory stroke in the past w/ resulting right-sided hemiparesis and aphasia. Continue Plavix daily for secondary prevention. PT, OT. (7) Fungal dermatitis: Nystatin ointment BID (8) Folate deficiency: Repeat level during this stay was borderline low. Thus - folic acid 1mg po daily x 30 days. (9) Severe protein-calorie malnutrition: added boost BID added MVI she may have underlying depression - added remeron 7.5mg HS cannot rule out underlying occult malignancy, etc defer additional work-up to the outpatient setting (10) Depression: started remeron 7.5mg HS this may help appetite as well Total Time Total Time Spent Total Time Spent (In Minutes): 45 Total Time Includes: Examination of the Patient, Discharge Planning and Medication Reconciliation Discharge Plan Discharge Items Patient Disposition: Transfer Inpatient Rehab Fac Reason For Visit: WEAKNESS, UTI Discharge Diagnosis: 1. e.coli UTI. 2. weakness due to UTI and severely low potassium. 3. low magnesium. 4. depression. 5. failure to thrive. Discharge Goals: Diagnostic testing and Therapeutic intervention Activity: Resume your previous activity Non-emergency contact: Primary Care Provider Call non-emergency contact if: you have any medication questions, your symptoms worsen, your pain is not controlled and your temperature is above 100.5 Follow-up/Referrals: Pro,Ant Odell MD [Primary Care Provider] - Diet: Regular Diet Texture: Dental soft (bite-sized) Addtl Provider Instructions: From Tr Bateman - hospitalist - Patient was treated for e.coli UTI with several days of IV rocephin. Converted to oral keflex on day of discharge. Has had failure to thrive and weight loss for some time. Uncertain if this is due to inability to eat because of her functional deficits from her stroke vs depression vs underlying occult malignancy vs combination of factors. Mrs Boyce did admit to depression during the stay. She was started on remeron 7.5mg at bedtime for depression and to help promote appetite. Recommend titrating to 15mg in the next 1-2 weeks. Recommend counseling. Consider additional outpatient work-up for her weight loss - mammogram, EGD, colonoscopy, CTs, etc - if desired by patient and/or her family. Repeat BMP and Magnesium level in 3-4 days to ensure stable electrolytes. Follow-up -- see Dr Sprague, PCP, within 1 week of discharge from [facility] Prescriptions: New acetaminophen [Mapap (acetaminophen)] 325 mg Tablet 650 mg PO Q4H PRN (Reason: pain) Qty: 30 RF: 0 mirtazapine 15 mg Tablet 7.5 mg PO HS Qty: 30 RF: 5 enoxaparin 40 mg/0.4 mL Syringe 40 mg subcut Q24H Qty: 14 RF: 0 potassium chloride [Klor-Con M10] 10 mEq Tablet,Er Particles/Crystals 10 meq PO DAILY Qty: 30 RF: 1 Lactobacillus acidoph-L.bulgar [Floranex] 1 million cell Tablet 4 tab PO TIDM 7 Days Qty: 84 RF: 0 folic acid 1 mg Tablet 1 mg PO QAM Qty: 30 RF: 0 Certavite-Antioxidant 18-400 mg-mcg Tablet 1 tab PO QAM Qty: 90 RF: 3 diclofenac sodium [Voltaren] 1 % gel 4 gm TOP QID Qty: 100 RF: 2 Continued clopidogrel 75 mg tablet 75 mg PO DAILY RF: 0 ranitidine HCl 150 mg tablet 150 mg PO BID RF: 0 Changed nystatin 100,000 unit/gram powder 1 applic Topical TID Qty: 45 RF: 0 Discontinued triamcinolone acetonide 0.1 % Cream 1 applic EXT TID Qty: 15 RF: 0 Stand-Alone Forms: [facility] Discharge Orders: Discharge Order (Routine); Ordered 08/10/18 Ordered By: Tr Bateman Skilled Items Patient informed of condition?: Yes DNR: No Discharge Level of Care: Acute rehab Communicable Disease: No Discharge Prognosis: Stable Admission Data Admit Date/Time: 08/08/18 02:50 Attending Provider: Tr Bateman Admit Provider: Angélica Yap Primary Care Provider: Ant Sprague Service: Medical Other Interventions: Discharge Summary Assessment (RN) Last Done: 08/10/18 16:02 Pending Studies at Discharge: No DC Date/Time DO NOT enter until pt leaves facility: 08/10/18 16:40
== END 2018-08-10 16:40 | DRG 689 ==
LOC: ED 21:52 → SUATTDRO 08-08 02:50 → 3E 08-08 02:50
DX: B96.20 Unspecified Escherichia coli [E. coli] as the cause of diseases classified elsewhere; I69.320 Aphasia following cerebral infarction; Z79.899 Other long term (current) drug therapy; Z68.1 Body mass index [BMI] 19.9 or less, adult; K21.9 Gastro-esophageal reflux disease without esophagitis; F32.9 Major depressive disorder, single episode, unspecified; R53.1 Weakness; R62.7 Adult failure to thrive; E43 Unspecified severe protein-calorie malnutrition; E87.6 Hypokalemia; E83.42 Hypomagnesemia; N39.0 Urinary tract infection, site not specified; I69.351 Hemiplegia and hemiparesis following cerebral infarction affecting right dominant side; Z79.01 Long term (current) use of anticoagulants; B36.9 Superficial mycosis, unspecified

== ENCOUNTER 2024-05-07 12:59 | Inpatient (IN) ==
--- NOTE | 2024-05-07 13:38 | Emergency Department Note ---
Impression & Plan Hypokalemia, Cholelithiasis with choledocholithiasis, Acute knee pain ED Provider Note CHIEF COMPLAINT: Flank pain HISTORY OF PRESENTING ILLNESS: Patient is a 58-year-old female who arrives to the emergency department for evaluation of right flank pain. Pt has history of stroke with right sided deficits, altered mental status. She is also reporting right knee pain, however, has full ROM. Pt not able to answer questions appropriately as she has deficits from a previous right-sided CVA. Report was provided to the primary nurse, which stated the patient is having flank pain, and abdominal pain. Primary nurse reports the patient was also sent in for evaluation as he has been is unable to care for the patient appropriately at home. The is in need of placement to a skilled facility for the patient. REVIEW OF SYSTEMS: See HPI for pertinent positives and pertinent negatives. ALLERGIES: See below MEDICATIONS: See below PAST MEDICAL HISTORY: See below PHYSICAL EXAM: VITALS: Vitals are noted on the nurse's note and reviewed by myself. Vital signs stable. GENERAL: 58-year-old female, in no acute distress, nondiaphoretic, cachectic. SKIN: The skin was without rashes, erythema, edema, or bruising. HEAD: Normocephalic atraumatic. HEART: Regular rate and rhythm without murmurs gallops or rubs. LUNGS: Clear to auscultation bilaterally without wheezes, rales or rhonchi. No retractions or accessory muscle use. ABDOMEN: Positive bowel sounds x 4. Soft, TTP epigastrium, with no rebound tenderness or guarding. MUSCULOSKELETAL: Muscle atrophy noted throughout. Left side strength 5/5, right leg appears to be contracted, RUE strength diminished from CVA. NEURO: Patient was alert, aphasia present from previous CVA. DIFFERENTIAL DIAGNOSIS: Appendicitis, infections, diverticulitis, UTI, obstruction, mesenteric ischemia, aortic pathology, inflammatory bowel disease, renal colic, PUD, pancreatitis, biliary pathology, hernia, volvulus, constipation, as well as other pathologies. ED COURSE AND MEDICAL DECISION MAKING: MEDICATIONS GIVEN: 1LNSS, 40meq PO potassium INTERPRETATION OF LABS: I interpreted the labs with full lab results as below in the lab section of this note. Pertinent lab results discussed in the MDM section below. INTERPRETATION OF IMAGING: Imaging studies were interpreted by myself and read by radiology as per the imaging section of this note. CHRONIC MEDICAL/SOCIAL CONDITIONS AFFECTING CARE: Right side deficits from previous CVA MDM SUMMARY: The patient is a 58-year-old female who arrives to the emergency department for evaluation of the above-stated complaint. A saline lock was established, CBC, CMP, urinalysis, lipase were obtained. CBC shows leukocytosis, 14.39, with a stable hemoglobin and hematocrit. CMP shows hypokalemia 3.1, which was repleted with 40 mEq p.o. potassium. Total bili 1.3, alkaline phosphatase 135. Lipase 14. Urinalysis not obtained while patient was in the department. CT imaging of the abdomen and pelvis with IV contrast was obtained which shows cholecystitis with choledocholithiasis. X-ray imaging of the left knee was obtained which per my interpretation shows no acute bony abnormality. Chest x-ray imaging was obtained as well which per my interpretation shows no acute cardiopulmonary process. The patient was provided 1 L normal saline. I spoke with Francie Nowak PA-C with the [facility] hospitalist group, we discussed admission to the hospital for placement upon discharge from detention facility, as well as evaluation by gastroenterology as the patient will likely require ERCP. Francie agreed to evaluate and admit the patient to Dr. Cole's service for further patient workup and care. Please refer to their documentation. DIAGNOSIS: Cholecystitis with Choledocholithiasis, knee pain, hypokalemia The patient's case was discussed with Dr. Masterson, who agreed with my evaluation and treatment plan. The chart was completed utilizing Serviceful Speech voice recognition software. Grammatical errors, random word insertions, pronoun errors, and incomplete sentences are an occasional consequence of this system due to software limitations, ambient noise, and hardware issues. Any formal questions or concerns about the content, text, or information contained within the body of this dictation should be directly addressed to the provider for clarification. Past Med/Surg History Problem List (Updated 05/07/24 @ 22:04 by HEIDI Sainz) Acute knee pain (Acute) Cholelithiasis with choledocholithiasis (Acute) Vitamin D deficiency Depression Fungal dermatitis Weakness (Acute) UTI (urinary tract infection) (Acute) Hypokalemia (Acute) Hypomagnesemia (Acute) Macrocytic anemia Folate deficiency Severe protein-calorie malnutrition Tobacco use GERD (gastroesophageal reflux disease) History of CVA (cerebrovascular accident) Medical History (Updated 05/07/24 @ 22:04 by HEIDI Sainz) GERD (gastroesophageal reflux disease) Expressive aphasia CVA (cerebral vascular accident) Surgical History S/P hysterectomy S/P knee surgery S/P tooth extraction Family History Daughter S/P cholecystectomy Other No pertinent family history in first degree relatives Social History Smoking Status: Unknown if ever smoked Cigarettes Per Day: 30; Second Hand Exposure: Yes; Do You Dip or Chew Tobacco: No; Preferred Language: Singaporean Communication Ability: Impaired Communication Ability Comment: expressive aphasia, unable to answer Service Tech/Welder Required: No Beliefs That Will Affect Care: None marital status: Life Partner Current Living Situation: Spouse current occupational status: disabled Feels Safe at Home: Yes Dental Care, Regularly: No Physical Activity Frequency: Other Seatbelt Use: always Sunscreen Use: No Assistive Devices: Glasses Allergies Allergies Allergy/AdvReac Type Severity Reaction Status Date / Time No Known Allergies Allergy Unknown Verified 05/07/24 16:17 Home Meds Previous Rx's Medication Instructions Recorded cholecalciferol (vitamin D3) 1,250 50,000 unit PO .WEEKLY #12 caps 08/18/20 mcg (50,000 unit) capsule clopidogrel 75 mg tablet 75 mg PO DAILY #90 tabs 09/20/23 mirtazapine 7.5 mg tablet 7.5 mg PO HS 90 days #90 tabs 03/16/24 Results & Data (ED) Vital Signs Vital Signs - 24 hr 05/07/24 13:02 05/07/24 13:02 05/07/24 13:36 Temperature 36.7 C 36.7 C Temperature Source Oral Oral Pulse Rate 103 H 115 H Pulse Rate [Right Finger] 113 H Pulse Rate from SpO2 Sensor 111 H Respiratory Rate 18 18 23 Respiratory Effort / Characteristics Non-Labored Spontaneous Non-Labored Spontaneous Respiratory Depth Normal Normal Respiratory Pattern Regular Regular Blood Pressure 164/103 H Blood Pressure [Left Arm] 164/103 H Blood Pressure Mean 123 Blood Pressure Mean [Left Arm] 123 Blood Pressure Position [Left Arm] Pulse Oximetry 97 97 100 Oxygen Delivery Method Room Air Room Air Sepsis Recent Fever Within 48 Hours No Sepsis New/Unexplained Change in Mental Status No Sepsis Action Taken by Nursing No Action Required 05/07/24 13:53 05/07/24 14:00 05/07/24 14:00 Temperature Temperature Source Pulse Rate 112 H Pulse Rate [Right Finger] Pulse Rate from SpO2 Sensor Respiratory Rate Respiratory Effort / Characteristics Respiratory Depth Respiratory Pattern Blood Pressure 121/95 121/95 Blood Pressure [Left Arm] Blood Pressure Mean 108 108 Blood Pressure Mean [Left Arm] Blood Pressure Position [Left Arm] Pulse Oximetry Oxygen Delivery Method Sepsis Recent Fever Within 48 Hours Sepsis New/Unexplained Change in Mental Status Sepsis Action Taken by Nursing 05/07/24 14:00 05/07/24 14:00 05/07/24 14:03 Temperature Temperature Source Pulse Rate 107 H 103 H Pulse Rate [Right Finger] Pulse Rate from SpO2 Sensor 107 H 104 H Respiratory Rate 17 19 Respiratory Effort / Characteristics Respiratory Depth Respiratory Pattern Blood Pressure 121/95 Blood Pressure [Left Arm] Blood Pressure Mean 108 Blood Pressure Mean [Left Arm] Blood Pressure Position [Left Arm] Pulse Oximetry 95 96 Oxygen Delivery Method Sepsis Recent Fever Within 48 Hours Sepsis New/Unexplained Change in Mental Status Sepsis Action Taken by Nursing 05/07/24 14:30 05/07/24 14:30 05/07/24 14:33 Temperature Temperature Source Pulse Rate 112 H Pulse Rate [Right Finger] Pulse Rate from SpO2 Sensor 110 H Respiratory Rate 15 Respiratory Effort / Characteristics Respiratory Depth Respiratory Pattern Blood Pressure 137/85 137/85 Blood Pressure [Left Arm] Blood Pressure Mean 94 94 Blood Pressure Mean [Left Arm] Blood Pressure Position [Left Arm] Pulse Oximetry 87 L Oxygen Delivery Method Sepsis Recent Fever Within 48 Hours Sepsis New/Unexplained Change in Mental Status Sepsis Action Taken by Nursing 05/07/24 15:00 05/07/24 15:00 05/07/24 15:24 Temperature Temperature Source Pulse Rate 101 H 97 H Pulse Rate [Right Finger] Pulse Rate from SpO2 Sensor 101 H 99 H Respiratory Rate 25 H 22 Respiratory Effort / Characteristics Respiratory Depth Respiratory Pattern Blood Pressure 157/99 H Blood Pressure [Left Arm] Blood Pressure Mean 131 Blood Pressure Mean [Left Arm] Blood Pressure Position [Left Arm] Pulse Oximetry 99 96 Oxygen Delivery Method Sepsis Recent Fever Within 48 Hours Sepsis New/Unexplained Change in Mental Status Sepsis Action Taken by Nursing 05/07/24 15:30 05/07/24 15:30 05/07/24 15:30 Temperature Temperature Source Pulse Rate Pulse Rate [Right Finger] Pulse Rate from SpO2 Sensor Respiratory Rate Respiratory Effort / Characteristics Respiratory Depth Respiratory Pattern Blood Pressure 145/84 H 145/84 H 145/84 H Blood Pressure [Left Arm] Blood Pressure Mean 130 130 130 Blood Pressure Mean [Left Arm] Blood Pressure Position [Left Arm] Pulse Oximetry Oxygen Delivery Method Sepsis Recent Fever Within 48 Hours Sepsis New/Unexplained Change in Mental Status Sepsis Action Taken by Nursing 05/07/24 15:33 05/07/24 15:43 05/07/24 15:45 Temperature Temperature Source Pulse Rate 99 H Pulse Rate [Right Finger] 104 H Pulse Rate from SpO2 Sensor 98 H Respiratory Rate 21 24 Respiratory Effort / Characteristics Spontaneous Respiratory Depth Normal Respiratory Pattern Blood Pressure 114/87 Blood Pressure [Left Arm] 114/87 Blood Pressure Mean 88 Blood Pressure Mean [Left Arm] 96 Blood Pressure Position [Left Arm] Lying Pulse Oximetry 100 96 Oxygen Delivery Method Room Air Sepsis Recent Fever Within 48 Hours Sepsis New/Unexplained Change in Mental Status Sepsis Action Taken by Nursing 05/07/24 15:45 05/07/24 16:00 05/07/24 16:00 Temperature Temperature Source Pulse Rate Pulse Rate [Right Finger] Pulse Rate from SpO2 Sensor Respiratory Rate Respiratory Effort / Characteristics Respiratory Depth Respiratory Pattern Blood Pressure 114/87 158/93 H 158/93 H Blood Pressure [Left Arm] Blood Pressure Mean 88 126 126 Blood Pressure Mean [Left Arm] Blood Pressure Position [Left Arm] Pulse Oximetry Oxygen Delivery Method Sepsis Recent Fever Within 48 Hours Sepsis New/Unexplained Change in Mental Status Sepsis Action Taken by Nursing 05/07/24 16:00 05/07/24 16:33 05/07/24 17:00 Temperature Temperature Source Pulse Rate 99 H 99 H Pulse Rate [Right Finger] Pulse Rate from SpO2 Sensor 102 H 102 H Respiratory Rate 24 23 Respiratory Effort / Characteristics Respiratory Depth Respiratory Pattern Blood Pressure 138/97 Blood Pressure [Left Arm] Blood Pressure Mean 106 Blood Pressure Mean [Left Arm] Blood Pressure Position [Left Arm] Pulse Oximetry 96 94 Oxygen Delivery Method Sepsis Recent Fever Within 48 Hours Sepsis New/Unexplained Change in Mental Status Sepsis Action Taken by Nursing 05/07/24 17:00 05/07/24 17:00 Temperature Temperature Source Pulse Rate 103 H Pulse Rate [Right Finger] Pulse Rate from SpO2 Sensor 102 H Respiratory Rate 25 H Respiratory Effort / Characteristics Respiratory Depth Respiratory Pattern Blood Pressure 138/97 Blood Pressure [Left Arm] Blood Pressure Mean 106 Blood Pressure Mean [Left Arm] Blood Pressure Position [Left Arm] Pulse Oximetry 92 Oxygen Delivery Method Sepsis Recent Fever Within 48 Hours Sepsis New/Unexplained Change in Mental Status Sepsis Action Taken by Long Term Medications Current Medication List: was personally reviewed by me Laboratory Data Attestation: I reviewed the patient's lab results. 05/07/24 13:12 05/07/24 13:12 Lab Results 05/07/24 Range/Units 13:12 WBC 14.39 H (4.8-10.8) K/ul RBC 5.09 (4.20-5.40) M/uL Hgb 15.4 (12.0-16.0) g/dl Hct 44.2 (37.0-47.0) % MCV 86.8 (80.0-100.0) fL MCH 30.3 (25.0-34.0) pg MCHC 34.8 (32.0-36.0) g/dL RDW Std Deviation 39.6 (36.4-46.3) fL RDW Coeff of Reece 12.5 (11.5-14.5) % Plt Count 371 (130-400) K/uL MPV 10.1 (9.4-12.4) fL Immature Gran % (Auto) 0.4 % Neut % (Auto) 67.5 % Lymph % (Auto) 21.6 % Collin % (Auto) 7.9 % Eos % (Auto) 2.1 % Baso % (Auto) 0.5 % Neut # (Auto) 9.71 H (1.40-6.50) K/uL Lymph # (Auto) 3.11 (1.20-3.40) K/uL Collin # (Auto) 1.14 H (0.11-0.59) K/uL Eos # (Auto) 0.30 (0.00-0.50) K/uL Baso # (Auto) 0.07 (0.00-0.20) K/uL Immature Gran # (Auto) 0.06 (0.01-0.20) K/uL Sodium 135 L (136-145) mmol/L Potassium 3.1 L (3.5-5.1) mmol/L Chloride 97 L (98-107) mmol/L Carbon Dioxide 28 (21-32) mmol/L Anion Gap 10 (3-11) BUN 12 (6-23) mg/dl Creatinine 0.67 (0.6-1.2) mg/dl Est Cr Clr Drug Dosing 82.4 ml/min eGFR 101.25 BUN/Creatinine Ratio 17.9 (10-20) Glucose 149 H (70-99(Fasting)) mg/dl Calcium 10.4 H (8.6-10.3) mg/dl Total Bilirubin 1.3 H (0.2-1.0) mg/dl AST 31 (13-39) U/L ALT 26 (7-52) U/L Alkaline Phosphatase 135 H (34-104) U/L Total Protein 7.8 (6.0-8.3) gm/dl Albumin 4.3 (3.4-5.0) gm/dl Globulin 3.5 (2.5-4.0) gm/dl Albumin/Globulin Ratio 1.2 (0.9-2) Lipase 14 (11-82) U/L Administered Medications Acetaminophen (Acetaminophen 325 Mg Tab) 650 mg PO Q4H PRN PRN Reason: pain/fever Stop: 06/06/24 20:13 Last Admin: 05/07/24 21:31 Dose: 650 mg Documented By: UVALDO Sodium Chloride (Nss) 1,000 mls @ 80 mls/hr IV .[id number] ONE Stop: 05/08/24 08:43 Last Admin: 05/07/24 21:30 Dose: 80 mls/hr Documented By: UVALDO Lidocaine (Lidocaine 5% 1 Patch) 1 patch TD HS MACHO Stop: 06/06/24 20:59 Last Admin: 05/07/24 21:30 Dose: 1 patch Documented By: UVALDO Melatonin (Melatonin 3 Mg Tab) 3 mg PO HS PRN PRN Reason: Insomnia Stop: 06/06/24 20:13 Last Admin: 05/07/24 21:31 Dose: 3 mg Documented By: UVALDO Miconazole Nitrate (Miconazole Nitrate Powder 85 Gm) 1 appln EXT BID MACHO Stop: 06/06/24 20:59 Last Admin: 05/07/24 21:31 Dose: 1 appln Documented By: UVALDO Mirtazapine (Mirtazapine Tab 15 Mg Tab) 7.5 mg PO HS MACHO Stop: 06/06/24 20:59 Last Admin: 05/07/24 21:31 Dose: 7.5 mg Documented By: UVALDO Discontinued Medications Bisacodyl (Bisacodyl 5 Mg Tabec) 5 mg PO NOW ONE Stop: 05/07/24 20:15 Last Admin: 05/07/24 21:32 Dose: 5 mg Documented By: UVALDO Sodium Chloride (Nss) 1,000 mls @ 999 mls/hr IV .Q1H1M ONE Stop: 05/07/24 15:13 Last Infusion: 05/07/24 20:07 Dose: Infused Documented By: Admin: 05/07/24 14:43 Dose: 999 mls/hr Documented By: LUC Piperacillin Sod/Tazobactam Sod (Zosyn) 4.5 gm in 100 mls @ 200 mls/hr IV ONE ONE; Protocol Stop: 05/07/24 18:29 Last Infusion: 05/07/24 19:34 Dose: Infused Documented By: ANNE-MARIE Admin: 05/07/24 18:05 Dose: 200 mls/hr Documented By: LEIGH ANN Ioversol (Optiray 320 100ml) 93 ml IV ONCE ONE Stop: 05/07/24 15:54 Last Admin: 05/07/24 15:54 Dose: 93 ml Documented By: ALICIA Potassium Chloride (Potassium Chloride Crtab 20 Meq Tabcr) 40 meq PO NOW STA Stop: 05/07/24 14:45 Last Admin: 05/07/24 16:09 Dose: 40 meq Documented By: LEIGH ANN Imaging Data Attestation: I personally reviewed and interpreted this imaging study as follows: Radiologist's Impression: Abdomen/Pelvis CT 05/07/24 14:13 EXAMINATION: CT of the abdomen and pelvis performed after the administration of IV contrast TECHNIQUE: Helical CT images from the lung bases through the symphysis pubis were obtained with contrast. Coronal and sagittal reformatted images were generated at a workstation for further assessment. Dose reduction techniques were achieved by using automatic exposure control and/or adjustment of mA and/or kV according to patient size and/or use of iterative reconstruction technique. COMPARISON: 02/02/2018 HISTORY: Abdominal pain FINDINGS: Lower chest: No consolidation. No pleural effusion or pneumothorax. Liver: A small low-density lesion near the dome of the liver in the right hepatic lobe appears to have been present since at least 2018, likely a cyst or hemangioma. No suspicious liver lesions. Portal veins appear patent. Gallbladder: There is scattered laying calcified gallstones dependently and within the neck of the gallbladder. There are also numerous small stones extending along the length of the common bile duct. There is no significant common bile duct dilation identified. There is mild intrahepatic biliary duct dilatation. Spleen: Normal size. Pancreas: No suspicious pancreatic lesions. The pancreatic duct is not dilated. Adrenal glands: No adrenal nodules. Kidneys: No hydronephrosis or obstructing renal stones. Bladder / Pelvic organs: There is mild wall thickening, mucosal hyperenhancement, and inflammatory fat stranding of the urinary bladder, which may be seen with cystitis.. Bowel: No bowel obstruction. No abnormal bowel wall thickening. The appendix is unremarkable. Lymph nodes: No retroperitoneal, mesenteric, or pelvic lymphadenopathy. Peritoneum / Retroperitoneum: No free fluid or air within the abdomen. Vessels: No infrarenal aortic aneurysm. Heavy aortoiliac calcified and noncalcified atherosclerosis. Bones and soft tissues: No suspicious lesion in the bones. IMPRESSION: There is cholelithiasis, as well as choledocholithiasis. Numerous small stones extend along the length of the CBD, without evidence for significant extrahepatic bile duct dilation. There is mild intrahepatic biliary ductal dilatation. Electronically signed by Harley Baron 05-07-2024 4:23 PM Chest X-Ray 05/07/24 14:13 XR chest 1V portable CLINICAL HISTORY: pain COMPARISON STUDY: 08/07/2018 FINDINGS: There is cardiomegaly without pulmonary vascular congestion. No effusion, consolidation, or pneumothorax. IMPRESSION: No acute findings. ACT 112: Negative or not required by law. Electronically signed by: Óscar Davenport M.D. 05/07/2024 3:13 PM Knee X-Ray 05/07/24 14:16 XR knee LT 1 or 2V routine CLINICAL HISTORY: pain COMPARISON: None FINDINGS: There is prior ACL repair. There is severe joint space narrowing with osteophytosis. No fracture or dislocation. Trace joint effusion. IMPRESSION: Severe osteoarthritis. ACT 112: Negative or not required by law. Electronically signed by: Óscar Davenport M.D. 05/07/2024 3:14 PM Discharge Plan Visit Data Chief Complaint: Flank Pain Stated Complaint: Right side pain ED Provider: Yosef Masterson ED Midlevel Provider: Leanne Zapata Discharge Problem: Hypokalemia, Cholelithiasis with choledocholithiasis, Acute knee pain Patient Disposition: Admitted As Inpatient Discharge Instructions Interventions: ED Discharge Assessment Last Done: 05/07/24 19:49
[2024-05-07 14:34] LABS: Basophils # (auto) 0.07 K/uL (0.00-0.20); Basophils % (auto) 0.5 %; Eosinophils % (auto) 2.1 %; Hematocrit (blood only) 44.2 % (37.0-47.0); Hemoglobin 15.4 g/dl (12.0-16.0); Immature Granulocytes # (auto) 0.06 K/uL (0.01-0.20); Immature Granulocytes % (auto) 0.4 %; Lymphocytes # (auto) 3.11 K/uL (1.20-3.40); Lymphocytes % (auto) 21.6 %; Mean Corpuscular Hemoglobin 30.3 pg (25.0-34.0); Mean Corpuscular Hgb Conc 34.8 g/dL (32.0-36.0); Mean Corpuscular Volume 86.8 fL (80.0-100.0); Mean Platelet Volume 10.1 fL (9.4-12.4); Monocytes # (auto) 1.14 K/uL (0.11-0.59); Monocytes % (auto) 7.9 %; Neutrophils # (auto) 9.71 K/uL (1.40-6.50); Neutrophils % (auto) 67.5 %; Platelet Count 371 K/uL (130-400); RDW Coefficient of Variation 12.5 % (11.5-14.5); RDW Standard Deviation 39.6 fL (36.4-46.3); Red Blood Count 5.09 M/uL (4.20-5.40); White Blood Count 14.39 K/ul (4.8-10.8)
[2024-05-07 14:40] LABS: Albumin Globulin Ratio 1.2 (0.9-2); Albumin Level 4.3 gm/dl (3.4-5.0); BUN Creatinine Ratio 17.9 (10-20); Bilirubin,Total 1.3 mg/dl (0.2-1.0); Calcium 10.4 mg/dl (8.6-10.3); Creatinine Clr Calc Pharmacy 82.4 ml/min; Globulin 3.5 gm/dl (2.5-4.0); Potassium 3.1 mmol/L (3.5-5.1); Total Protein 7.8 gm/dl (6.0-8.3)
[2024-05-07] MEDS: SODIUM CHLORIDE 0.9% 1,000 ML IV ONE ×2 (14:43→21:30)
--- NOTE | 2024-05-07 15:15 | XRay Report ---
XR chest 1V portable CLINICAL HISTORY: pain COMPARISON STUDY: 08/07/2018 FINDINGS: There is cardiomegaly without pulmonary vascular congestion. No effusion, consolidation, or pneumothorax. IMPRESSION: No acute findings. ACT 112: Negative or not required by law. Electronically signed by: Óscar Davenport M.D. 05/07/2024 3:13 PM
--- NOTE | 2024-05-07 15:15 | XRay Report ---
XR knee LT 1 or 2V routine CLINICAL HISTORY: pain COMPARISON: None FINDINGS: There is prior ACL repair. There is severe joint space narrowing with osteophytosis. No fr acture or dislocation. Trace joint effusion. IMPRESSION: Severe osteoarthritis. ACT 112: Negative or not required by law. Electronically signed by: Óscar Davenport M.D. 05/07/2024 3:14 PM
[2024-05-07] MEDS: OPTIRAY 320 100ml IV ONE (15:54)
[2024-05-07] MEDS: POTASSIUM CHLORIDE CRTAB 20 MEQ TABCR PO STA (16:09)
--- NOTE | 2024-05-07 16:23 | CT Scan Report ---
EXAMINATION: CT of the abdomen and pelvis performed after the administration of IV contrast TECHNIQUE: Helical CT images from the lung bases through the symphysis pubis were obtained with contrast. Coronal and sagittal reformatted images were generated at a workstation for further assessment. Dose reduction techniques were achieved by using automatic exposure control and/or adjustment of mA and/or kV according to patient size and/or use of iterative reconstruction technique. COMPARISON: 02/02/2018 HISTORY: Abdominal pain FINDINGS: Lower chest: No consolidation. No pleural effusion or pneumothorax. Liver: A small low-density lesion near the dome of the liver in the right hepatic lobe appears to have been present since at least 2018, likely a cyst or hemangioma. No suspicious liver lesions. Portal veins appear patent. Gallbladder: There is scattered laying calcified gallstones dependently and within the neck of the gallbladder. There are also numerous small stones extending along the length of the common bile duct. There is no significant common bile duct dilation identified. There is mild intrahepatic biliary duct dilatation. Spleen: Normal size. Pancreas: No suspicious pancreatic lesions. The pancreatic duct is not dilated. Adrenal glands: No adrenal nodules. Kidneys: No hydronephrosis or obstructing renal stones. Bladder / Pelvic organs: There is mild wall thickening, mucosal hyperenhancement, and inflammatory fat stranding of the urinary bladder, which may be seen with cystitis.. Bowel: No bowel obstruction. No abnormal bowel wall thickening. The appendix is unremarkable. Lymph nodes: No retroperitoneal, mesenteric, or pelvic lymphadenopathy. Peritoneum / Retroperitoneum: No free fluid or air within the abdomen. Vessels: No infrarenal aortic aneurysm. Heavy aortoiliac calcified and noncalcified atherosclerosis. Bones and soft tissues: No suspicious lesion in the bones. IMPRESSION: There is cholelithiasis, as well as choledocholithiasis. Numerous small stones extend along the length of the CBD, without evidence for significant extrahepatic bile duct dilation. There is mild intrahepatic biliary ductal dilatation. Electronically signed by Harley Baron 05-07-2024 4:23 PM
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
[2024-05-07] MEDS: PIPERACILLIN/TAZOBACTAM 4.5 GM/100 ML BAG IV ONE (18:05)
[2024-05-07 19:01] LABS: Appearance Urine Clear (Clear); Bacteria Urine Automated 4+ (None Seen); Bilirubin Urine Negative (Negative); Blood Urine Trace (Negative); Cast Urine Automated 0-2 /lpf (0-2); Color Urine Yellow; Epithelial Cell Urine Auto 0-2 /hpf (0-2); Glucose Urine UA Negative (Negative); Ketones Urine Negative (Negative); Leukocyte Esterase Urine 1+ (Negative); Nitrite Urine Positive (Negative); Protein Urine Trace (Negative); Specific Gravity Urine > 1.045 (1.000-1.030); Urobilinogen Urine Negative (Negative); WBC Urine Automated >50 /hpf (0-5)
[2024-05-07] MEDS ORDERED: ONDANSETRON INJ 2 MG/ML 2 ML VIAL IV PRN (20:14)
[2024-05-07] MEDS ORDERED: MAGNESIUM HYDROXIDE SUSP 30 ML UDC PO PRN (20:14)
[2024-05-07] MEDS ORDERED: ALUMINUM/MAGNESIUM SUSP 30 ML UDC PO PRN (20:14)
[2024-05-07] MEDS ORDERED: POLYETHYLENE (MIRALAX) 17 GM PACK PO PRN (20:14)
[2024-05-07] MEDS: LIDOCAINE 5% 1 PATCH TD SCH (21:30)
[2024-05-07] MEDS: ACETAMINOPHEN 325 MG TAB PO PRN (21:31)
[2024-05-07] MEDS: MICONAZOLE NITRATE POWDER 85 GM EXT SCH (21:31)
[2024-05-07] MEDS: MELATONIN 3 MG TAB PO PRN (21:31)
[2024-05-07] MEDS: MIRTAZAPINE TAB 15 MG TAB PO SCH (21:31)
[2024-05-07] MEDS: bisacodyL 5 MG TABEC PO ONE (21:32)
[2024-05-08] MEDS: PIPERACILLIN/TAZOBACTAM 4.5 GM/100 ML BAG IV SCH
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
[2024-05-08 09:56] LABS: Hematocrit (blood only) 38.3 % (37.0-47.0); Hemoglobin 13.2 g/dl (12.0-16.0); Mean Corpuscular Hemoglobin 30.3 pg (25.0-34.0); Mean Corpuscular Hgb Conc 34.5 g/dL (32.0-36.0); Mean Platelet Volume 10.1 fL (9.4-12.4); Platelet Count 290 K/uL (130-400); RDW Coefficient of Variation 12.9 % (11.5-14.5); RDW Standard Deviation 41.5 fL (36.4-46.3); Red Blood Count 4.35 M/uL (4.20-5.40); White Blood Count 10.82 K/ul (4.8-10.8)
--- NOTE | 2024-05-08 10:06 | Gastrointestinal Consultation ---
Date of Consultation May 08, 2024 Assessment & Plan (1) Cholelithiasis with choledocholithiasis: 58 year old female with history of CVA w/ R sided deficits and aphasia, depression, and chronic knee pain, GERD, fungal dermatitis, malnutrition - GI asked to evaluate as imaging revealed CBD stones. Discussed with partner, Froylan, over the phone, in agreement if ERCP is indicated this admission he would consent - Trend LFTs - May continue clear liquids - Hold Plavix - ERCP timing to be determined - Likely mid-week - Defer general surgery consultation to primary team - Defer management of joint discomfort to primary team I spent a total of 60 minutes on the date of service in review of patient's re cord, and previously obtained information in person and appropriate medical visit, discussion and education of plan, with patient and/or caregiver, placing orders for tests/referral/procedures as medically necessary and documentation of pertinent clinical information in patient's medical records for their visit today. Supervising Physician Co-Signing Physician Notes I saw and examined this patient with our nurse practitioner and agree with her assessment and plan. Admitted for right knee pain. CT scan showed calcified gallstones in the gallbladder and common bile duct. Difficult to assess whether she has any significant abdominal pain consistent with biliary colic in light of her aphasia and limited ability to communicate. LFTs are mildly elevated. In light of the findings on CT scan I believe it is reasonable to proceed with ERCP and stone extraction. Will discuss with family and power of privacy attorney and if they agree to have it done while she is here in the hospital we will plan to do it at the end of the week when she has been off Plavix for several days. History of Present Illness Reason for Consultation: Choledocholithias - ERCP? Dr. Perez on 05/08 Requesting Physician: Chris Cole MD Attending Physician: Chris Cole MD History of Present Illness 58 year old female with history of CVA w/ R sided deficits and aphasia, depression, and chronic knee pain, GERD, fungal dermatitis, malnutrition and others below admitted through the ED on 05/07 with knee pain - GI was asked to evaluate as imaging revealed CBD stones. Pt was seen and evaluated, chart reviewed. No family at bedside to aid in history. Due to her aphasia, history is limited. I was able to discuss the case with her partner, Froylan, over the phone aroud 1000. Tbili 1.3 AST 31 ALT 26 ALKP 135 CTAP 2024:There is cholelithiasis, as well as choledocholithiasis. Numerous small stones extend along the length of the CBD, without evidence for significant extrahepatic bile duct dilation. There is mild intrahepatic biliary ductal dilatation. Allergies Allergy/AdvReac Type Severity Reaction Status Date / Time No Known Allergies Allergy Unknown Verified 05/07/24 16:17 Home Medications Medication Instructions Recorded Confirmed Type cholecalciferol (vitamin D3) 1,250 50,000 unit PO .WEEKLY #12 caps 08/18/20 05/07/24 Rx mcg (50,000 unit) capsule clopidogrel 75 mg tablet 75 mg PO DAILY #90 tabs 09/20/23 05/07/24 Rx mirtazapine 7.5 mg tablet 7.5 mg PO HS 90 days #90 tabs 03/16/24 05/07/24 Rx Patient History Medical History (Updated 05/07/24 @ 22:04 by HEIDI Sainz) GERD (gastroesophageal reflux disease) Expressive aphasia CVA (cerebral vascular accident) Surgical History S/P hysterectomy S/P knee surgery S/P tooth extraction Family History Daughter S/P cholecystectomy Other No pertinent family history in first degree relatives Social History Smoking Status: Unknown if ever smoked Cigarettes Per Day: 30; Second Hand Exposure: Yes; Do You Dip or Chew Tobacco: No; Preferred Language: Ukrainian Communication Ability: Impaired Communication Ability Comment: expressive aphasia, unable to answer 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 Physical Exam Constitutional: WD/WN, vitals as above Respiratory: normal respiratory effort Cardiovascular: Rate/Rhythm: regular rate Gastrointestinal (Abdomen): normal bowel sounds, soft, nontender, no hepatosplenomegaly Skin: no rashes, warm and dry Results & Data Vital Signs (Past 12 Hours) Vital Signs Temp Pulse Resp BP Pulse Ox O2 Del Method 05/08/24 07:20 98.1 F 85 16 114/71 99 Room Air PG Care Time/CCT Total # of Minutes Spent Total Time Spent with Patient: Total time spent is greater than 50% in coordination of care (as documented) at patient's floor/unit and/or counseling patient: Coding Level of Care Code 55365 INT INP/OBS CARE MIN Diagnoses Cholelithiasis with choledocholithiasis K80.70
[2024-05-08 10:15] LABS: Albumin Globulin Ratio 1.2 (0.9-2); Albumin Level 3.6 gm/dl (3.4-5.0); BUN Creatinine Ratio 14.5 (10-20); Calcium 9.2 mg/dl (8.6-10.3); Potassium 3.6 mmol/L (3.5-5.1); Total Protein 6.6 gm/dl (6.0-8.3); Uric Acid 3.5 mg/dl (2.6-7.2)
--- NOTE | 2024-05-08 11:20 | XRay Report ---
XR knee RT 1 or 2V routine CLINICAL HISTORY: Right knee pain. COMPARISON: None FINDINGS: The patient was unable to extend her right knee. No fractures are identified. There is ost eopenia. There are no osseous lesions. There is no evidence for a joint effusion. There are mild dege nerative changes within the right knee. IMPRESSION: 1. No fractures within the right knee. No joint effusion. 2. Osteopenia. 3. Mild degenerative changes within the right knee. ACT 112: Negative or not required by law. Electronically signed by: Cristhian Medina M.D. 05/08/2024 11:19 AM
[2024-05-08] MEDS: MoRPHine SULFATE 2 MG/ML CARP IV PRN (13:32)
--- NOTE | 2024-05-08 19:06 | Billing Data ---
Date of Service May 08, 2024 Coding Level of Care Code 66920 SUB INP/OBS CARE
[2024-05-08] MEDS: DICLOFENAC SOD 1% GEL 100 GM TUBE EXT SCH (21:16)
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
[2024-05-09 07:21] LABS: Hematocrit (blood only) 35.5 % (37.0-47.0); Hemoglobin 12.1 g/dl (12.0-16.0); Mean Corpuscular Hgb Conc 34.1 g/dL (32.0-36.0); Mean Corpuscular Volume 88.1 fL (80.0-100.0); Mean Platelet Volume 9.6 fL (9.4-12.4); Platelet Count 265 K/uL (130-400); RDW Coefficient of Variation 12.6 % (11.5-14.5); RDW Standard Deviation 41.2 fL (36.4-46.3); Red Blood Count 4.03 M/uL (4.20-5.40); White Blood Count 9.53 K/ul (4.8-10.8)
[2024-05-09 07:39] LABS: Albumin Globulin Ratio 1.1 (0.9-2); Albumin Level 3.2 gm/dl (3.4-5.0); BUN Creatinine Ratio 11.8 (10-20); Bilirubin,Total 0.7 mg/dl (0.2-1.0); Calcium 8.5 mg/dl (8.6-10.3); Creatinine Clr Calc Pharmacy 108.2 ml/min; Globulin 2.8 gm/dl (2.5-4.0); Potassium 3.5 mmol/L (3.5-5.1)
--- NOTE | 2024-05-09 09:03 | Gastroenterology Progress Note ---
Date of Service May 09, 2024 Assessment & Plan (1) Cholelithiasis with choledocholithiasis: Plan: 58 year old female with history of CVA w/ R sided deficits and aphasia, depression, and chronic knee pain, GERD, fungal dermatitis, malnutrition - GI asked to evaluate as imaging revealed CBD stones. Discussed with partner, Froylan, over the phone, in agreement if ERCP is indicated this admission he would consent - NPO aftermidnight - ERCP 05/10/24 - Defer general surgery consultation to primary team - Defer management of joint discomfort to primary team We appreciate assistance in the management of any serological abnormality and corrections to include: hemoglobin >7, INR <2, platelets >50,000, potassium levels >3.5 but <5.3, and sodium levels within 5 points of the reference range prior to endoscopic evaluation. Admission and Anticipated Discharge Date Admission Date: May 07, 2024 Supervising Physician Co-Signing Physician Notes I saw and examined this patient with our nurse practitioner and agree with her assessment and plan. Abdominal pain abdominal exam benign. Liver enzymes normalized. In light of choledocholithiasis seen on imaging we will proceed with ERCP in a.m. Subjective Pt was seen and evaluated, chart reviewed. Reports ongoing knee pain. No clear indication she is having abdominal pain. Review of Systems Review of Systems: All other findings negative except as noted in HPI. Physical Exam Constitutional: WD/WN, vitals as above Respiratory: normal respiratory effort Cardiovascular: RRR, no murmur, no edema Gastrointestinal (Abdomen): normal bowel sounds, soft, nontender, no hepatosplenomegaly Skin: no rashes, warm and dry Results & Data Results & Data Laboratory Results 05/09/24 05/08/24 Range/Units 07:01 09:23 WBC 9.53 10.82 H (4.8-10.8) K/ul RBC 4.03 L 4.35 (4.20-5.40) M/uL Hgb 12.1 13.2 (12.0-16.0) g/dl Hct 35.5 L 38.3 (37.0-47.0) % MCV 88.1 88.0 (80.0-100.0) fL MCH 30.0 30.3 (25.0-34.0) pg MCHC 34.1 34.5 (32.0-36.0) g/dL RDW Std Deviation 41.2 41.5 (36.4-46.3) fL RDW Coeff of Reece 12.6 12.9 (11.5-14.5) % Plt Count 265 290 (130-400) K/uL MPV 9.6 10.1 (9.4-12.4) fL Sodium 139 136 (136-145) mmol/L Potassium 3.5 3.6 (3.5-5.1) mmol/L Chloride 108 H 109 H (98-107) mmol/L Carbon Dioxide 25 24 (21-32) mmol/L Anion Gap 6 3 (3-11) BUN 6 9 (6-23) mg/dl Creatinine 0.51 L 0.62 (0.6-1.2) mg/dl Est Cr Clr Drug Dosing 108.2 89.0 ml/min eGFR 108.13 103.16 BUN/Creatinine Ratio 11.8 14.5 (10-20) Glucose 88 119 H (70-99(Fasting)) mg/dl Uric Acid 3.5 (2.6-7.2) mg/dl Calcium 8.5 L 9.2 (8.6-10.3) mg/dl Total Bilirubin 0.7 1.0 (0.2-1.0) mg/dl AST 16 16 (13-39) U/L ALT 12 16 (7-52) U/L Alkaline Phosphatase 92 104 (34-104) U/L Total Protein 6.0 6.6 (6.0-8.3) gm/dl Albumin 3.2 L 3.6 (3.4-5.0) gm/dl Globulin 2.8 3.0 (2.5-4.0) gm/dl Albumin/Globulin Ratio 1.1 1.2 (0.9-2) Lipase 13 (11-82) U/L Vitamin B12 245 (180-914) pg/ml PG Care Time/CCT Total # of Minutes Spent Total Time Spent with Patient: Total time spent is greater than 50% in coordination of care (as documented) at patient's floor/unit and/or counseling patient: Coding Level of Care Code None Diagnoses Cholelithiasis with choledocholithiasis K80.70
[2024-05-09] MEDS: CLOTRIMAZOLE 1% CR 15 GM TUBE EXT ONE (10:40)
--- NOTE | 2024-05-09 17:15 | Billing Data ---
Date of Service May 09, 2024 Coding Level of Care Code 45681 SUB INP/OBS CARE
[2024-05-09] MEDS: NYSTATIN POWDER 15GM BTL EXT SCH (20:43)
[2024-05-10 06:37] LABS: Hematocrit (blood only) 35.6 % (37.0-47.0); Hemoglobin 12.2 g/dl (12.0-16.0); Mean Corpuscular Hemoglobin 30.5 pg (25.0-34.0); Mean Corpuscular Hgb Conc 34.3 g/dL (32.0-36.0); Mean Platelet Volume 10.1 fL (9.4-12.4); Platelet Count 247 K/uL (130-400); RDW Coefficient of Variation 12.5 % (11.5-14.5); RDW Standard Deviation 41.1 fL (36.4-46.3); White Blood Count 6.82 K/ul (4.8-10.8)
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
[2024-05-10 07:04] LABS: Albumin Globulin Ratio 1.2 (0.9-2); Albumin Level 3.2 gm/dl (3.4-5.0); BUN Creatinine Ratio 11.1 (10-20); Bilirubin,Total 3.3 mg/dl (0.2-1.0); Calcium 8.6 mg/dl (8.6-10.3); Creatinine Clr Calc Pharmacy 102.2 ml/min; Globulin 2.6 gm/dl (2.5-4.0); Potassium 3.3 mmol/L (3.5-5.1); Total Protein 5.8 gm/dl (6.0-8.3)
--- NOTE | 2024-05-10 08:55 | Gastroenterology Progress Note ---
Date of Service May 10, 2024 Assessment & Plan (1) Cholelithiasis with choledocholithiasis: Plan: 58 year old female with history of CVA w/ R sided deficits and aphasia, depression, and chronic knee pain, GERD, fungal dermatitis, malnutrition - GI asked to evaluate as imaging revealed CBD stones. Discussed with partner, Froylan, over the phone earlier this week, in agreement if ERCP is indicated this admission he would consent. Waiting phone call back from Froylan 05/10/24 for consent, - NPO - ERCP 05/10/24 - Continue to hold Plavix - Defer general surgery consultation to primary team - Defer management of joint discomfort to primary team We appreciate assistance in the management of any serological abnormality and corrections to include: hemoglobin >7, INR <2, platelets >50,000, potassium levels >3.5 but <5.3, and sodium levels within 5 points of the reference range prior to endoscopic evaluation. Thank you for allowing us to participate in the care of this patient. Please call with any acute changes, questions or concerns. Please see addendum below with additional recommendation from my supervising physician. Admission and Anticipated Discharge Date Admission Date: May 07, 2024 Supervising Physician Co-Signing Physician Notes I saw and examined this patient with our nurse practitioner and agree with her assessment and plan. LFTs elevated today consistent with choledocholithiasis. No signs of cholangitis. Will proceed with ERCP today. Subjective Pt was seen and evaluated, chart reviewed. Reports ongoing knee pain. No abd pain. Called Froylan HUFFMAN, no answer. Tbili 3.3 AST 77 ALT 50 ALKP 140 Review of Systems Review of Systems: All other findings negative except as noted in HPI. Physical Exam Constitutional: WD/WN, vitals as above Respiratory: normal respiratory effort, lungs clear to auscultation Cardiovascular: RRR, no murmur, no edema Gastrointestinal (Abdomen): normal bowel sounds, soft, nontender, no hepatosplenomegaly Skin: no rashes, warm and dry Results & Data Results & Data Vital Signs (Past 12 Hours) Vital Signs Temp Pulse Resp BP Pulse Ox O2 Del Method 05/10/24 07:42 97.9 F 64 18 112/79 98 Room Air Laboratory Results 05/10/24 Range/Units 06:00 WBC 6.82 (4.8-10.8) K/ul RBC 4.00 L (4.20-5.40) M/uL Hgb 12.2 (12.0-16.0) g/dl Hct 35.6 L (37.0-47.0) % MCV 89.0 (80.0-100.0) fL MCH 30.5 (25.0-34.0) pg MCHC 34.3 (32.0-36.0) g/dL RDW Std Deviation 41.1 (36.4-46.3) fL RDW Coeff of Reece 12.5 (11.5-14.5) % Plt Count 247 (130-400) K/uL MPV 10.1 (9.4-12.4) fL Sodium 140 (136-145) mmol/L Potassium 3.3 L (3.5-5.1) mmol/L Chloride 108 H (98-107) mmol/L Carbon Dioxide 24 (21-32) mmol/L Anion Gap 8 (3-11) BUN 6 (6-23) mg/dl Creatinine 0.54 L (0.6-1.2) mg/dl Est Cr Clr Drug Dosing 102.2 ml/min eGFR 106.65 BUN/Creatinine Ratio 11.1 (10-20) Glucose 82 (70-99(Fasting)) mg/dl Calcium 8.6 (8.6-10.3) mg/dl Total Bilirubin 3.3 H D (0.2-1.0) mg/dl AST 77 H (13-39) U/L ALT 50 (7-52) U/L Alkaline Phosphatase 140 H (34-104) U/L Total Protein 5.8 L (6.0-8.3) gm/dl Albumin 3.2 L (3.4-5.0) gm/dl Globulin 2.6 (2.5-4.0) gm/dl Albumin/Globulin Ratio 1.2 (0.9-2) PG Care Time/CCT Total # of Minutes Spent Total Time Spent with Patient: Total time spent is greater than 50% in coordination of care (as documented) at patient's floor/unit and/or counseling patient: Coding Level of Care Code None Diagnoses Cholelithiasis with choledocholithiasis K80.70
[2024-05-10] MEDS: POTASSIUM CHLORIDE / WTR 10 MEQ/100 ML PLCT IV SCH (09:12)
[2024-05-10 11:18] LABS: Bilirubin Direct 1.9 mg/dl (0-0.2)
[2024-05-10] MEDS: SODIUM CHLORIDE 0.9% 500 ML IV SCH (11:47)
[2024-05-10] MEDS ORDERED: MIDAZOLAM HCL 1 MG/ML 2ML VIAL ONE (12:51)
[2024-05-10] MEDS ORDERED: fentaNYL citrate PF 100 MCG/2 ML VIAL ONE (12:51)
[2024-05-10] MEDS ORDERED: DEXAMETHASONE SOD INJ 4 MG/ML VIAL ONE (12:51)
[2024-05-10] MEDS ORDERED: ONDANSETRON INJ 2 MG/ML 2 ML VIAL ONE (12:51)
[2024-05-10] MEDS ORDERED: LIDOCAINE 2% 2 ML VIAL/AMP(20MG/ML) INFIL ONE (12:51)
[2024-05-10] MEDS ORDERED: PROPOFOL IV EMULSION 10 MG/ML 20 ML VIAL IV ONE (12:51)
[2024-05-10] MEDS ORDERED: ROCURONIUM BROMIDE 10 MG/ML 5 ML VIAL IV ONE (12:53)
[2024-05-10] MEDS ORDERED: ONDANSETRON INJ 2 MG/ML 2 ML VIAL IV PRN (13:25)
[2024-05-10] MEDS ORDERED: fentaNYL citrate PF 100 MCG/2 ML VIAL IV PRN (13:25)
[2024-05-10] MEDS ORDERED: HYDROmorphone INJ 1 MG/ML SYRINGE IV PRN (13:25)
[2024-05-10] MEDS ORDERED: ATROPINE SULFATE 0.1 MG/ML 10ML SYR IV PRN (13:25)
[2024-05-10] MEDS ORDERED: ePHEDrine sulfate 50 MG/ML AMP IV PRN (13:25)
--- NOTE | 2024-05-10 13:29 | Anesthesiology Consultation ---
Date of Service May 10, 2024 Assessment & Plan Chart Review Chart Review: Acceptable Risk for Surgery Consults Requested none ASA ASA3 Proposed Anesthesia Anesthesia Type: General History Surgery Operation Date: 05/10/24 13:30 Proposed Procedures p Endoscopic Retrograde Cholangiopancreatogram - Luis Perez MD Height/Weight Height: 5 ft 5 in Weight: 65.6 kg Allergies Allergy/AdvReac Type Severity Reaction Status Date / Time No Known Allergies Allergy Unknown Verified 05/07/24 16:17 Medications Home Medications Medication Instructions Recorded Confirmed Last Taken cholecalciferol (vitamin D3) 1,250 50,000 unit PO .WEEKLY #12 caps 08/18/20 05/07/24 Unknown mcg (50,000 unit) capsule clopidogrel 75 mg tablet 75 mg PO DAILY #90 tabs 09/20/23 05/07/24 Unknown mirtazapine 7.5 mg tablet 7.5 mg PO HS 90 days #90 tabs 03/16/24 05/07/24 Unknown Active Medications Generic Name Dose Route Start Last Admin Trade Name Freq PRN Reason Stop Dose Admin Acetaminophen 650 mg 05/07/24 20:14 05/10/24 00:47 Acetaminophen 325 Mg Tab PO 06/06/24 20:13 650 mg Q4H PRN Administration pain/fever Diclofenac Sodium 2 gm 05/08/24 21:00 05/10/24 09:24 Diclofenac Sod 1% Gel 100 Gm Tube EXT 06/07/24 20:59 2 gm BID MACHO Administration Protocol Piperacillin Sod/Tazobactam Sod 4.5 gm in 100 mls @ 25 mls/hr 05/08/24 00:00 05/10/24 11:28 Zosyn IV 05/12/24 00:00 Infused Q8H MACHO Infusion Protocol Sodium Chloride 500 mls @ 80 mls/hr 05/10/24 11:45 05/10/24 12:55 Nss IV 05/10/24 17:59 0 mls/hr .Q6H15M MACHO Infusion Melatonin 3 mg 05/07/24 20:14 05/09/24 20:44 Melatonin 3 Mg Tab PO 06/06/24 20:13 3 mg HS PRN Administration Insomnia Miconazole Nitrate 1 appln 05/07/24 21:00 05/10/24 08:08 Miconazole Nitrate Powder 85 Gm EXT 06/06/24 20:59 1 appln BID MACHO Administration Mirtazapine 7.5 mg 05/07/24 21:00 05/09/24 20:43 Mirtazapine Tab 15 Mg Tab PO 06/06/24 20:59 7.5 mg HS MACHO Administration Morphine Sulfate 2 mg 05/07/24 20:14 05/09/24 20:43 Morphine Sulfate 2 Mg/Ml Carp IV 05/21/24 20:13 2 mg Q6H PRN Administration Pain Nystatin 1 appln 05/09/24 21:00 05/10/24 08:10 Nystatin Powder 15gm Btl EXT 06/08/24 20:59 1 appln BID MACHO Administration NPO Date Last Intake of Fluids: 05/09/24 Time Last Intake of Fluids: 23:59 Date Last Intake of Solids: 05/09/24 Time Last Intake of Solids: 23:59 Last Intake of Solids Comment: Greater then 8 hrs Past Medical History Medical History GERD (gastroesophageal reflux disease) Expressive aphasia CVA (cerebral vascular accident) Exercise / Class Metabolic Activity IV < 2 Limit ADL/Bedbound Past Family History Family History Daughter S/P cholecystectomy Other No pertinent family history in first degree relatives Past Surgical History Surgical History S/P hysterectomy S/P knee surgery S/P tooth extraction Past Anesthesia History No Hx of Anesthesia Complications History of PONV No Hx of PONV Social History Smoking Status: Unknown if ever smoked tobacco type: cigarettes Smoking cigarettes per day: 30 Do You Dip or Chew Tobacco: No alcohol intake frequency: other substance use type: does not use Physical Exam Vital Signs Last Vital Signs Temp 36.9 C 05/10/24 13:02 Pulse 66 05/10/24 13:02 Resp 18 05/10/24 13:02 BP 153/83 H 05/10/24 13:02 Pulse Ox 100 05/10/24 13:02 O2 Del Method Room Air 05/10/24 13:02 Constitutional no acute distress Contractures ENMT Mouth: + poor dentition (Mostly missing what remains broken and chipped ) Mallampati Class: II Respiratory normal respiratory effort Auscultation: lungs clear to auscultation bilaterally Cardiovascular Rate/Rhythm: regular rate and regular rhythm Testing Laboratory Results 05/10/24 06:00 05/10/24 06:00 Urine Color Yellow 05/07/24 18:45 Urine Appearance Clear (Clear) 05/07/24 18:45 Urine pH 7.0 (4.5-7.5) 05/07/24 18:45 Ur Specific [place] > 1.045 (1.000-1.030) H 05/07/24 18:45 Urine Protein Trace (Negative) H 05/07/24 18:45 Urine Glucose (UA) Negative (Negative) 05/07/24 18:45 Urine Ketones Negative (Negative) 05/07/24 18:45 Urine Nitrite Positive (Negative) A 05/07/24 18:45 Ur Leukocyte Esterase 1+ (Negative) H 05/07/24 18:45 Urine WBC (Auto) >50 /hpf (0-5) H 05/07/24 18:45 Urine RBC (Auto) 6-10 /hpf (0-2) H 05/07/24 18:45 U Hyaline Cast (Auto) 0-2 /lpf (0-2) 05/07/24 18:45 U Epithel Cells (Auto) 0-2 /hpf (0-2) 05/07/24 18:45 Urine Bacteria (Auto) 4+ (None Seen) H 05/07/24 18:45 05/07/24 18:45 Urine Culture - Final Urine,Straight Cath Escherichia coli
[2024-05-10] MEDS: INDOMETHACIN 50 MG SUPP PR ONE (14:19)
[2024-05-10] MEDS ORDERED: PHENYLEPHRINE 100MCG/ML 5ML SYR ONE (14:28)
[2024-05-10] MEDS ORDERED: SUGAMMADEX SODIUM 200 MG/2 ML VIAL IV ONE (14:43)
--- NOTE | 2024-05-10 15:07 | Fluoroscopy Report ---
[place] ERCP biliary ductal CLINICAL HISTORY: ERCP IN OR COMPARISON STUDY: None FLUOROSCOPY TIME: 5 minutes 43 seconds FLUOROSCOPY IMAGES: 10 EXPOSURE DOSE: 43.5 mGy FINDINGS: Endoscope is present at the upper abdomen. Common duct is cannulated with contrast injected . On the initial images there are a few filling defects within the common bile duct which are no long er seen after balloon sweeping. IMPRESSION: Fluoroscopy for ERCP. ACT 112: Negative or not required by law. Electronically signed by: Óscar Davenport M.D. 05/10/2024 3:06 PM
--- NOTE | 2024-05-10 15:16 | Anesthesiology Progress Note ---
Date of Service May 10, 2024 Anesthesia Post Procedure Vital Signs Vital Signs: Temp Pulse Resp BP Pulse Ox O2 Del Method 05/10/24 13:02 36.9 C 66 18 153/83 H 100 Room Air 05/10/24 11:23 36.8 C 75 16 143/85 H 97 Room Air 05/10/24 09:26 Room Air 05/10/24 07:42 36.6 C 64 18 112/79 98 Room Air 05/09/24 20:30 Room Air 05/09/24 20:15 36.6 C 64 20 146/78 H 96 Room Air 05/09/24 15:49 36.7 C 66 16 148/76 H 97 Room Air Transfer of Care Handoff Completed per policy Notes Mental Status: alert / awake / arousable Patient Amnestic to Procedure: Yes Nausea / Vomiting: adequately controlled Pain: adequately controlled Airway Patency, RR, SpO2: stable & adequate BP & HR: stable & adequate Hydration State: stable & adequate Anesthetic Complications: no major complications apparent and Pt Satisfied with anesthetic care Notes: doing well at baseline
[2024-05-10] MEDS: GLUCAGON FOR INJ 1 MG VIAL ONE (16:11)
[2024-05-10] MEDS: POTASSIUM CHLORIDE CRTAB 20 MEQ TABCR PO STA (16:58)
[2024-05-10] MEDS: HEPARIN SOD 5,000 UNIT/0.5 ML VIAL SQ SCH (20:06)
--- NOTE | 2024-05-10 20:10 | Surgery Consultation ---
Date of Consultation May 10, 2024 Assessment & Plan (1) Cholelithiasis with choledocholithiasis: I evaluated the patient in room 384. As noted General Surgery was asked to see the patient as she had choledocholithiasis and is status post ERCP on 05/10/2024. Recommendations are as follows: As the patient has had choledocholithiasis and status post ERCP and also has noted cholelithiasis on her CT scan consideration is being given to performing cholecystectomy As the patient has expressive aphasia I contacted her parts interpreter as noted in history of present illness section as document. I explained to this person that in the setting of choledocholithiasis with cholelithiasis there is a possibility that she could end up having choledocholithiasis again if her gallbladder is not removed. I did explain to him that I cannot predict in a reliable fashion when and if recurrent choledocholithiasis would happen if her gallbladder was not removed. He was uncertain if he wanted to proceed with any more invasive procedures and would like to think about it In the interim we will proceed as follows: I do not see that coagulation studies were checked since her hospitalization so these have been ordered I will make her empirically n.p.o. after midnight tonight in the event he wishes to proceed and there is OR availability for cholecystectomy tomorrow We will check a gallbladder ultrasound to ensure that she does not have any signs of cholecystitis The patient does take Plavix as an outpatient. This medication is currently on hold. Per hospitalist notes her most recent dose of this medication was on 05/07/2024 and would be preferable to continue to hold this medication until it is ascertained whether or not she will undergo cholecystectomy Patient's parts interpreter notes that he will think about the possibility of cholecystectomy and would like to have further discussion with the patient's medical providers tomorrow. Will await further discussion with additional recommendations to follow. Supervising Physician Co-Signing Physician Notes Patient discussed with Tello FERREIRA, labs and imaging reviewed, agree with above. History of stroke with expressive aphasia, brought in for knee pain, during evaluation noted to have choledocholithiasis. Status post ERCP. Consider cholecystectomy during this stay or electively as an outpatient. is primary decision-maker, I would like to think about it. History of Present Illness Reason for Consultation: Cholelithiasis Attending Physician: Nemesio A Saborio History of Present Illness I this is a 58-year-old female who was admitted to [facility] on 05/07/2024. 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 Because of her underlying stroke the patient cannot provide any meaningful information. I discussed with the nursing staff who provided me with the patient's parts interpreter/significant other information and I contacted and Mr. Froylan Ly. He notes that he brought the patient to the hospital on the date of admission secondary to knee pain. According to him she was not complaining of any abdominal pain and has not had any nausea or vomiting. Is unclear what transpir ed but through her course of hospitalization on the day of her admission she underwent a CT scan of the abdomen pelvis. This study showed the patient had gallstones as well as choledocholithiasis with numerous small gallstones along the length of the common bile duct. There is no extrahepatic biliary ductal dilatation. The gallbladder did show multiple gallstones. Labs on date of admission were reviewed and patient had a white blood cell count of 14.3. Her hemoglobin, hematocrit, and platelet count were normal. Chemistry profile showed sodium and potassium 135 and 3.1. The BUN and creatinine were normal. She did have an elevated total bilirubin of 1.3. Her transaminases were normal and her alkaline phosphatase was 135. Because of the patient's noted choledocholithiasis the patient was seen in consultation by gastroenterology and the patient underwent an ERCP today which was 05/10/2024. During this procedure patient was noted to have choledocholithiasis with partial obstruction of the common bile duct. Complete removal was accomplished with biliary sphincterotomy and balloon extraction. Because of her choledocholithiasis as well as noted gallstones General Surgery was consulted for consideration of cholecystectomy. Additional available imaging was reviewed and patient did have a chest x-ray on date of admission that showed no evidence of pneumonia. Her admission labs are noted above and her most recent laboratories from today include a CBC with a white blood cell count hemoglobin as well as the platelet count were normal. Her hematocrit was slightly low at 35.6. Chemistry profile showed sodium was 140 with a potassium of 3.3. BUN and creatinine were not elevated. Her total bilirubin was 3.3 with a direct bilirubin 1.9. Her AST was elevated at 77 and ALT of 50. Alkaline phosphatase was 140. It is noteworthy to mention that the patient has never had an elevated lipase during this admission. According to the nurse attending to the patient she has not complained of any abdominal pain and has not had any bouts of emesis. She has also been afebrile. At the time of my interview with the patient was resting comfortably in bed and she was in no distress. Allergies Allergy/AdvReac Type Severity Reaction Status Date / Time No Known Allergies Allergy Unknown Verified 05/07/24 16:17 Home Medications Medication Instructions Recorded Confirmed Type cholecalciferol (vitamin D3) 1,250 50,000 unit PO .WEEKLY #12 caps 08/18/20 05/07/24 Rx mcg (50,000 unit) capsule clopidogrel 75 mg tablet 75 mg PO DAILY #90 tabs 09/20/23 05/07/24 Rx mirtazapine 7.5 mg tablet 7.5 mg PO HS 90 days #90 tabs 03/16/24 05/07/24 Rx Patient History Medical History GERD (gastroesophageal reflux disease) Expressive aphasia CVA (cerebral vascular accident) Surgical History S/P hysterectomy S/P knee surgery S/P tooth extraction Family History Daughter S/P cholecystectomy Other No pertinent family history in first degree relatives Social History Smoking Status: Unknown if ever smoked Cigarettes Per Day: 30; Second Hand Exposure: Yes; Do You Dip or Chew Tobacco: No; Preferred Language: [place]uran Communication Ability: Unable Communication Ability Comment: expressive aphasia, 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 to answer 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 Beliefs That Will Affect Care: None marital status: Life Partner Current Living Situation: Spouse current occupational status: disabled Feels Safe at Home: Yes Dental Care, Regularly: No Physical Activity Frequency: Other Seatbelt Use: always Sunscreen Use: No Assistive Devices: Hospital Bed and Mechanical Lift Review of Systems Review of Systems: Unobtainable due to cognitive status Physical Exam Constitutional: WD/WN, vitals as above Eyes: + anicteric sclerae ENMT: Ears: no external ear abnormality Neck: trachea midline Respiratory: normal respiratory effort; no respiratory distress and no labored breathing Cardiovascular: Rate/Rhythm: regular rate and regular rhythm Gastrointestinal (Abdomen): At the time my exam the abdomen was noted be soft without distention. Palpation did not appear to elicit any painful response Skin: no jaundice Neurologic: Expressive aphasia noted Results & Data Vital Signs (Past 12 Hours) Vital Signs Temp Pulse Pulse Resp BP Pulse Ox O2 Del Method 05/10/24 19:56 36.4 C L 58 L 20 132/78 94 Room Air 05/10/24 18:43 63 16 154/82 H 97 Room Air 05/10/24 17:59 80 16 165/69 H 93 Room Air 05/10/24 16:51 61 16 153/82 H 98 Room Air 05/10/24 16:28 Room Air 05/10/24 16:23 70 16 160/102 H 94 Room Air 05/10/24 15:54 36.4 C L 64 16 112/69 93 Room Air 05/10/24 15:35 36.6 C 70 16 124/70 94 Room Air 05/10/24 15:25 61 17 125/69 94 Room Air 05/10/24 15:15 65 17 128/72 97 Oxymask 05/10/24 15:05 79 18 137/79 98 Oxymask 05/10/24 14:58 36.6 C 85 21 152/90 H 94 Oxymask 05/10/24 13:02 36.9 C 66 18 153/83 H 100 Room Air 05/10/24 11:23 36.8 C 75 16 143/85 H 97 Room Air 05/10/24 09:26 Room Air O2 Flow Rate 05/10/24 19:56 05/10/24 18:43 05/10/24 17:59 05/10/24 16:51 05/10/24 16:28 05/10/24 16:23 05/10/24 15:54 05/10/24 15:35 05/10/24 15:25 05/10/24 15:15 2 05/10/24 15:05 4 05/10/24 14:58 6 05/10/24 13:02 05/10/24 11:23 05/10/24 09:26 PG Care Time/CCT Total # of Minutes Spent Total Time Spent with Patient: Total time spent is greater than 50% in coordination of care (as documented) at patient's floor/unit and/or counseling patient: Coding Level of Care Code 54124 IN/OBS CONSULT LVL 5,80M Diagnoses Cholelithiasis with choledocholithiasis K80.70
--- NOTE | 2024-05-10 22:37 | Billing Data ---
Date of Service May 10, 2024 Coding Level of Care Code 34808 SUB INP/OBS CARE MIN
--- NOTE | 2024-05-11 01:32 | Ultrasound Report ---
Exam(s): US GALLBLADDER EXAM: US Abdomen Limited, Gallbladder CLINICAL HISTORY: Reason for exam: gall stones. TECHNIQUE: Real-time ultrasound of the right upper quadrant with image documentation. COMPARISON: CT abdomen/pelvis on 05/07/2024 FINDINGS: Liver: Liver measures 15.3 cm. Increased echogenicity of the liver suggestive of hepatic steatosis. No intrahepatic bile duct dilation. Gallbladder: Cholelithiasis and sludge. Mild prominence of the gallbladder wall and pericholecystic edema. Negative sonographic Baxter's sign. Common bile duct: Nonspecific mild prominence of the common bile duct measuring 6.7 mm. No choledocholithiasis is identified. Pancreas: Nonspecific minimal prominence of the pancreatic duct measuring 2.2 mm. Evaluation is limited by overlying bowel gas. Right kidney: No hydronephrosis or stone. Portal vein: Patent with normal direction of flow. Free fluid: No ascites. IMPRESSION: 1. Cholelithiasis and sludge. Mild prominence of the gallbladder wall and pericholecystic edema. However, negative sonographic Baxter's sign suggests against acute cholecystitis. 2. Probable hepatic steatosis. 3. Nonspecific mild prominence of the common bile duct. Electronically signed by: Rolando Moreno M.D. 05/11/24 01:32 AM
[2024-05-11 07:19] LABS: Partial Thromboplastin Time 26 Seconds (21-31); Prothrombin Time 10.9 Seconds (9.0-12.0)
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
[2024-05-11 07:25] LABS: Basophils # (auto) 0.02 K/uL (0.00-0.20); Basophils % (auto) 0.2 %; Eosinophils # (auto) 0.03 K/uL (0.00-0.50); Eosinophils % (auto) 0.3 %; Hematocrit (blood only) 38.6 % (37.0-47.0); Hemoglobin 13.4 g/dl (12.0-16.0); Immature Granulocytes # (auto) 0.05 K/uL (0.01-0.20); Immature Granulocytes % (auto) 0.5 %; Lymphocytes # (auto) 1.89 K/uL (1.20-3.40); Lymphocytes % (auto) 18.8 %; Mean Corpuscular Hemoglobin 30.1 pg (25.0-34.0); Mean Corpuscular Hgb Conc 34.7 g/dL (32.0-36.0); Mean Corpuscular Volume 86.7 fL (80.0-100.0); Mean Platelet Volume 9.5 fL (9.4-12.4); Monocytes # (auto) 0.45 K/uL (0.11-0.59); Monocytes % (auto) 4.5 %; Neutrophils # (auto) 7.64 K/uL (1.40-6.50); Neutrophils % (auto) 75.7 %; Platelet Count 315 K/uL (130-400); RDW Coefficient of Variation 12.5 % (11.5-14.5); RDW Standard Deviation 39.5 fL (36.4-46.3); Red Blood Count 4.45 M/uL (4.20-5.40); White Blood Count 10.08 K/ul (4.8-10.8)
[2024-05-11 07:40] LABS: Albumin Globulin Ratio 1.1 (0.9-2); Albumin Level 3.5 gm/dl (3.4-5.0); BUN Creatinine Ratio 21.3 (10-20); Bilirubin,Total 2.5 mg/dl (0.2-1.0); Creatinine Clr Calc Pharmacy 90.5 ml/min; Globulin 3.2 gm/dl (2.5-4.0); Potassium 3.9 mmol/L (3.5-5.1); Total Protein 6.7 gm/dl (6.0-8.3)
--- NOTE | 2024-05-11 09:33 | Gastroenterology Progress Note ---
Date of Service May 11, 2024 Assessment & Plan (1) Cholelithiasis with choledocholithiasis: Plan: 58 year old female with history of CVA w/ R sided deficits and aphasia, depression, and chronic knee pain, GERD, fungal dermatitis, malnutrition - GI asked to evaluate as imaging revealed CBD stones. S/P ERCP w/ sphincterotomy and balloon extraction, transaminases downtrending, pain free. updated by GI after ERCP yesterday. No GI contraindication to diet but appears she is NPO for surgical evaluation. Recall GI as needed. I spent a total of 40 minutes on the date of service in review of patient's record, and previously obtained information in person and appropriate medical visit, discussion and education of plan, with patient and/or caregiver, placing orders for tests/referral/procedures as medically necessary and documentation of pertinent clinical information in patient's medical records for their visit today. Admission and Anticipated Discharge Date Admission Date: May 07, 2024 Supervising Physician Co-Signing Physician Notes I saw and examined this patient with our nurse practitioner and agree with her assessment and plan. Doing well post ERCP with stone extraction. No signs of pancreatitis or cholangitis. Denies any abdominal pain. Advance diet as tolerated. Subjective Reports knee pain. No abd pain. No nausea/vomiting. S/P ERCP w/ sphincterotomy and balloon extraction. LFTs improving. Review of Systems Review of Systems: All other findings negative except as noted in HPI. Physical Exam Constitutional: well developed Respiratory: normal respiratory effort Gastrointestinal (Abdomen): Percussion/Palpation: abdomen soft; abdomen nontender Skin: no rashes, warm and dry Results & Data Results & Data Vital Signs (Past 12 Hours) Vital Signs Temp Pulse Resp BP Pulse Ox O2 Del Method 05/11/24 08:14 97.5 F L 88 14 145/85 H Room Air 05/11/24 04:06 97.5 F L 64 16 119/73 97 Room Air 05/11/24 00:05 97.7 F 96 H 18 119/75 96 Room Air Laboratory Results 05/11/24 05/11/24 05/10/24 Range/Units 07:08 06:13 06:00 WBC 10.08 (4.8-10.8) K/ul RBC 4.45 (4.20-5.40) M/uL Hgb 13.4 (12.0-16.0) g/dl Hct 38.6 (37.0-47.0) % MCV 86.7 (80.0-100.0) fL MCH 30.1 (25.0-34.0) pg MCHC 34.7 (32.0-36.0) g/dL RDW Std Deviation 39.5 (36.4-46.3) fL RDW Coeff of Reece 12.5 (11.5-14.5) % Plt Count 315 (130-400) K/uL MPV 9.5 (9.4-12.4) fL Immature Gran % (Auto) 0.5 % Neut % (Auto) 75.7 % Lymph % (Auto) 18.8 % Hickman % (Auto) 4.5 % Eos % (Auto) 0.3 % Baso % (Auto) 0.2 % Neut # (Auto) 7.64 H (1.40-6.50) K/uL Lymph # (Auto) 1.89 (1.20-3.40) K/uL Hickman # (Auto) 0.45 (0.11-0.59) K/uL Eos # (Auto) 0.03 (0.00-0.50) K/uL Baso # (Auto) 0.02 (0.00-0.20) K/uL Immature Gran # (Auto) 0.05 (0.01-0.20) K/uL PT 10.9 (9.0-12.0) Seconds INR 1.0 (0.9-1.1) APTT 26 (21-31) Seconds PTT Ratio 1.0 Sodium 138 Cancelled Potassium 3.9 Cancelled Chloride 105 Cancelled Carbon Dioxide 24 Cancelled Anion Gap 9 Cancelled BUN 13 Cancelled Creatinine 0.61 Cancelled Est Cr Clr Drug Dosing 90.5 Cancelled eGFR 103.56 Cancelled BUN/Creatinine Ratio 21.3 H Cancelled Glucose 92 Cancelled Calcium 9.0 Cancelled Total Bilirubin 2.5 H Cancelled Direct Bilirubin 1.9 H (0-0.2) mg/dl AST 40 H Cancelled ALT 48 Cancelled Alkaline Phosphatase 153 H Cancelled Total Protein 6.7 Cancelled Albumin 3.5 Cancelled Globulin 3.2 Cancelled Albumin/Globulin Ratio 1.1 Cancelled PG Care Time/CCT Total # of Minutes Spent Total Time Spent with Patient: Total time spent is greater than 50% in coordination of care (as documented) at patient's floor/unit and/or counseling patient: Coding Level of Care Code 54580 SUB INP/OBS CARE Diagnoses Cholelithiasis with choledocholithiasis K80.70
--- NOTE | 2024-05-11 13:33 | Surgery Progress Note ---
Date of Service May 11, 2024 Assessment & Plan (1) Cholelithiasis with choledocholithiasis: Plan: I personally called Froylan, patient's financial operations clerk, again this morning to discuss possibility of surgery. He states that after some thought he does not want to put her through any surgical intervention at this time. He wants to try to treat the patient conservatively in hopes this won't happen again. I again explained that in the setting of choledocholithiasis with cholelithiasis, there is a possibility that this could reoccur if her gallbladder is not removed to which he expresses understanding. I also discussed outpatient follow up with general surgery, however he states he will call her PCP to perform a telemedicine visit due to not being able to arrange in-person office visits. From a surgical perspective the patient may have a diet as tolerated and her Plavix can be re- started which was relayed to the medicine team. At this time surgery team will sign off, please re-call with any questions or concerns. Admission and Anticipated Discharge Date Admission Date: May 07, 2024 Supervising Physician Co-Signing Physician Notes Patient seen and examined, labs and imaging reviewed, agree with above. Expressive aphasia from major stroke, admitted with knee pain, incidental finding of choledocholithiasis treated with ERCP yesterday. Ultrasound overnight showed cholelithiasis with mild prominence of the gallbladder wall but negative Baxter sign equivocal for cholecystitis. No abdominal tenderness, tolerating diet. CARLOS discussed with her we does not desire to have surgery at this time. They would like to take her home. They understand that this may recur if her gallbladder remains untreated. This can be scheduled as an outpatient for cholecystectomy if he desires. She will need to hold Plavix prior to the surgery. Surgery will sign off, Dr. Michel covering over the weekend Subjective Patient doing well this morning. When asked if she is having any pain she points to her right knee. No abdominal pain with palpation No reports or N/V Afebrile and WBC WNL LFTs starting to downtrend from 3.3 to 2.5 Physical Exam Constitutional: WD/WN, vitals as above Respiratory: normal respiratory effort, lungs clear to auscultation Cardiovascular: Rate/Rhythm: regular rate Gastrointestinal (Abdomen): Abdomen soft, nondistended, nontender to palpation. Negative Baxter's sign. No rebound or guarding Skin: no rashes, warm and dry Results & Data Vital Signs (Past 12 Hours) Vital Signs Temp Pulse Resp BP Pulse Ox O2 Del Method 05/11/24 11:47 36.8 C 87 20 121/74 95 Room Air 05/11/24 08:14 36.4 C L 88 14 145/85 H Room Air 05/11/24 04:06 36.4 C L 64 16 119/73 97 Room Air PG Care Time/CCT Total # of Minutes Spent Total Time Spent with Patient: Total time spent is greater than 50% in coordination of care (as documented) at patient's floor/unit and/or counseling patient: [place] [address] SUB INP/OBS CARE 03/31MIN Patient Type Established Medical Decision Making Straight Forward Diagnoses Cholelithiasis with choledocholithiasis K80.70
--- NOTE | 2024-05-11 23:08 | Billing Data ---
Date of Service May 11, 2024 Coding Level of Care Code 31400 SUB INP/OBS CARE MIN
[2024-05-12 06:49] LABS: Basophils # (auto) 0.08 K/uL (0.00-0.20); Basophils % (auto) 0.7 %; Eosinophils % (auto) 4.5 %; Hematocrit (blood only) 36.5 % (37.0-47.0); Hemoglobin 12.5 g/dl (12.0-16.0); Immature Granulocytes # (auto) 0.06 K/uL (0.01-0.20); Immature Granulocytes % (auto) 0.5 %; Lymphocytes # (auto) 3.69 K/uL (1.20-3.40); Lymphocytes % (auto) 33.6 %; Mean Corpuscular Hemoglobin 29.8 pg (25.0-34.0); Mean Corpuscular Hgb Conc 34.2 g/dL (32.0-36.0); Mean Corpuscular Volume 86.9 fL (80.0-100.0); Mean Platelet Volume 9.6 fL (9.4-12.4); Monocytes # (auto) 0.54 K/uL (0.11-0.59); Monocytes % (auto) 4.9 %; Neutrophils # (auto) 6.12 K/uL (1.40-6.50); Neutrophils % (auto) 55.8 %; Platelet Count 331 K/uL (130-400); RDW Coefficient of Variation 13.1 % (11.5-14.5); RDW Standard Deviation 41.1 fL (36.4-46.3); White Blood Count 10.99 K/ul (4.8-10.8)
[2024-05-12 07:19] LABS: Albumin Globulin Ratio 1.1 (0.9-2); Albumin Level 3.3 gm/dl (3.4-5.0); BUN Creatinine Ratio 18.7 (10-20); Bilirubin,Total 1.2 mg/dl (0.2-1.0); Calcium 8.6 mg/dl (8.6-10.3); Creatinine Clr Calc Pharmacy 73.6 ml/min; Potassium 3.3 mmol/L (3.5-5.1); Total Protein 6.3 gm/dl (6.0-8.3)
[2024-05-12] MEDS: POTASSIUM CHLORIDE CRTAB 20 MEQ TABCR PO ONE (07:38)
[2024-05-12] MEDS: CLOPIDOGREL BISULFATE 75 MG TAB PO SCH (08:48)
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
--- NOTE | 2024-05-12 12:38 | Orthopedic Consultation ---
Date of Consultation May 12, 2024 Assessment & Plan (1) Acute knee pain: (2) Depression: (3) UTI (urinary tract infection): (4) Folate deficiency: (5) History of CVA (cerebrovascular accident): (6) GERD (gastroesophageal reflux disease): (7) Cholelithiasis with choledocholithiasis: (8) Vitamin D deficiency: (9) Weakness: (10) Severe protein-calorie malnutrition: Plan this is a 58-year-old female who is admitted to the hospital at the behest of her significant other who is unable to care for her at home mostly secondary to pain in her right lower extremity. The patient is aphasic due to previous stroke and as such history was gathered from her . He did explain that she was in her normal state of health until 05/03 when she began withdrawing her right lower extremity. He notes that she seemed to be in pain whenever he attempted to straighten her right lower extremity. He states that at baseline she was able to move this leg on her own. On my evaluation, the patient does not appear acutely ill. Her vital signs are within normal limits. I was able to range her hip and her knee without significant pain. She does have some flexion contractures of her hip and her knee as well as a plantarflexion contracture of her ankle which I suspect are somewhat at baseline. Overall, I am not certain as to why the patient is having such significant right lower extremity pain. I suppose that an issue in her lumbar spine could be causing this and as such I would recommend a workup of her low back, as well. She does not appear to have a septic joint as I am able to passively range her hip and her knee without significant pain. That said, aspiration of her right hip done by interventional radiology would be able to rule this in or out. It is possible that she has gout or pseudogout in her hip causing pain there which may be causing her to sit in this position. I would recommend continued physical therapy and Occupational Therapy to work on straightening this leg so as to not increase her flexion contractures. I did call and discuss patient's care with her as well as with the medical team. My recommendation would be for IR guided right hip aspiration as well as workup of her low back. History of Present Illness Reason for Consultation: "Right knee vs hip pain" Requesting Physician: Dr Ferrer Attending Physician: Nemesio Casas History of Present Illness Ms. Pennabaker is a 58 y/o female with PMHx of Large L MCA Distribution Infarct with R sided deficits and Aphasia, Depression, and Chronic Bilateral Knee Pain who presents to [facility] due to R knee pain. Due to patient's aphasia and baseline m entation history is obtained from notes and discussion with her significant other and caregiver, Froylan over the phone. He reports she has been in her normal state of health until 05/03. She i s bedbound at baseline but he normally is able to handle her needs. On she started complaining of R leg pain and kept pulling her leg up and keeping it bent. he notes that ordinarily she is able to straighten her leg and control her leg on the right side on her own although it is weaker than the contralateral side. He notes the primary reason for bringing her into the hospital is that he cannot change her diaper at home. He denies any trauma to the right lower extremity. He denies any history of fevers or chills. Since the patient's admission, imaging of the right lower extremity has not revealed any acute osseous abnormalities. CT of the abdomen revealed cholelithiasis and choledocholithiasis For which she had ERCP, however patient's has refused cholecystectomy. On my evaluation, the patient is resting in bed in no acute distress. She does sit with her right lower extremity flexed and abducted at the hip and flexed at the knee. she points to her knee as the primary source of pain. Allergies Allergy/AdvReac Type Severity Reaction Status Date / Time No Known Allergies Allergy Unknown Verified 05/07/24 16:17 Home Medications Medication Instructions Recorded Confirmed Type cholecalciferol (vitamin D3) 1,250 50,000 unit PO .WEEKLY #12 caps 08/18/20 05/07/24 Rx mcg (50,000 unit) capsule clopidogrel 75 mg tablet 75 mg PO DAILY #90 tabs 09/20/23 05/07/24 Rx mirtazapine 7.5 mg tablet 7.5 mg PO HS 90 days #90 tabs 03/16/24 05/07/24 Rx Patient History Medical History GERD (gastroesophageal reflux disease) Expressive aphasia CVA (cerebral vascular accident) Surgical History S/P hysterectomy S/P knee surgery S/P tooth extraction Family History Daughter S/P cholecystectomy Other No pertinent family history in first degree relatives Social History Smoking Status: Unknown if ever smoked Cigarettes Per Day: 30; Second Hand Exposure: Yes; Do You Dip or Chew Tobacco: No; Preferred Language: Sami Communication Ability: Unable Communication Ability Comment: expressive aphasia, unable to answer Transformer Mechanic Required: No Beliefs That Will Affect Care: None marital status: Life Partner Current Living Situation: Spouse current occupational status: disabled Feels Safe at Home: Yes Dental Care, Regularly: No Physical Activity Frequency: Other Seatbelt Use: always Sunscreen Use: No Assistive Devices: Hospital Bed and Mechanical Lift Review of Systems Review of Systems: Unobtainable due to cognitive status Physical Exam Physical Exam: Temperature 36.8 Pulse 62 Respiration 16 Blood pressure 115/71 On physical examination, the patient sits with her right hip in a flexed and abducted position. She is flexed at the knee, as well. she is able to tolerate passive range of motion of the knee from full flexion to proximately 40 degrees from full extension without significant pain. She also does not have significant pain with passive right hip range of motion. Results & Data Vital Signs (Past 12 Hours) Vital Signs Temp Pulse Resp BP Pulse Ox O2 Del Method 05/12/24 07:19 36.8 C 62 16 115/71 96 Room Air Laboratory Results White blood cell 10.99 Diagnostic Findings x-rays of the right knee and CT of the pelvis personally interpreted and reviewed. No acute osseous abnormalities of the right hip or right knee are appreciated. (2) Depression Depression Type: unspecified Qualified Code(s): F32.9 - Major depressive disorder, single episode, unspecified (3) UTI (urinary tract infection) Hematuria presence: without hematuria Urinary tract infection type: site unspecified Qualified Code(s): N39.0 - Urinary tract infection, site not specified (6) GERD (gastroesophageal reflux disease) Esophagitis presence: esophagitis presence not specified Qualified Code(s): K21.9 - Gastro-esophageal reflux disease without esophagitis
--- NOTE | 2024-05-12 13:19 | XRay Report ---
XR femur RT 2V routine CLINICAL HISTORY: pain COMPARISON: Right knee 05/08/2024 FINDINGS: Patient is unable to cooperate with standard positioning. There is osteopenia. No fracture or dislocation seen at the right femur. No osseous lesions seen. IMPRESSION: No acute findings seen. ACT 112: Negative or not required by law. Electronically signed by: sÓcar Davenport M.D. 05/12/2024 1:17 PM
--- NOTE | 2024-05-12 15:41 | XRay Report ---
HISTORY: Lower back pain and right leg pain. TECHNIQUE: Lumbar spine, 7 views. COMPARISON: Lumbar spine CT dated 05/07/2024. FINDINGS: Grade 1 anterolisthesis of L5 on S1 measuring 0.9 cm. Chronic bilateral L5 pars defects. The vertebral body heights are maintained without compression deformity. Multilevel degenerative disc disease is most pronounced and moderate at L5-S1. Lower lumbar facet arthrosis. Mild lumbar dextrocurvature. Aortoiliac atherosclerotic vascular disease. Numerous surgical clips overlying the pelvis. IMPRESSION: 1. No acute osseous abnormality. 2. Grade 1 anterolisthesis of L5 on S1 related to chronic bilateral L5 pars defects. 3. Multilevel degenerative spondylosis of the lumbar spine is most pronounced and moderate at L5-S1. Electronically signed by Luis Ponce 05-12-2024 3:41 PM
[2024-05-12] MEDS: LIDOCAINE 5% 1 PATCH TD SCH (17:22)
[2024-05-12] MEDS: CYCLOBENZAPRINE HCL 5 MG TAB PO PRN (19:54)
--- NOTE | 2024-05-12 22:28 | Billing Data ---
Date of Service May 12, 2024 Coding Level of Care Code 38469 SUB INP/OBS CARE
[2024-05-13 06:25] LABS: Basophils % (auto) 1.2 %; Eosinophils # (auto) 0.55 K/uL (0.00-0.50); Eosinophils % (auto) 6.8 %; Hematocrit (blood only) 35.8 % (37.0-47.0); Hemoglobin 12.5 g/dl (12.0-16.0); Immature Granulocytes # (auto) 0.04 K/uL (0.01-0.20); Immature Granulocytes % (auto) 0.5 %; Lymphocytes # (auto) 2.83 K/uL (1.20-3.40); Lymphocytes % (auto) 34.9 %; Mean Corpuscular Hemoglobin 30.9 pg (25.0-34.0); Mean Corpuscular Hgb Conc 34.9 g/dL (32.0-36.0); Mean Corpuscular Volume 88.4 fL (80.0-100.0); Mean Platelet Volume 9.9 fL (9.4-12.4); Monocytes # (auto) 0.56 K/uL (0.11-0.59); Monocytes % (auto) 6.9 %; Neutrophils # (auto) 4.04 K/uL (1.40-6.50); Neutrophils % (auto) 49.7 %; Platelet Count 330 K/uL (130-400); RDW Coefficient of Variation 13.1 % (11.5-14.5); RDW Standard Deviation 42.3 fL (36.4-46.3); Red Blood Count 4.05 M/uL (4.20-5.40); White Blood Count 8.12 K/ul (4.8-10.8)
[2024-05-13 06:52] LABS: Albumin Globulin Ratio 1.2 (0.9-2); Albumin Level 3.5 gm/dl (3.4-5.0); BUN Creatinine Ratio 22.6 (10-20); Bilirubin,Total 0.7 mg/dl (0.2-1.0); Calcium 8.9 mg/dl (8.6-10.3); Creatinine Clr Calc Pharmacy 104.1 ml/min; Potassium 3.6 mmol/L (3.5-5.1); Total Protein 6.5 gm/dl (6.0-8.3)
[2024-05-13] MEDS: CYCLOBENZAPRINE HCL 5 MG TAB PO ONE (09:02)
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
[2024-05-14 07:21] LABS: Basophils % (auto) 1.3 %; Eosinophils # (auto) 0.46 K/uL (0.00-0.50); Eosinophils % (auto) 5.8 %; Hematocrit (blood only) 37.7 % (37.0-47.0); Hemoglobin 12.7 g/dl (12.0-16.0); Immature Granulocytes # (auto) 0.02 K/uL (0.01-0.20); Immature Granulocytes % (auto) 0.3 %; Lymphocytes # (auto) 3.76 K/uL (1.20-3.40); Lymphocytes % (auto) 47.3 %; Mean Corpuscular Hemoglobin 30.2 pg (25.0-34.0); Mean Corpuscular Hgb Conc 33.7 g/dL (32.0-36.0); Mean Corpuscular Volume 89.5 fL (80.0-100.0); Mean Platelet Volume 9.9 fL (9.4-12.4); Monocytes # (auto) 0.43 K/uL (0.11-0.59); Monocytes % (auto) 5.4 %; Neutrophils # (auto) 3.18 K/uL (1.40-6.50); Neutrophils % (auto) 39.9 %; Platelet Count 349 K/uL (130-400); RDW Coefficient of Variation 13.4 % (11.5-14.5); RDW Standard Deviation 43.9 fL (36.4-46.3); Red Blood Count 4.21 M/uL (4.20-5.40); White Blood Count 7.95 K/ul (4.8-10.8)
[2024-05-14 08:36] LABS: Albumin Globulin Ratio 1.2 (0.9-2); Albumin Level 3.5 gm/dl (3.4-5.0); BUN Creatinine Ratio 18.5 (10-20); Bilirubin,Total 0.7 mg/dl (0.2-1.0); Creatinine Clr Calc Pharmacy 102.2 ml/min; Potassium 3.6 mmol/L (3.5-5.1); Total Protein 6.5 gm/dl (6.0-8.3)
--- NOTE | 2024-05-14 11:19 | Billing Data ---
Date of Service May 13, 2024 Coding Level of Care Code 88376 SUB INP/OBS CARE
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
[2024-05-16] MEDS ORDERED: traMADol HCL 50 MG TABLET PO PRN (09:34)
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
[2024-05-16 19:25] VITALS: O2SAT 97
[2024-05-17 08:12] VITALS: BP 110/72; PULSE 73; RESP 20; TEMP 98.1
--- NOTE | 2024-05-17 12:29 | Discharge Summary ---
Discharge Summary Date of Service May 17, 2024 Principal Dx & Hospital Course #1 = Principal Diagnosis (1) Acute knee pain: Now resolved. Underlying severe osteoarthritis. (2) Cholelithiasis with choledocholithiasis: Currently asymptomatic. Appreciate general surgery consultation recommendations. No intervention at this time (3) UTI (urinary tract infection): E. coli isolated. Treated with intravenous Zosyn while hospitalized (4) Expressive aphasia: Chronic. From previous CVA. Supportive care Plan Home today with home health services, May 17 Admission HPI Per Admitting Provider Ms. 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 Due to patient's aphasia and baseline mentation history is obtained from notes and discussion with her significant other Froylan over the phone. He reports she has been in her normal state of health up until . She is bedbound at baseline but he normally is able to handle her needs. On she started complaining of R knee pain and kept pulling her leg up and keeping it bent. He states she normally keeps this straight. He reports this has been the only complaint she has been giving. Due to her keeping her leg in a contracted position, he has struggled to maintain changing her brief and keeping her dry. He notes she is having increasing rash due to difficulty changing her. He also noted her appetite decreased on as well. He opted for transfer to the hospital via EMS to evaluated the knee pain. Patient is laying in bed in NAD but does point to her knee when asked about pain. Knee is not warm to touch or tender with palpation. denies any trauma to this knee. At some point, patient must of complained of abdominal pain. CT revealed cholelithiasis and choledocholithiasis - numerous small stones extend along the length of the CBD without evidence for significant extrahepatic bile duct dilation and mild intrahepatic biliary ductal dilatation. LFTs are WNL. Lipase WNL. Discharge Exam General-alert and oriented x3, no fever, no chills HEENT-head atraumatic and normocephalic, pupils equal and reactive to light, extraocular muscles intact Neck-no lymphadenopathy or thyromegaly, trachea midline Chest-clear to auscultation. No rales, wheezing or rhonchi Cardiac-regular rate and rhythm, normal S1 and S2 Abdomen-normal bowel sounds, no hepatosplenomegaly Extremities-no cyanosis, clubbing, or edema Neuro-cranial nerves II through XII intact, chronic right hemiplegia from old CVA , aphasia Psych-normal affect, normal mood Discharge Plan Discharge Items Patient Disposition: Home - Home Health Services Reason For Visit: CHOLEDOCHOLITHIASIS Discharge Diagnosis: Exacerbation right knee pain secondary to underlying osteoarthritis, E. coli UTI, cholelithiasis with choledocholithiasis Activity: Resume your previous activity Non-emergency contact: Primary Care Provider Call non-emergency contact if: your symptoms worsen Follow-up/Referrals: Ant Sprague MD [Primary Care Provider] - 05/24/24 10:30 am Diet: Regular and Heart Healthy Addtl Attending Provider Instructions: Take Flexeril (cyclobenzaprine) 5 mg every 8 hours as needed for muscle cramping Pending Studies at Discharge: No Stand-Alone Forms: WITOI, Smoking Cessation Medications and DC Order Prescriptions: New cyclobenzaprine 5 mg Tablet 5 mg PO Q8H PRN (Reason: muscle spasm) Qty: 20 0RF Continued cholecalciferol (vitamin D3) 1,250 mcg (50,000 unit) capsule 50,000 unit PO .WEEKLY Qty: 12 0RF clopidogrel 75 mg tablet 75 mg PO DAILY Qty: 90 3RF mirtazapine 7.5 mg tablet 7.5 mg PO HS 90 Days Qty: 90 3RF Discharge Orders: Discharge Order (Routine); Ordered 05/17/24 Ordered By: Myke Russell Admission Data Admit Date/Time: 05/07/24 17:33 Attending Provider: Myke Russell Admit Provider: Chris Cole Primary Care Provider: Ant Sprague Other Providers: [facility],Home Healthcare; Chris Cole; Dru Grant Jr; Óscar Hernandez; Sree Henderson Other Interventions: Discharge Summary Assessment (RN) Last Done: 05/17/24 12:20 Hospital Stay Data Consultations 05/07/24 16:46 ED Decision to Admit Stat 05/07/24 20:14 Consult Gastroenterology Routine 05/10/24 17:23 Consult General Surgery Routine 05/12/24 10:10 Consult Orthopedic Surgery Routine Procedures Performed Operation Date: 05/10/24 13:30 Actual Procedures p Endoscopic Retrograde Cholangiopancreatogram - Luis Perez MD Diagnostic Imagining Performed 05/07/24 14:13 CT Abd and Pelvis [CT abd pelvis IV con only] Stat 05/10/24 13:30 [place] ERCP biliary ductal Routine 05/10/24 19:57 US GB [US gallbladder] Stat Pending Results Patient Have Any Pending Studies at Discharge: No Discharge Instructions Given to Patient (Per Discharging Provider) Take Flexeril (cyclobenzaprine) 5 mg every 8 hours as needed for muscle cramping Total Time Total Time Spent Total Time Spent (In Minutes): 45 minutes Coding Level of Care Code 07006 INP/OBS DISCH >30 MIN Diagnoses Acute knee pain M25.569 Cholelithiasis with choledocholithiasis K80.70 UTI (urinary tract infection) N39.0 Hematuria presence: without hematuria Urinary tract infection type: site unspecified Expressive aphasia R47.01
--- NOTE | 2024-05-18 11:58 | Coding Query ---
To promote full compliance with coding requirements relating to patient care, provider participation is requested in all cases of transplant case manager uncertainty. Please assist us with the question(s) below: Coding Question(s): The diagnosis below was documented in the 05/12 Orthopedic Consultation, then subsequently fell off all further documentation. Please indicate if it is still a possible diagnosis or ruled out. Physician's Response(s): SEVERE PROTEIN-CALORIE MALNUTRITION ( x ) Diagnosed and POA ( ) Diagnosed and not POA ( ) Ruled out ( ) Other (please specify) MTDD
== END 2024-05-17 13:33 | disposition home health service (06) | DRG 444 ==
LOC: ED 12:59 → 3N 17:33 → SUATTDRO 17:33 → 3N 19:49